=== PATIENT | female | born 1955 | race Caucasian/White ===

== ENCOUNTER 2017-08-10 16:23 | Emergency (ER) | payer OTHER ==
[~2017-08-10] VITALS: Ht 160 cm; Wt 49.0 kg
[~2017-08-10 16:23] MED LIST: ACETAMINOPHEN-1 EAC1 PO; DIAZEPAM5 MG PO; ESTRADIOL1 EA10 TD; HYDROCODON-ACE1 EA11 PO; IBUPROFEN800 MG PO; METOPROLOL TART25 MG PO; NORCO 5-325 TA1 EACH PO; PERCOCET 5-3251 EACH PO; SIMVASTATIN20 MG PO; TOBRADEX ST EYE5 ML OPTH; ZOLPIDEM TART6.25 MG PO
[2017-08-10] MEDS ORDERED: TYLENOL WITH C1 EACH PO (16:40)
== END 2017-08-10 18:39 | disposition home or self-care (01) ==
LOC: ED 16:23
PROC: 0HQKXZZ Repair Right Lower Leg Skin, External Approach (ICD-10-PCS; principal; 2017-08-10)
DX: T81.30XA Disruption of wound, unspecified, initial encounter (principal); I48.91 Unspecified atrial fibrillation; Z98.890 Other specified postprocedural states; Z88.2 Allergy status to sulfonamides; Z88.8 Allergy status to other drugs, medicaments and biological substances; Z90.710 Acquired absence of both cervix and uterus; Z79.899 Other long term (current) drug therapy
CPT/HCPCS: 12002; 90471; 90715; 96372; 99283; J0696

== ENCOUNTER 2019-01-21 08:59 | Emergency (ER) | payer OTHER ==
[~2019-01-21] VITALS: Ht 160 cm; Wt 49.9 kg
--- OUTSIDE RECORDS SUMMARY | ~2019-01-21 | XMS | Clinical Summary ---
Demographics + + + | Address | [address] | | | [place] [address] | + + + | Home Phone | | + + + | Preferred Language | Unknown | + + + | Marital Status | | + + + | Anglican Affiliation | Unknown | + + + | Race | Unknown | + + + | Ethnic Group | Unknown | + + + Author + + + | Author | [facility] | | | and [place] | + + + | Organization | [facility] | | | and [place] | + + + | Address | Unknown | + + + | Phone | Unavailable | + + + Support + + +---------+ + | Name | Relationship | Address | Phone | + + +---------+ + | Diony Vera | ECON | Unknown | | + + +---------+ + | Devon Riggs | ECON | Unknown | | + + +---------+ + | Ricardo Escobar | ECON | Unknown | | + + +---------+ + Care Team Providers + +------+ + | Care Cannery Tender Engineer Name | Role | Phone | + +------+ + | Tomer Wills MD | PP | | + +------+ + Allergies + + + + + + | Active Allergy | Reactions | Severity | Noted | Comments | | | | | Date | | + + + + + + | Diltiazem | Other (See Comments) | Low | 02/18/20 | Severe | | | | | 17 | migraines,"bleeding | | | | | | blood vessels in my | | | | | | eyes" | + + + + + + | Droperidol | Nausea Only | Low | 10/14/20 | | | | | | 11 | | + + + + + + | Metoclopramide | Nausea Only | Low | 10/14/20 | | | | | | 11 | | + + + + + + | Sulfa Antibiotics | Nausea Only | Low | 10/23/20 | | | | | | 10 | | + + + + + + | Tizanidine | Other (See Comments) | Low | | AKA "Zanaflex" - | | Hydrochloride | | | | Severe dizziness | + + + + + + Current Medications + + +--------+---------+------+------+-------+ | Prescription | Sig. | Disp. | Refills | Star | End | Statu | | | | | | t | Date | s | | | | | | Date | | | + + +--------+---------+------+------+-------+ | simvastatin | Take 20 mg by mouth | | | | | Activ | | (ZOCOR) 20 mg tablet | nightly. | | | | | e | + + +--------+---------+------+------+-------+ | Pediatric Multiple | Take 1 tablet by | | | | | Activ | | Vit-C-FA | mouth Every other | | | | | e | | (NICOLLE GUMMIES | day. | | | | | | | OMEGA-3 DHA PO) | | | | | | | + + +--------+---------+------+------+-------+ | ondansetron | Take 1 tablet by | 2 | 0 | 10/1 | | Activ | | (ZOFRAN) 4 mg tablet | mouth as needed for | tablet | | 7/20 | | e | | | Nausea. Begin bowel | | | 16 | | | | | prep, if nausea, | | | | | | | | stop prep, take med | | | | | | | | and restart prep 1 | | | | | | | | hr later. | | | | | | + + +--------+---------+------+------+-------+ | diazePAM (VALIUM) | Take 5 mg by mouth | | | 03/2 | | Activ | | 5 mg tablet | as needed. | | | 3/20 | | e | | | | | | 17 | | | + + +--------+---------+------+------+-------+ | zolpidem (AMBIEN | Take 6.25 mg by | | | 04/0 | | Activ | | CR) 6.25 mg CR | mouth nightly as | | | 4/20 | | e | | tablet | needed for Sleep. | | | 17 | | | + + +--------+---------+------+------+-------+ | ibuprofen (ADVIL, | Take 200 mg by mouth | | | | | Activ | | MOTRIN) 200 mg | every 8 hours as | | | | | e | | tablet | needed for Pain. | | | | | | + + +--------+---------+------+------+-------+ | estradiol | Patch 0.5mg, twice | | | | | Activ | | (VIVELLE-DOT) 0.025 | per week. | | | | | e | | MG/24HR | | | | | | | + + +--------+---------+------+------+-------+ | metoprolol | Take 12.5 mg by | | | | | Activ | | tartrate (LOPRESSOR) | mouth 2 times daily. | | | | | e | | 25 mg tablet | | | | | | | + + +--------+---------+------+------+-------+ | | Take 1 tablet by | | | | | Activ | | acetaminophen-codein | mouth every 12 hours | | | | | e | | e (TYLENOL #3) | as needed for Pain. | | | | | | | 300-30 mg per tablet | | | | | | | + + +--------+---------+------+------+-------+ | aspirin 325 mg | Take 1 tablet by | 30 | | | | Activ | | tablet | mouth Daily. | tablet | | | | e | + + +--------+---------+------+------+-------+ Active Problems + + + | Problem | Noted Date | + + + | Body mass index (BMI) less than 20 | 02/15/2017 | + + + | HTN (hypertension) | 02/15/2017 | + + + | H/O Hysterectomy | 02/15/2017 | + + + | Beta Chandler - Daily Use | 02/15/2017 | + + + | H/O RIGHT Patellar fracture - Dec 2016 | 02/15/2017 | + + + | H/O RIGHT Ankle fracture - 2005 | 02/15/2017 | + + + | Pain Patella K-Wires - Feb 2017 | 02/15/2017 | + + + | Beat, premature ventricular | 01/12/2012 | + + + | Supraventricular tachycardia (HCC) | 01/12/2012 | + + + | UPPER RESPIRATORY INFECTION | | + + + | ANOREXIA | | + + + | Anxiety - Anxiolytic Use | | + + + | Insomnia | | + + + Social History + +-------+ [...] + +---------+ + | Alcohol Use | Drinks/We | oz/Week | Comments | | | ek | | | + + +---------+ + | No | 0 | 0.0 | | | | Standard | | | | | drinks or | | | | | | | | | | equivalen | | | | | t | | | + + +---------+ + + + + | Sex Assigned at | Date Recorded | | | | + + + | Not on file | | + + + Last Filed Vital Signs + + + + | Vital Sign | Reading | Time Taken | + + + + | Blood Pressure | 131/81 | 07/14/20171114 PDT | + + + + | Pulse | 52 | 07/14/20171114 PDT | + + + + | Temperature | 36.5 C (97.7 F) | 08/26/2017812 PDT | + + + + | Respiratory Rate | 16 | 07/14/20171114 PDT | + + + + | Oxygen Saturation | 98% | 07/14/20171114 PDT | + + + + | Inhaled Oxygen | - | - | | Concentration | | | + + + + | Weight | 49.4 kg (109 lb) | 08/26/2017812 PDT | + + + + | Height | 160 cm (5' 3") | 08/26/2017812 PDT | + + + + | Body Mass Index | 19.31 | 08/26/2017812 PDT | + + + + Plan of Treatment + + + + + | Health Maintenance | Due Date | Last Done | Comments | + + + + + | Hepatitis C | | | | | Screening | 5 | | | + + + + + | Vaccine: | | | | | Dtap/Tdap/Td (1 - | 4 | | | | Tdap) | | | | + + + + + | BREAST CANCER | | | | | SCREENING (MAMM Q2 | 5 | | | | YEARS 50-74) | | | | + + + + + | Vaccine: Zoster (1 | | | | | of 2) | 5 | | | + + + + + | Colorectal Cancer | | 06/28/2007 | | | Screening | 7 | | | | (Colonoscopy) | | | | + + + + + | Vaccine: Influenza | | | | | (#1) | 8 | | | + + + + + Results Not on filefrom Last 3 Months Insurance + +--------+ +--------+ +---------+ | Payer | Benefi | Subscriber | Type | Phone | Address | | | t Plan | ID | | | | | | / | | | | | | | Group | | | | | + +--------+ +--------+ +---------+ | PACIFICSOURCE | PACIFI | [id number] | Indemn | +- | | | | CSOURC | | ity | [id number] | | | | E | | | | | | | ADMIN | | | | | | | PREF | | | | | | | PSN | | | | | + +--------+ +--------+ +---------+ | GEHA | GEHA | [id number] | PPO | +- | | | | AETNA | | | [phone] | | | | PPO | | | | | + +--------+ +--------+ +---------+ + +--------+ +--------+ + + | Guarantor Name | Accoun | Relation to | Date | Phone | Billing Address | | | t Type | Patient | of | | | | | | | | | | + +--------+ +--------+ + + | LILIAN VERA | Person | Self | [birth year] | Home: | [id number] [place] [address] | | JUNE | al/Jose Enrique | | 1955 | [phone] | [place] [address] | | | vivien | | | [phone] | | + +--------+ +--------+ + +
--- OUTSIDE RECORDS SUMMARY | ~2019-01-21 | XMS | Clinical Summary ---
Demographics + + + | Address | [address] | | | [place] [address] | + + + | Home Phone | | + + + | Preferred Language | Unknown | + + + | Marital Status | | + + + | Anabaptism Affiliation | Unknown | + + + | Race | Unknown | + + + | Ethnic Group | Unknown | + + + Author + + + | Author | [facility] | + + + | Organization | [facility] | + + + | Address | Unknown | + + + | Phone | Unavailable | + + + Support + + + + + | Name | Relationship | Address | Phone | + + + + + | Ricardo Vera | ECON | [address] | | | | | [place] | | | | | [address] | | + + + + + | Diony Escobar | ECON | Unknown | | + + + + + | Barbara Velásquez | ECON | Unknown | | + + + + + Care Team Providers + +------+ + | Care Racing Secretary Name | Role | Phone | + [...] +------+-------+ + | PREMERA | PREMER | [id number] | | | [address] [address] | | | A | [address] | | | [place] | | | [place] | | | | [phone] | | | [place] | | | | | | | [place] | | | | | + +--------+ +------+-------+ + | [employer] | FC-NET | [id number] | | | | | | WORK [...] | Self | [birth year] | Home: | [address] | | | al/Fam | | 1955 | [phone] [place] [address] | | | vivien | | | [address] | | + +--------+ +--------+ + +
--- OUTSIDE RECORDS SUMMARY | ~2019-01-21 | XMS | Clinical Summary ---
Demographics + + + | Address | [address] | | | [place] [address] | + + + | Home Phone | | + + + | Preferred Language | Unknown | + + + | Marital Status | | + + + | Hindu Affiliation | Unknown | + + + | Race | Unknown | + + + | Ethnic Group | Unknown | + + + Author + + + | Author | [facility] | | | and [place] | + + + | Organization | [facility] | | | and [place] | [...] Team Providers + +------+ + | Care Assurance Manager Name | Role | Phone | [...] +--------+ +---------+ | PACIFICSOURCE | PACIFI | [id number] | Indemn | +- | | | | [employer]OURC | | ity | [phone] | | | | E | | | | | | | ADMIN | | | | | | | PREF | | | | | | | PSN | | | | | + +--------+ +--------+ +---------+ | GEHA | GEHA | [id number] | PPO | +- | | | [...] | Self | [birth year] | Home: | [id number] [place] [address] | | JUNE | al/Jose Enrique | | 1955 | [phone] | [place] [address] | | | vivien | | | [phone] | | + +--------+ +--------+ + +
--- OUTSIDE RECORDS SUMMARY | ~2019-01-21 | XMS | Clinical Summary ---
Demographics + + + | Address | [address] | | | [place] [address] | + + + | Home Phone | | + + + | Preferred Language | Unknown | + + + | Marital Status | | + + + | Adventist Affiliation | Unknown | + + + | Race | Unknown | + + + | Ethnic Group | Unknown | + + + Author + + + | Author | [facility] | + + + | Organization | [facility] | + + + | Address | Unknown | + + + | Phone | Unavailable | + + + Support + + + + + | Name | Relationship | Address | Phone | + + + + + | Ricardo Vera | ECON | [address] | | | | | [place] | | | | | [address] | | + + + + + | Diony Escobar | ECON | Unknown | | + + + + + | Barbara Velásquez | ECON | Unknown | | + + + + + Care Team Providers + +------+ + | Care Plain Clothes Police Officer Name | Role | Phone | [...] +------+-------+ + | PREMERA | PREMER | [id number] | | | [address] [address] | | | A | 2 | | | [place] | | | [place] | | | | [phone] | | | [place] | | | | | | | [place] | | | | | + +--------+ +------+-------+ + | [employer] | FC-NET | [id number] | | | | | | WORK [...] | Self | [birth year] | Home: | [address] | | | al/Fam | | 1955 | [phone] | [place] [address] | | | vivien | | | [address] | | + +--------+ +--------+ + +
[~2019-01-21 08:59] MED LIST changes: +TYLENOL WITH C1 EACH PO
--- OUTSIDE RECORDS SUMMARY | 2019-01-21 09:02 | XMS ---
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 EGely VISIT COUNT (12 MO.) [address] [facility] [place] TOTAL 1 NOTE: Visits indicate total known visits. ED/UCC VISIT TRACKING (12 MO.) 01/21/2019 09:00 [facility] [place] TYPE: Emergency COMPLAINT: - RAPID HEART RATE INPATIENT VISIT TRACKING (12 MO.) No inpatient visits to display in this time frame [id number]
[2019-01-21] MEDS ORDERED: SIMVASTATIN20 MG PO (09:28)
== END 2019-01-21 10:07 | disposition home or self-care (01) ==
LOC: ED 08:59
DX: I47.1 Supraventricular tachycardia (principal); I48.91 Unspecified atrial fibrillation; Z90.710 Acquired absence of both cervix and uterus; Z88.2 Allergy status to sulfonamides; Z88.8 Allergy status to other drugs, medicaments and biological substances; Z79.899 Other long term (current) drug therapy
CPT/HCPCS: 0296T; 0297T; 0298T; 99284

== ENCOUNTER 2019-02-17 06:09 | Emergency (ER) | payer OTHER ==
[~2019-02-17] VITALS: Ht 160 cm; Wt 49.9 kg
--- OUTSIDE RECORDS SUMMARY | ~2019-02-17 | XMS | Clinical Summary ---
Demographics + + + | Address | [address] | | | [place] [address] | + + + | Home Phone | | + + + | Preferred Language | Unknown | + + + | Marital Status | | + + + | Rastafarian Affiliation | Unknown | + + + | Race | Unknown | + + + | Ethnic Group | Unknown | + + + Author + + + | Author | [facility] | | | and [place] | + + + | Organization | [facility] | | | and [place] | + + + | Address | Unknown | + + + | Phone | Unavailable | + + + Support + + +---------+ + | Name | Relationship | Address | Phone | + + +---------+ + | Diony Reynoso | ECON | Unknown | | + + +---------+ + | Devon Riggs | ECON | Unknown | | + + +---------+ + | Ricardo Escobar | ECON | Unknown | | + + +---------+ + Care Team Providers + +------+ + | Care Hospital Orderly Name | Role | Phone | + [...] | + + + + + + Medications + + + +---------+------+------+-------+ | Medication | Sig | Dispensed | Refills | Star | End | Statu | | | | | | t | Date | s | | | | | | Date | | | + + + +---------+------+------+-------+ | simvastatin | Take 20 mg by mouth | | 0 | | | Activ | | (ZOCOR) 20 mg tablet | nightly. | | | | | e | + + + +---------+------+------+-------+ | Pediatric Multiple | Take 1 tablet by | | 0 | | | Activ | | Vit-C-FA | mouth Every other | | | | | e | | (NICOLLE GUMMIES | day. | | | | | | | OMEGA-3 DHA PO) | | | | | | | + + + +---------+------+------+-------+ | ondansetron | Take 1 tablet by [...] | | | | + + + +---------+------+------+-------+ | diazePAM (VALIUM) | Take 5 mg by mouth | | 0 | 03/2 | | Activ | | 5 mg tablet | as needed. | | | 3/20 | | e | | | | | | 17 | | | + + + +---------+------+------+-------+ | zolpidem (AMBIEN | Take 6.25 mg by | | 0 | 04/0 | | Activ | | CR) 6.25 mg CR | mouth nightly as | | | 4/20 | | e | | tablet | needed for Sleep. | | | 17 | | | + + + +---------+------+------+-------+ | ibuprofen (ADVIL, | Take 200 mg by mouth | | 0 | | | Activ | | MOTRIN) 200 mg | every 8 hours as | | | | | e | | tablet | needed for Pain. | | | | | | + + + +---------+------+------+-------+ | estradiol | Patch 0.5mg, twice | | 0 | | | Activ | | (VIVELLE-DOT) 0.025 | per week. | | | | | e | | MG/24HR | | | | | | | + + + +---------+------+------+-------+ | metoprolol | Take 12.5 mg by | | 0 | | | Activ | | tartrate (LOPRESSOR) | mouth 2 times daily. | | | | | e | | 25 mg tablet | | | | | | | + + + +---------+------+------+-------+ | | Take 1 tablet by | | 0 | | | Activ | | acetaminophen-codein | mouth every 12 hours | | | | | e | | e (TYLENOL #3) | as needed for Pain. | | | | | | | 300-30 mg per tablet | | | | | | | + + + +---------+------+------+-------+ | aspirin 325 mg | Take 1 tablet by | 30 | 0 | | | Activ | | tablet | mouth Daily. | tablet | | | | e | + + + +---------+------+------+-------+ Active Problems + + + | Problem [...] | + + + | Supraventricular tachycardia | 01/12/2012 | + + + | [...] recent travel history available. | + + Last Filed Vital Signs + [...] | + + + + + | Breast Cancer | | | | | Screening (Ages | 5 | | | | 50-74) | | | | + + [...] Vaccine: Influenza | | | | | (Season Ended) | 9 | | | + + + + + Results Not on filefrom Last 3 Months Insurance + +--------+ +--------+ +---------+--------+ | Payer | Benefi | Subscriber | Effect | Phone | Address | Type | | | t Plan | ID | estefani | | | | | | / | | Dates | | | | | | Group | | | | | | + +--------+ +--------+ +---------+--------+ | PACIFICSOURCE | PACIFI | [id number] | 06/08/20 | [id number] | | Indemn | | | [employer]OURC | | 17-Pre | 2 | | ity | | | E | | sent | | | | | | ADMIN | | | | | | | | PREF | | | | | | | | PSN | | | | | | + +--------+ +--------+ +---------+--------+ | GEHA | GEHA | [id number] | | [id number] | | PPO | | | AETNA | | 016-Pr | 6 | | | | | PPO | | esent | | | | + +--------+ +--------+ +---------+--------+ + +--------+ +--------+ + + | Guarantor Name | Accoun | Relation to | Date | Phone | Billing Address | | | t Type | Patient | of | | | | | | | | | | + +--------+ +--------+ + + | Lilian Reynoso | Person | Self | [birth year] | | [address] | | [place] | al/Fam | | 1955 | [phone] | [place] [address] | | | vivien | | | 9 (Home) | | + +--------+ +--------+ + + Advance Directives Patient has advance care planning documents, and code status on file. For more information, please contact:[facility] [place] [address] + + + + + | Code Status | Date | Date | Comments | | | Activated | Inactivated | | + + + + + | Full Code | 07/14/2017 | 07/14/2017 | | | | 9:34 | 14:18 | | + + + + + + + + +---+ | | | | | + + + +---+ | Full Code | 02/15/2017 | 02/15/2017 | | | | 16:08 | 20:05 | | + + + +---+
--- OUTSIDE RECORDS SUMMARY | ~2019-02-17 | XMS | Clinical Summary ---
Demographics + + + | Address | [address] | | | [place] [address] | + + + | Home Phone | | + + + | Preferred Language | Unknown | + + + | Marital Status | | + + + | Lutheran Affiliation | Unknown | + + + | Race | Unknown | + + + | Ethnic Group | Unknown | + + + Author + + + | Author | [facility] | + + + | Organization | [facility] | + + + | Address | Unknown | + + + | Phone | Unavailable | + + + Support + + + + + | Name | Relationship | Address | Phone | + + + + + | Ricardo Vera | ECON | [address] | | | | | [place] | | | | | [address] | | + + + + + | Diony Escobar | ECON | Unknown | | + + + + + | Barbara Velásquez | ECON | Unknown | | + + + + + Care Team Providers + +------+ + | Care Obstetrics Nurse Name | Role | Phone | + [...] +------+-------+ + | PREMERA | PREMER | [id number] | | | [address] [address] | | | A | 2 | | | [place] | | | [place] | | | | [phone] | | | [place] | | | | | | | [place] | | | | | + +--------+ +------+-------+ + | [employer] | FC-NET | [id number] | | | | | | WORK [...] | Self | [birth year] | Home: | [address] | | | al/Fam | | 1955 | [phone] | [place] [address] | | | vivien | | | [address] | | + +--------+ +--------+ + +
--- OUTSIDE RECORDS SUMMARY | ~2019-02-17 | XMS | Clinical Summary ---
Demographics + + + | Address | [address] | | | [place] [address] | + + + | Home Phone | | + + + | Preferred Language | Unknown | + + + | Marital Status | | + + + | Nondenominational Affiliation | Unknown | + + + | Race | Unknown | + + + | Ethnic Group | Unknown | + + + Author + + + | Author | [facility] | + + + | Organization | [facility] | + + + | Address | Unknown | + + + | Phone | Unavailable | + + + Support + + + + + | Name | Relationship | Address | Phone | + + + + + | Ricardo Vera | ECON | [address] | | | | | [place] | | | | | [address] | | + + + + + | Diony Escobar | ECON | Unknown | | + + + + + | Barbara Velásquez | ECON | Unknown | | + + + + + Care Team Providers + +------+ + | Care Cook Helper Meat Name | Role | Phone | + [...] +------+-------+ + | PREMERA | PREMER | [id number] | | | [address] [address] | | | A | [address] | | | [place] | | | [place] | | | | [phone] | | | [place] | | | | | | | [place] | | | | | + +--------+ +------+-------+ + | [employer] | FC-NET | [id number] | | | | | | WORK [...] | Self | [birth year] | Home: | [address] | | | al/Fam | | 1955 | [phone] | [place] [address] | | | vivien | | | [address] | | + +--------+ +--------+ + +
--- OUTSIDE RECORDS SUMMARY | ~2019-02-17 | XMS | Clinical Summary ---
Demographics + + + | Address | [address] | | | [place] [address] | + + + | Home Phone | | + + + | Preferred Language | Unknown | + + + | Marital Status | | + + + | Samaritan Affiliation | Unknown | + + + | Race | Unknown | + + + | Ethnic Group | Unknown | + + + Author + + + | Author | [facility] | | | and [place] | + + + | Organization | [facility] | | | and [...] Team Providers + +------+ + | Care Saddle Mechanic Name | Role | Phone | [...] +--------+ +---------+--------+ | [employer]OURCE | PACIFI | [id number] | 06/08/20 | [id number] | | Indemn | | | [employer]OURC | | 17-Pre | 2 | | ity | | | E | | sent | | | | | | ADMIN | | | | | | | | PREF | | | | | | | | PSN | | | | | | + +--------+ +--------+ +---------+--------+ | GEHA | GEHA | [id number] | | [id number] | | PPO | | | AETNA [...] Person | Self | [birth year] | | [address] | | [place] | al/Fam | | 1955 | [phone] | [place] [address] | | | vivien | | | 9 (Home) | | + +--------+ +--------+ + + Advance Directives Patient has advance care planning documents, and code status on file. For more information, please contact:[facility] [place] [address] + + + + + | Code [...]
--- OUTSIDE RECORDS SUMMARY | 2019-02-17 06:12 | XMS ---
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 [place] VISIT COUNT (12 MO.) [address] [place] [address] TOTAL 2 NOTE: Visits indicate total known visits. ED/UCC VISIT TRACKING (12 MO.) 02/17/2019 06:10 [facility] [place] TYPE: Emergency COMPLAINT: - SOB 01/21/2019 09:00 [facility] [place] TYPE: Emergency COMPLAINT: - RAPID HEART RATE DIAGNOSES: - Palpitations - Other long-term (current) drug therapy - Supraventricular tachycardia - Acquired absence of both cervix and uterus - Allergy status to sulfonamides status - Unspecified atrial fibrillation - Allergy status to other drugs, medicaments and biological substances status INPATIENT VISIT TRACKING (12 MO.) No inpatient visits to display in this time frame [id number]
--- NOTE | 2019-02-17 15:52 | EKG ---
[facility] [address] [place], [place] [address] Signed Sinus tachycardia Low voltage QRS Septal infarct , age undetermined Abnormal ECG No previous ECGs available Confirmed by KEVIN FREITAS MD ([id number]) on 02/17/2019 3:51:50 PM Electronically Signed By: KEVIN FREITAS MD 02/17/19 1552 PATIENT NAME: JONELLE VERA Electrocardiogram DATE OF : 55 PHYSICIAN: KEVIN FREITAS MD REPORT #: [id number] REPORT IS CONFIDENTIAL AND NOT TO BE RELEASED WITHOUT AUTHORIZATION
== END 2019-02-17 08:15 | disposition home or self-care (01) ==
LOC: ED 06:09
DX: I48.91 Unspecified atrial fibrillation (principal); Z90.710 Acquired absence of both cervix and uterus; Z88.2 Allergy status to sulfonamides; Z88.8 Allergy status to other drugs, medicaments and biological substances; Z79.899 Other long term (current) drug therapy
CPT/HCPCS: 71045; 80053; 83735; 84484; 85025; 93005; 93010; 99285-25; J7030

== ENCOUNTER 2019-11-07 09:15 | Emergency (ER) | payer OTHER ==
[~2019-11-07] VITALS: Ht 160 cm; Wt 49.9 kg
--- OUTSIDE RECORDS SUMMARY | ~2019-11-07 | XMS | Encounter Summary ---
Demographics + + + | Address | [address] | | | [place] [address] | + + + | Home Phone | | + + + | Preferred Language | Unknown | + + + | Marital Status | | + + + | Muslim Affiliation | Unknown | + + + | Race | Unknown | + + + | Ethnic Group | Unknown | + + + Author + + + | Author | [facility] | | | and [place] | + + + | Organization | [facility] | | | and [place] | + + + | Address | Unknown | + + + | Phone | Unavailable | + + + Support + + +---------+ + | Name | Relationship | Address | Phone | + + +---------+ + | Diony Motanic | ECON | Unknown | | + + +---------+ + | Devon Riggs | ECON | Unknown | | + + +---------+ + | Ricardo Escobar | ECON | Unknown | | + + +---------+ + Care Team Providers + +------+ + | Care Assembler Movement Name | Role | Phone | + +------+ + | Tomer Wills MD | PCP | | + +------+ + Reason for Visit + + + | Reason | Comments | + + + | Follow-up | right knee | + + + Encounter Details +--------+---------+ + + + | Date | Type | Department | Care Team | Description | +--------+---------+ + + + | 05/31/ | Office | [facility] | Tyler Florian | S/P ORIF (open | | 2017 | Visit | ORTHOPEDIC SURGERY | MD Chanda Medina [facility] | reduction internal | | | | [address] [place] [address] | KAREEM THORNTON | fixation) fracture | | | | [place] | [address] | (Primary Dx) | | | | [address] | | | | | | [phone] | | | +--------+---------+ + + + Social History + +-------+ +--------+------+ | Tobacco Use | Types | Packs/Day | Years | Date | | | | | Used | | + +-------+ +--------+------+ | Never Smoker | | | | | + +-------+ +--------+------+ + +---+---+---+ | Smokeless Tobacco: | | | | | Never Used | | | | + +---+---+---+ + + +---------+ + | Alcohol Use | Drinks/Week | oz/Week | Comments | + + +---------+ + | Not Asked | 0 Standard drinks | 0.0 | | | | or equivalent | | | + + +---------+ + + + + | Sex Assigned at | Date Recorded | | | | + + + | Not on file | | + + + + + + + | Job Start Date | Occupation | Industry | + + + + | Not on file | Not on file | Not on file | + + + + + + + + | Travel History | Travel Start | Travel End | + + + + + + | No recent travel history available. | + + documented as of this encounter Last Filed Vital Signs + + + + + | Vital Sign | Reading | Time Taken | Comments | + + + + + | Blood Pressure | - | - | | + + + + + | Pulse | - | - | | + + + + + | Temperature | 36.5 C (97.7 F) | 2017 10:43 AM | | | | | PDT | | + + + + + | Respiratory Rate | - | - | | + + + + + | Oxygen Saturation | - | - | | + + + + + | Inhaled Oxygen | - | - | | | Concentration | | | | + + + + + | Weight | 49 kg (108 lb) | 2017 10:43 AM | | | | | PDT | | + + + + + | Height | 160 cm (5' 3") | 2017 10:43 AM | | | | | PDT | | + + + + + | Body Mass Index | 19.13 | 2017 10:43 AM | | | | | PDT | | + + + + + documented in this encounter Progress Notes Tyler Florian MD - 2017 10:30 AM Veda returns today for follow-up of her right knee patellar fracture that was treated by Dr. Parekh on December 18 with open reduc tion and internal fixation utilizing K wires and a figure of 8 cerclage wire. She then subs equently underwent hardware modification that I performed on February 15 of this year which inc luded resection of a protruding portion of one K wire. She has been attending travel physical therapist apy faithfully and has regained a functional range of motion and would very much like to hav e her hardware removed because of continued ongoing hardware irritation. Exam of the patient's right knee reveals that she has a well-healed anterior knee incision. There is mild swelling of the knee but no significant effusion is noted. The patient has motion from 0-90. Imaging: X-rays taken of the right knee from today are reviewed which show that the fractur e is healed nicely. The hardware remains well placed. Advice: I feel it is reasonable to proceed with hardware removal from her right knee as she has remained symptomatic as expected. We therefore will schedule [facility] for right knee earnest roderick removal following financial clearance at a time that is convenient for her schedule.El ectronically signed by Tyler Florian MD at 2017 6:26 PM PDTdocumented in this encounter Plan of Treatment Not on filedocumented as of this encounter Visit Diagnoses + + | Diagnosis | + + | S/P ORIF (open reduction internal fixation) fracture - Primary | + + documented in this encounter
--- OUTSIDE RECORDS SUMMARY | ~2019-11-07 | XMS | Encounter Summary ---
Demographics + + + | Address | [address] | | | [place] [address] | + + + | Home Phone | | + + + | Preferred Language | Unknown | + + + | Marital Status | | + + + | Christianity Affiliation | Unknown | + + + | Race | Unknown | + + + | Ethnic Group | Unknown | + + + Author + + + | Author | [facility] | | | and [place] | + + + | Organization | [facility] | | | and [place] [...] Team Providers + +------+ + | Care Last Picker Name | Role | Phone | + +------+ + | Tomer Wills MD | PCP | | + +------+ + Reason for Visit + + + | Reason | Comments | + + + | Appointment Question | | + + + Encounter Details +--------+ + + + + | Date | Type | Department | Care Team | Description | +--------+ + + + + | 03/02/ | Telephone | [facility] | Tyler Florian | Appointment Question | | 2016 | | ORTHOPEDIC SURGERY | MD Carol [address] | | | | | [address] [facility] | [place], [place] | | | | | [place], [place] | [address] | | | | | [address] | | | | | | [phone] | | | +--------+ + + + + Social History + +-------+ [...] + + documented as of this encounter Plan of Treatment Not on filedocumented as of this encounter Visit Diagnoses Not on filedocumented in this encounter"
--- OUTSIDE RECORDS SUMMARY | ~2019-11-07 | XMS | Encounter Summary ---
Demographics + + + | Address | [address] | | | [place] [address] | + + + | Home Phone | | + + + | Preferred Language | Unknown | + + + | Marital Status | | + + + | Sabianism Affiliation | Unknown | + + + | Race | Unknown | + + + | Ethnic Group | Unknown | + + + Author + + + | Author | [facility] | | | and [place] | + + + | Organization | [facility] | | | and [place] [...] Team Providers + +------+ + | Care Academic Advising Director Name | Role | Phone | + +------+ + | Tomer Wills MD | PCP | | + +------+ + Reason for Visit Auth/Cert +--------+--------+ + + + + | Status | Reason | Specialty | Diagnoses / | Referred By | Referred To | | | | | Procedures | Contact | Contact | +--------+--------+ + + + + | | | | Diagnoses | | | | | | | S/P ORIF | | | | | | | (open | | | | | | | reduction | | | | | | | internal | | | | | | | fixation) | | | | | | | fracture | | | | | | | (Z96.7, | | | | | | | Z87.81) | | | | | | | Procedures | | | | | | | [place] REMOVAL | | | | | | | DEEP IMPLANT | | | | | | | Right Knee | | | | | | | Hardware | | | | | | | Removal (s/p | | | | | | | [facility] | | | +--------+--------+ + + + + Encounter Details +--------+---------+ + + + | Date | Type | Department | Care Team | Description | +--------+---------+ + + + | 07/14/ | Surgery | [facility] | Tyler Florian | Right Knee Hardware | | 2017 | | MED CTR OR INTRA OP | MD Carol [address] | Removal (s/p | | | | [address] | [place] | [facility] | | | | [place], [place] | [address] | | | | | [address] | | | | | | [phone] | | | +--------+---------+ + + + [...] Comments | + + +---------+ + | No | 0 Standard drinks | 0.0 | [...] + + + | Blood Pressure | 131/81 | 07/14/2017 11:15 AM | | | | | PDT | | + + + + + | Pulse | 52 | 07/14/2017 11:15 AM | | | | | PDT | | + + + + + | Temperature | 36.6 C (97.9 F) | 07/14/2017 9:33 AM | | | | | PDT | | + + + + + | Respiratory Rate | 16 | 07/14/2017 11:15 AM | | | | | PDT | | + + + + + | Oxygen Saturation | 98% | 07/14/2017 11:15 AM | | | | | PDT | | + + + + + | Inhaled Oxygen | - | - | | | Concentration | | | | + + + + + | Weight | 49.4 kg (109 lb) | 07/14/2017 7:22 AM | | | | | PDT | | + + + + + | Height | 160 cm (5' 3") | 07/14/2017 7:22 AM | | | | | PDT | | + + + + + | Body Mass Index | 19.31 | 07/14/2017 7:22 AM | | | | | PDT | | + + + + + documented in this encounter Discharge Instructions Instructions Loida Sanchez RN - 07/14/2017 Recovery After Procedural Sedation (Adult) You have been given medicine by vein to make you sleep during your surgery. This may have i ncluded both a pain medicine and sleeping medicine. Most of the effects have worn off. But y ou may still have some drowsiness for the next 6 to 8 hours. Home care Follow these guidelines when you get home: For the next 8 hours, you should be watched by a responsible adult. This person should m amy sure your condition is not getting worse. Don't drink any alcoholfor the next [address], operate dangerous machinery, or make important business or personal decisio nsduring the next 24 hours. Note: Your healthcare provider may tell you not to take any medicine by mouth for pain or s leep in the next 4 hours. These medicines may react with the medicines you were given in the hospital. This could cause a much stronger response than usual. Follow-up care Follow up with your healthcare provider if you are not alert and back to your usual level o f activity within 12 hours. When to seek medical advice Call your healthcare provider right away if any of these occur: Drowsiness gets worse Weakness or dizziness gets worse Repeated vomiting You can't be awakened Date Last Reviewed: 08/25/201619992044-4715 [facility]. [address] [place] [address], [place] [address]. All righ ts reserved. This information is not intended as a substitute for professional medical care. Always follow your healthcare professional's instructions. Please keep appointment in Dr Florian's office as already scheduled. Keep bandages clean and dry at right knee You can remove bandages from right knee in 5 days. Take pain medications as prescribed if necessary Take one aspirin 325 mg daily for the next 30 days for blood thinning therapy. If you have any questions, comments or concerns please contact our office. Do not exceed 4,000 mg of acetaminophen (Tylenol) per day. Hydrocodone-acetaminophen ([place] ) and Oxycodone-acetaminophen (Percocet) have 325 mg acetaminophen per tablet. Regular stren gth acetaminophen is 325 mg per tablet. Extra strength has 500 mg per tablet. Do not consume alcohol while taking opioid mediations. If constipation arises, try docusate-senna one tablet twice daily; milk of magnesia 30 mL o nce each night; or Miralax one capful (17 grams) dissolved in half a cup of water once daily for 3 days. If constipation does not resolve within 3 days after discharge, contact the doc tor's office. documented in this encounter Medications at Time of Discharge + + + +---------+ + + | Medication | Sig | Dispensed | Refills | Start | End Date | | | | | | Date | | + + + +---------+ + + | | Take 1 tablet by | | 0 | | | | acetaminophen-codein | mouth every 12 hours | | | | | | e (TYLENOL #3) | as needed for Pain. | | | | | | 300-30 mg per tablet | | | | | | + + + +---------+ + + | aspirin 325 mg | Take 1 tablet by | 30 | 0 | | | | tablet | mouth Daily. | tablet | | | | + + + +---------+ + + | diazePAM (VALIUM) | Take 5 mg by mouth | | 0 | 03//20 | | | 5 mg tablet | as needed. | | | 17 | | + + + +---------+ + + | estradiol | Patch 0.5mg, twice | | 0 | | | | (VIVELLE-DOT) 0.025 | per week. | | | | | | MG/24HR | | | | | | + + + +---------+ + + | ibuprofen (ADVIL, | Take 200 mg by mouth | | 0 | | | | MOTRIN) 200 mg | every 8 hours as | | | | | | tablet | needed for Pain. | | | | | + + + +---------+ + + | metoprolol | Take 12.5 mg by | | 0 | | | | tartrate (LOPRESSOR) | mouth 2 times daily. | | | | | | 25 mg tablet | | | | | | + + + +---------+ + + | ondansetron | Take 1 tablet by | 2 | 0 | /17/20 | | | (ZOFRAN) 4 mg tablet | mouth as needed for | tablet | | 16 | | | | Nausea. Begin bowel | | | | | | | prep, if nausea, | | | | | | | stop prep, take med | | | | | | | and restart prep 1 | | | | | | | hr later. | | | | | + + + +---------+ + + | Pediatric Multiple | Take 1 tablet by | | 0 | | | | Vit-C-FA | mouth Every other | | | | | | (NICOLLE GUMMILIN | day. | | | | | | OMEGA-3 DHA PO) | | | | | | + + + +---------+ + + | simvastatin | Take 20 mg by mouth | | 0 | | | | (ZOCOR) 20 mg tablet | nightly. | | | | | + + + +---------+ + + | zolpidem (AMBIEN | Take 6.25 mg by | | 0 | 02/10/20 | | | CR) 6.25 mg CR | mouth nightly as | | | 17 | | | tablet | needed for Sleep. | | | | | + + + +---------+ + + | | Take 1 tablet by | 60 | 0 | 07/14/20 | | | HYDROcodone-acetamin | mouth EVERY 4 TO 6 | tablet | | 17 | 7 | | ophen (NORCO) 10-325 | HOURS NEEDED for | | | | | | mg per tablet | Pain. | | | | | + + + +---------+ + + documented as of this encounter Plan of Treatment Not on filedocumented as of this encounter Procedures + +--------+ + + + | Procedure Name | Priori | Date/Time | Associated Diagnosis | Comments | | | ty | | | | + +--------+ + + + | REMOVE HARDWARE | | 07/14/2017 | S/P ORIF (open | | | LOWER EXTREMITY | | 8:31 AM | reduction internal | | | | | PDT | fixation) fracture | | | | | | (Z96.7, Z87.81) | | + +--------+ + + + documented in this encounter Visit Diagnoses Not on filedocumented in this encounter Administered Medications + +--------+---------+------+------+------+ | Medication Order | MAR | Action | Dose | Rate | Site | | | Action | Date | | | | + +--------+---------+------+------+------+ + +---+ | albuterol-ipratropium (DUONEB) | | | 2.5-0.5 mg/3 mL nebulizer | | | solution 3 mL 3 mL, | | | Nebulization, ONCE PRN, Wheezing, | | | Shortness of Breath, Starting | | | Wed07/14/17 at 0922, For 1 dose, | | | Recovery/Phase I | | + +---+ | | | + +---+ | diphenhydrAMINE (BENADRYL) 12.5 | | | mg/5 mL liquid 25 mg 25 mg, | | | Oral, EVERY 4 HOURS PRN, Itching, | | | Starting Wed07/14/17 at 0934, | | | Give nalbuphine 1st, if | | | ineffective or not ordered, | | | administer diphenhydrAMINE. | | | Oral route is preferred., | | | Post-op/Phase II | | + +---+ | | | + +---+ | diphenhydrAMINE (BENADRYL) | | | injection 12.5 mg 12.5 mg, | | | Intravenous, EVERY 4 HOURS PRN, | | | Itching, Starting Wed07/14/17 at | | | 0934, Give nalbuphine 1st, if | | | ineffective or not ordered, | | | administer diphenhydrAMINE. | | | Oral route is preferred., | | | Post-op/Phase II | | + +---+ | | | + +---+ | diphenhydrAMINE (BENADRYL) | | | tablet 25 mg 25 mg, Oral, EVERY | | | 4 HOURS PRN, Itching, Starting | | | Wed07/14/17 at 0934, Give | | | nalbuphine 1st, if ineffective or | | | not ordered, administer | | | diphenhydrAMINE. Oral route is | | | preferred., Post-op/Phase II | | + +---+ | | | + +---+ | fentaNYL (PF) injection 25-50 | | | mcg 25-50 mcg, Intravenous, | | | EVERY 5 MIN PRN, Pain, Starting | | | Wed07/14/17 at 0922, Maximum total | | | dose 250 mcg. PACU IV Narcotic | | | Priority: Only use fentanyl for | | | immediate post-op pain (one dose) | | | or breakthrough pain when any | | | other IV narcotics ordered have | | | been ineffective (if ordered). | | | If both morphine and | | | hydromorphone are ordered, use | | | morphine first, and use | | | hydromorphone if morphine | | | ineffective., Recovery/Phase I | | + +---+ | | | + +---+ + +-------+ +--------+---+---+ | HYDROmorphone (DILAUDID) | Given | 07/14/20 | 0.4 mg | | | | injection 0.2-0.4 mg 0.2-0.4 mg, | | 17 10:49 | | | | | Intravenous, EVERY 1 HOUR PRN, | | AM PDT | | | | | Pain, Starting 07/14/17 at | | | | | | | 0934, If oral route not an | | | | | | | option. Slow IV push, not faster | | | | | | | than 0.3mg/minute. First dose | | | | | | | must be lowest dose, titrate to | | | | | | | effective dose by repeat of | | | | | | | lowest dose every 30 minutes prn | | | | | | | pain, may not exceed maximum dose | | | | | | | ordered per interval. Use | | | | | | | Pasero Sedation Scale., | | | | | | | Post-op/Phase II | | | | | | + +-------+ +--------+---+---+ +---+---+ | | | +---+---+ + +-------+ +--------+---+---+ | HYDROmorphone (DILAUDID) | Given | 07/14/20 | 0.5 mg | | | | injection 0.2-0.5 mg 0.2-0.5 mg, | | 17 9:58 | | | | | Intravenous, EVERY 10 MIN PRN, | | AM PDT | | | | | Pain, Starting 07/14/17 at | | | | | | | 0922, Maximum total dose 4 mg. | | | | | | | PACU IV Narcotic Priority: Only | | | | | | | use fentanyl for immediate | | | | | | | post-op pain (one dose) or | | | | | | | breakthrough pain when any other | | | | | | | IV narcotics ordered have been | | | | | | | ineffective (if ordered). If | | | | | | | both morphine and hydromorphone | | | | | | | are ordered, use morphine first, | | | | | | | and use hydromorphone if morphine | | | | | | | ineffective., Recovery/Phase I | | | | | | + +-------+ +--------+---+---+ + + +--------+---+---+ | Given by Other | 07/14/20 | 0.5 mg | | | | | 17 9:46 | | | | | | AM PDT | | | | + + +--------+---+---+ +---+---+ | | | +---+---+ + +-------+ +-------+---+---+ | ketorolac (TORADOL) injection | Given | 07/14/20 | 30 mg | | | | 30 mg 30 mg, Intravenous, ONCE, | | 17 9:38 | | | | | Wed07/14/17 at 0945, For 1 dose, | | AM PDT | | | | | Recovery/Phase I | | | | | | + +-------+ +-------+---+---+ + +---+ | | | + +---+ | labetalol (TRANDATE) 5 mg/mL | | | injection 3-5 mg 3-5 mg, | | | Intravenous, EVERY 5 MIN PRN, For | | | SBP > 180, DBP > 100, Starting | | | Wed07/14/17 at 0922, Hold if HR < | | | 50. Maximum total dose 30mg. | | | Notify anesthesia if patient | | | requires more than 30mg., | | | Recovery/Phase I | | + +---+ | | | + +---+ | meperidine (DEMEROL) injection | | | 12.5 mg 12.5 mg, Intravenous, | | | PRN, Shivering, Starting Wed | | | 07/14/17 at 0922, For 2 doses, May | | | Repeat once in 5 min., | | | Recovery/Phase I | | + +---+ | | | + +---+ | midazolam (VERSED) 1 mg/mL | | | injection 0.5-2 mg 0.5-2 mg, | | | Intravenous, EVERY 5 MIN PRN, | | | Anxiety, or agitation, Starting | | | Wed07/14/17 at 0922, Maximum total | | | dose 2 mg., Recovery/Phase I | | + +---+ | | | + +---+ | ondansetron (ZOFRAN ODT) | | | disintegrating tablet 4 mg 4 mg, | | | Oral, EVERY 6 HOURS PRN, Nausea, | | | Vomiting, Starting Wed07/14/17 at | | | 0934, First line agent, | | | Post-op/Phase II | | + +---+ | | | + +---+ + +-------+ +------+---+---+ | ondansetron (ZOFRAN) injection | Given | 07/14/20 | 4 mg | | | | 4 mg 4 mg, Intravenous, ONCE | | 17 9:56 | | | | | PRN, Nausea, Starting Wed07/14/17 | | AM PDT | | | | | at 0922, For 1 dose, | | | | | | | Recovery/Phase I | | | | | | + +-------+ +------+---+---+ + +---+ | | | + +---+ | ondansetron (ZOFRAN) injection | | | 4 mg 4 mg, Intravenous, EVERY 6 | | | HOURS PRN, Nausea, Vomiting, | | | Starting Wed07/14/17 at 0934, | | | First line agent. Use PO option | | | unless NPO status or unable to | | | tolerate., Post-op/Phase II | | + +---+ | | | + +---+ + +-------+ +------+---+---+ | oxyCODONE (ROXICODONE) tablet | Given | 07/14/20 | 5 mg | | | | 2.5-10 mg 2.5-10 mg, Oral, EVERY | | 17 11:12 | | | | | 3 HOURS PRN, Pain, Starting Wed | | AM PDT | | | | | 07/14/17 at 0934, First dose must | | | | | | | be the lowest dose, can titrate | | | | | | | to effective dose by repeat of | | | | | | | lowest dose every 60 minutes prn | | | | | | | pain, may not exceed maximum dose | | | | | | | ordered per interval. Use Pasero | | | | | | | Sedation Scale., Post-op/Phase | | | | | | | II | | | | | | + +-------+ +------+---+---+ +---+---+ | | | +---+---+ + +-------+ +--------+---+ + | ropivacaine (NAROPIN) 5 mg/mL | Given | 07/14/20 | 10 mLs | | Surgical | | (0.5%) injection AURORA, Starting | | 17 8:34 | | | Site | | 07/14/17 at 0834, Intra-op | | AM PDT | | | | + +-------+ +--------+---+ + +---+---+ | | | +---+---+ documented in this encounter
--- OUTSIDE RECORDS SUMMARY | ~2019-11-07 | XMS | Encounter Summary ---
Demographics + + + | Address | [address] | | | [place] [address] | + + + | Home Phone | | + + + | Preferred Language | Unknown | + + + | Marital Status | | + + + | Faith Affiliation | Unknown | + + + | Race | Unknown | + + + | Ethnic Group | Unknown | + + + Author + + + | Author | [facility] | | | and [place] | + + + | Organization | [facility] | | | and [place] | + + + | Address | Unknown | + + + | Phone | Unavailable | + + + Support + + +---------+ + | Name | Relationship | Address | Phone | + + +---------+ + | Diony Motanic | ECON | Unknown | | + + +---------+ + | Devon Keely | ECON | Unknown | | + + +---------+ + | Ricardo Escobar | ECON | Unknown | | + + +---------+ + Care Team Providers + +------+ + | Care Logging Truck Driver Name | Role | Phone | + +------+ + PCP | Unavailable | + +------+ + Encounter Details +--------+ + + + + | Date | Type | Department | Care Team | Description | +--------+ + + + + | 07/14/ | Hospital | [facility] | Familia Alonso, | | | 2006 - | Encounter | MED CTR GENERIC IP | MD [address] | | | | | CONV DEPT [address] | [place], [place] | | | 07/19/ | | [place], | [address] | | | 2005 | | [place] [address] | | | | | | [phone] | | | +--------+ + + + + Social History + +-------+ +--------+------+ | Tobacco Use | Types | Packs/Day | Years | Date | | | | | Used | | + +-------+ +--------+------+ | Never Assessed | | | | | + +-------+ +--------+------+ + + + | Sex Assigned at [...]
--- OUTSIDE RECORDS SUMMARY | ~2019-11-07 | XMS | Encounter Summary ---
Demographics + + + | Address | [address] | | | [place] [address] | + + + | Home Phone | | + + + | Preferred Language | Unknown | + + + | Marital Status | | + + + | Jew Affiliation | Unknown | + + + | Race | Unknown | + + + | Ethnic Group | Unknown | + + + Author + + + | Author | [facility] | | | and [place] | + + + | Organization | [facility] | | | and [place] | + + + | Address | Unknown | + + + | Phone | Unavailable | + + + Support + + +---------+ + | Name | Relationship | Address | Phone | + + +---------+ + | Dioyn Motanic | ECON | Unknown | | + + +---------+ + | Devon Riggs | ECON | Unknown | | + + +---------+ + | Ricardo Escobar | ECON | Unknown | | + + +---------+ + Care Team Providers + +------+ + | Care Lead Warehouse Associate Name | Role | Phone | + +------+ + | Tomer Wills MD | PCP | | + +------+ + Reason for Visit + + + | Reason | Comments | + + + | Colonoscopy | | + + + Encounter Details +--------+ + + + + | Date | Type | Department | Care Team | Description | +--------+ + + + + | 09/23/ | Telephone | [facility] | Lance Aguiar MD | Colonoscopy | | 2015 | | GASTROENTEROLOGY | [address], [place] | | | | | [address] [facility] | [address] [place] | | | | | [address] [place] | [address] | | | | | [address] | | | | | | [phone] | | | +--------+ + + + [...]
--- OUTSIDE RECORDS SUMMARY | ~2019-11-07 | XMS | Encounter Summary ---
Demographics + + + | Address | [address] | | | [place] [address] | + + + | Home Phone | | + + + | Preferred Language | Unknown | + + + | Marital Status | | + + + | Jewish Affiliation | Unknown | + + + | Race | Unknown | + + + | Ethnic Group | Unknown | + + + Author + + + | Author | [facility] | | | and [place] | + + + | Organization | [facility] | | | and [place] [...] Team Providers + +------+ + | Care Low Pressure Kettle Operator Name | Role | Phone | + +------+ + | Tomer Wills MD | PCP | | + +------+ + Reason for Visit +---------+ + | Reason | Comments | +---------+ + | Post Op | right knee hardware removal DOS 07/14/17 | +---------+ + Encounter Details +--------+---------+ + + + | Date | Type | Department | Care Team | Description | +--------+---------+ + + + | 08/26/ | Office | [facility] | Vj Rutherford | S/P orthopedic | | 2017 | Visit | ORTHOPEDIC SURGERY | [address] | surgery, follow-up | | | | [address] [facility] | [facility] | exam (Primary Dx); | | | | [place] | [facility] [place] [address] | Dehiscence of | | | | [address] | [phone] | operative wound, | | | | [phone] | | initial encounter | +--------+---------+ + + + Social History [...] Temperature | 36.5 C (97.7 F) | 08/26/2017 8:13 AM | | | | | PDT [...] Weight | 49.4 kg (109 lb) | 08/26/2017 8:13 AM | | | | | PDT | | + + + + + | Height | 160 cm (5' 3") | 08/26/2017 8:13 AM | | | | | PDT | | + + + + + | Body Mass Index | 19.31 | 08/26/2017 8:13 AM | | | | | PDT | | + + + + + documented in this encounter Progress Notes Vj Rutherford PA-C - 08/26/2017 8:15 AM PDTFormatting of this note might be differe nt from the original. Name:Lilian Reynoso Todays Date: 08/26/2017 Age: 62 y.o. PCP: Tomer Wills MD Chief Complaint Patient presents with Post Op right knee hardware removal DOS 07/14/17 SUBJECTIVE: Patient returns today for postoperative visit following right hip hardware removal and subs equent dehiscence of incision site that occurred the following week when she fell. Returns today for suture removal and postoperative visit. This today that there is still some swell ing. No set pain is minimal. Has a little bit of pain proximal to the patella anteriorly. She is not taking any prescribed lpzy-ztl-pwucfrw pain medication. Current level pain is r ated at 3 out of 10. She is taking ibuprofen as necessary for pain OBJECTIVE: Incision site has healed appropriately and well. No evidence of complication or infection. Mild swelling at the right knee when compared bilaterally. Very mildly tender at the dist al insertion of the quads tendon. Good range of motion of the right knee flexion and extens ion. No numbness of complication or infection. Skin is warm and dry. Imaging/Studies: No studies to review at this time. Vitals: 08/26/17 0813 Temp: 36.5 C (97.7 F) TempSrc: Temporal Weight: 49.4 kg (109 lb) Height: 1.6 m (5' 3") ASSESSMENT/PLAN: 1. Right knee hardware removal and incision site dehiscence A. patient healing appropriately and quite well. No evidence of competition or infection today. Sutures were removed from the incision site there placed by the emergency room physi alise about 2 weeks ago. Recommended that she continue to resume normal activities as tolera thao at the right knee. Continue with any ennq-pst-gzkhrxw pain medication as necessary for control of pain. Follow-up at this time will be on an as-needed basis. B. Patient is advised that if they have any questions, comments or concerns to contact our office. Electronically signed by: Vj Rutherford PA-C 08/26/2017 11:28 This note was dictated using the Nightpro voice recognition system. Minor errors in grammar may have occurred. documented in t his encounter Plan of Treatment Not on filedocumented as of this encounter Visit Diagnoses + + | Diagnosis | + + | S/P orthopedic surgery, follow-up exam - Primary Follow-up examination, following | | other surgery | + + | Dehiscence of operative wound, initial encounter | + + documented in this encounter
--- OUTSIDE RECORDS SUMMARY | ~2019-11-07 | XMS | Encounter Summary ---
Demographics + + + | Address | [address] | | | [place] [address] | + + + | Home Phone | | + + + | Preferred Language | Unknown | + + + | Marital Status | | + + + | Anabaptist Affiliation | Unknown | + + + | Race | Unknown | + + + | Ethnic Group | Unknown | + + + Author + + + | Author | [facility] | | | and [place] | + + + | Organization | [facility] | | | and [place] [...] Team Providers + +------+ + | Care Board Handler Name | Role | Phone | + +------+ + | Tomer Wills MD | PCP | | + +------+ + Encounter Details +--------+ + + + + | Date | Type | Department | Care Team | Description | +--------+ + + + + | 08/20/ | Abstract | [facility] | Lance Aguiar MD | | | 2015 | | GASTROENTEROLOGY | [address], [place] | | | | | [address] [place] | [address] [place], [place] | | | | | [address] [place], [place] | [address] | | | | | [address] | | | | | | [phone] | | | +--------+ + + + [...]
--- OUTSIDE RECORDS SUMMARY | ~2019-11-07 | XMS | Encounter Summary ---
Demographics + + + | Address | [address] | | | [place] [address] | + + + | Home Phone | | + + + | Preferred Language | Unknown | + + + | Marital Status | | + + + | Adventism Affiliation | Unknown | + + + | Race | Unknown | + + + | Ethnic Group | Unknown | + + + Author + + + | Author | [facility] | | | and [place] | + + + | Organization | [facility] | | | and [place] [...] Team Providers + +------+ + | Care Stock Analyst Name | Role | Phone | + +------+ + | Tomer Wills MD | PCP | | + +------+ + Reason for Visit + + + | Reason | Comments | + + + | Surgery Appointment | | + + + Encounter Details +--------+ + + + + | Date | Type | Department | Care Team | Description | +--------+ + + + + | 06/14/ | Telephone | [facility] | Tyler Florian | Surgery Appointment | | 2017 | | ORTHOPEDIC SURGERY | MD [address] [facility] | | | | | [address] [facility] | [place], [place] | | | | | [place], [place] | [address] | | | | | [address] | | | | | | [phone] | | | +--------+ + + + [...]
--- OUTSIDE RECORDS SUMMARY | ~2019-11-07 | XMS | Encounter Summary ---
Demographics + + + | Address | [address] | | | [place] [address] | + + + | Home Phone | | + + + | Preferred Language | Unknown | + + + | Marital Status | | + + + | Mandaen Affiliation | Unknown | + + + | Race | Unknown | + + + | Ethnic Group | Unknown | + + + Author + + + | Author | [facility] | | | and [place] | + + + | Organization | [facility] | | | and [place] | [...] Team Providers + +------+ + | Care Extruding Department Supervisor Name | Role | Phone | + +------+ + | Abiel Rocha MD | PCP | | + +------+ + Reason for Visit + + + | Reason | Comments | + + + | Follow-up | Follow Up Right Knee Hardware Modification with Partial Hardware | | | Removal DOS:02/15/2017- Pain with bending | + + + Encounter Details +--------+---------+ + + + | Date | Type | Department | Care Team | Description | +--------+---------+ + + + | 04/22/ | Office | [facility] | Tyler Wall | S/P orthopedic | | 2016 | Visit | ORTHOPEDIC SURGERY | MD Carol [address] [place] [address] | surgery, follow-up | | | | [address] [facility] | [place] | exam (Primary Dx) | | | | [place] | [address] | | | | | [address] | | | | | | [phone] | | | +--------+---------+ + + + [...] + + documented as of this encounter Progress Notes Tyler Wall MD - 04/22/2017 12:46 PM PDT [facility] ORTHOPEDIC SURGER Y [address] [facility] [address] OFFICE NOTE TYLER WALL MD Patient: JONELLE VERA Admitting: MR #: [id number] LOC: PT TYPE: Adm Date: 04/22/2017 : 1955 Jonelle returns today for a follow up of her right knee patellar fracture treated surgicall y by Dr. Parekh on 12/14. She then later underwent hardware modification that I performed on 02/15 at which time I cut one of the K wires short so that it would reduce her soft tis jen irritation. She has been receiving water therapy and making steady progress. She is r eceiving pain medication under a pain contract with her primary care physician, Dr. Machelle berrios, in [place], [place]. Today, Jonelle states that her knee is gradually improving. She has gained approximately 10 pounds. She is still having pain with flexion of the knee. EXAMINATION: The knee is examined. Her 2 incisions have healed nicely. She still has vis ible quadriceps atrophy. Her motion is approximately 0-90 degrees. She is walking with a cane with a stable gait. X-RAYS: X-rays taken 04/13/2017 are reviewed of the patient's right knee, which show that the patellar fracture appears to be healing, the hardware remains well placed. ADVICE: Jonelle continues to progress in terms of bone healing and return of function. Treva thompson would like the hardware removed, but I feel we should try to leave it in for at least 6 m onths to allow for adequate bone healing. [facility] therefore [facility] May, for new x-rays of the right knee and tentative scheduling of h ardware removal to follow. TYLER WALL MD Dictated by TYLER WALL MD 04/22/2017 12:46:14 Transcribed on 04/23/2017 05:14:47 by tristen job# [id number] Confirmation #: [id number] cc: ABIEL ROCHA MD enapoorvaon, Tyler Medina MD - 04/22/2017 11:30 AM PDTSee soap note [id number].Electron [email or web address] signed by Tyler Wall MD at 04/22/2017 12:46 PM PDTdocumented in this encoun ter Plan of Treatment Not on filedocumented as of this encounter Visit Diagnoses + + | Diagnosis | + + | S/P orthopedic surgery, follow-up exam - Primary Follow-up examination, following | | other surgery | + + documented in this encounter"
--- OUTSIDE RECORDS SUMMARY | ~2019-11-07 | XMS | Encounter Summary ---
Demographics + + + | Address | [address] | | | [place] [address] | + + + | Home Phone | | + + + | Preferred Language | Unknown | + + + | Marital Status | | + + + | Mormonism Affiliation | Unknown | + + + | Race | Unknown | + + + | Ethnic Group | Unknown | + + + Author + + + | Author | [facility] | | | and [place] | + + + | Organization | [facility] | | | and [place] [...] Team Providers + +------+ + | Care Physician Compensation Analyst Name | Role | Phone | [...] Description | +--------+---------+ + + + | 08/05/ | Office | [facility] | Vj Rutherford | S/P orthopedic | | 2017 | Visit | ORTHOPEDIC SURGERY | [address] | surgery, follow-up | | | | [address] [facility] | [facility] | exam (Primary Dx) | | | | [place] | [place] [address] | | | | | [address] | [phone] | | | | | [phone] | | | +--------+---------+ + + + [...] + + + + | Temperature | 36.2 C (97.2 F) | 08/05/2017 11:45 AM | | | | | PDT [...] Weight | 49.4 kg (109 lb) | 08/05/2017 11:45 AM | | | | | PDT | | + + + + + | Height | 160 cm (5' 3") | 08/05/2017 11:45 AM | | | | | PDT | | + + + + + | Body Mass Index | 19.31 | 08/05/2017 11:45 AM | | | | | PDT | | + + + + + documented in this encounter Progress Notes Vj Rutherford PA-C - 08/05/2017 11:45 AM PDTFormatting of this note might be differe nt from the original. Name:Lilian Reynoso Todays Date: 08/05/2017 Age: 62 y.o. PCP: Tomer Wills MD Chief Complaint Patient presents with Post Op right knee hardware removal DOS 07/14/17 SUBJECTIVE: Returns today for first postoperative visit following right knee patella hardware removal p erformed on 07/14/17. She notes that she has had minimal postoperative pain and is recovering appropriate. She is full weightbearing and engaging in activities. She does have a dull a mely at the knee. Current level of pain rated at 3 out of 10 OBJECTIVE: Incision site is healing quite well and up early. There is no evidence of competition or i nfection. Normal range of motion today at the right knee. There is no open wound, drainage , erythema, ecchymosis or signs of infection. She is a small scabbed area at the distal asp ect of the incision site that is approximately 1 mm in length but otherwise is looking quite well Imaging/Studies: No studies to review at this time. Vitals: 08/05/17 1145 Temp: 36.2 C (97.2 F) TempSrc: Temporal Weight: 49.4 kg (109 lb) Height: 1.6 m (5' 3") ASSESSMENT/PLAN: 1. Right knee hardware removal, status postop A. patient is healing appropriately and well following right knee patella hardware removal . She is has minimal postoperative pain as already returned to her normal activities. Roman mmended that she can continue with any anti-inflammatories necessary for any pain. She is f ree to increase activities as tolerated at the right knee. Follow-up will be on as-needed b asis B. Patient is advised that if they have any questions, comments or concerns to contact our office. Electronically signed by: Vj Rutherford PA-C 08/05/2017 13:42 This note was dictated using the FXTrip voice recognition system. Minor errors in grammar may have occurred. documented in t his encounter Plan of Treatment Not on filedocumented as of this encounter Visit Diagnoses + + | Diagnosis | + + | S/P orthopedic surgery, follow-up exam - Primary Follow-up examination, following | | other surgery | + + documented in this encounter
--- OUTSIDE RECORDS SUMMARY | ~2019-11-07 | XMS | Clinical Summary ---
Demographics + + + | Address | [address] | | | [place] [address] | + + + | Home Phone | | + + + | Preferred Language | Unknown | + + + | Marital Status | | + + + | Yazdanism Affiliation | Unknown | + + + | Race | Unknown | + + + | Ethnic Group | Unknown | + + + Author + + + | Author | [facility] (Historical as of | | | 06-24-19) | + + + | Organization | [facility] (Historical as of | | | 06-24-19) | + + + | Address | Unknown | + + + | Phone | Unavailable | + + + Support + + + + + | Name | Relationship | Address | Phone | + + + + + | Ricardo Vera | ECON | [address] | | | | | [place] | | | | | [address] | | + + + + + | Diony Escobar | YOLI | Unknown | | + + + + + | Barbara Velásquez | YOLI | Unknown | | + + + + + Care Team Providers + +------+ + | Care Solar Process Engineer Name | Role | Phone | [...] Antibiotics | Nausea Only | Low | 10/14/20 | | | | | | 11 | | + + + + + + Current Medications + + +-------+---------+------+------+-------+ | Prescription | Sig. | Disp. | Refills | Star | End | Statu | | | | | | t | Date | s | | | | | | Date | | | + + +-------+---------+------+------+-------+ | | Take 1 tablet by | | | | | Activ | | hydrocodone-acetamin | mouth every 6 (six) | | | | | e | | ophen (VICODIN) | hours as needed. | | | | | | | 5-500 MG per tablet | | | | | | | + + +-------+---------+------+------+-------+ | simvastatin | Take 20 mg by mouth | | | | | Activ | | (ZOCOR) 20 MG tablet | nightly. | | | | | e | + + +-------+---------+------+------+-------+ | metoprolol | Take 12.5 mg by | | | | | Activ | | (LOPRESSOR) 25 MG | mouth 2 (two) times | | | | | e | | tablet | daily. | | | | | | + + +-------+---------+------+------+-------+ | zolpidem (AMBIEN | Take 6.25 mg by | | | | | Activ | | CR) 12.5 MG CR | mouth nightly as | | | | | e | | tablet | needed. | | | | | | + + +-------+---------+------+------+-------+ | diazepam (VALIUM) | Take 5 mg by mouth | | | | | Activ | | 5 MG tablet | every 6 (six) hours | | | | | e | | | as needed. | | | | | | + + +-------+---------+------+------+-------+ Active Problems + + + | Problem | Noted Date | + + + | Lumbar Radiculitis | 10/14/2011 | + + + + + | Last Assessment & Plan: This patient has MRI documented | | lumbar degenerative disc disease, lumbar spondylolisthesis with | | anterolisthesis of L4 on L5, lumbar facet arthropathy and lumbar | | spinal stenosis. She has left lower extremity radicular pain | | which previously has responded well to epidural steroid | | injections. Left L4 and left L5 transforaminal epidural steroid | | injections were last performed 09-23-12. This provided greater | | than 80% relief for more than 6 months. Her pain has been slowly | | returning and she is here requesting repeat epidural steroid | | injections. I will again plan on performing left L4 and left L5 | | transforaminal lumbar epidural steroid injections under | | fluoroscopic guidance.Plan, alternatives, risks and potential | | benefits of the procedure were explained to the patient in great | | detail. The patient understands that there is no guarantee they | | will get pain relief with this procedure. They also understand | | that if they do get pain relief that there is no way to know how | | long it will last. They also understand there is procedure | | itself which include but are not limited to infection, abscess, | | hematoma, nerve damage, paraplegia or quadriplegia, increased | | pain, spinal headache, stroke, and side effects from the | | medications themselves. The patient wishes to proceed. | + + + + + | Herniated Nucleus Pulposa-Lumbar | 10/14/2011 | + + + + + | Last Assessment & Plan: Please see discussion under lumbar | | radiculitis. | + + + + + | Lumbar Degenerative Disc Disease | 10/14/2011 | + + + + + | Last Assessment & Plan: Please see discussion under lumbar | | radiculitis. | + + + + + | Spondylolisthesis | 10/14/2011 | + + + + + | Last Assessment & Plan: Please see discussion under lumbar | | radiculitis. | + + + + + | Spinal stenosis, lumbar region, without neurogenic claudication | 10/14/2011 | + + + + + | Last Assessment & Plan: Please see discussion under lumbar | | radiculitis. | + + + + + | Facet Syndrome-Lumbar | 10/14/2011 | + + + + + | Last Assessment & Plan: Please see discussion under lumbar | | radiculitis. | + + Family History + + +------+ + | Medical History | Relation | Name | Comments | + + +------+ + | Diabetes type II | Mother | | | + + +------+ + | Hypertension | Mother | | | + + +------+ + | Stroke | Mother | | | + + +------+ + + +------+--------+ + | Relation | Name | Status | Comments | + +------+--------+ + | Mother | | | | + +------+--------+ + Social History + +-------+ +--------+------+ | [...] + + +---------+ + | No | | | | + + +---------+ + + + + | Sex Assigned at | Date Recorded | | | | + + + | Not on file | | + + + Last Filed Vital Signs + + + + | Vital Sign | Reading | Time Taken | + + + + | Blood Pressure | 124/70 | 09/11/2013 11:38 AM PST | + + + + | Pulse | 57 | 09/11/2013 11:38 AM PST | + + + + | Temperature | - | - | + + + + | Respiratory Rate | - | - | + + + + | Oxygen Saturation | 100% | 09/11/2013 11:38 AM PST | + + + + | Inhaled Oxygen | - | - | | Concentration | | | + + + + | Weight | 51.3 kg (113 lb) | 09/11/2013 11:38 AM PST | + + + + | Height | 160 cm (5' 3") | 09/11/2013 11:38 AM PST | + + + + | Body Mass Index | 20.02 | 09/11/2013 11:38 AM PST | + + + + Plan of Treatment + + + + + | Health Maintenance | Due Date | Last Done | Comments | + + + + + | Vaccine: | | | | | Dtap/Tdap/Td (1 - | 4 | | | | Tdap) | | | | + + + + + | Cervical Cancer | | | | | Screening (Pap) | 5 | | | + + + + + | Vaccine: Zoster (1 | | | | | of 2) | 5 | | | + + + + + | Vaccine: Influenza | | | | | (#1) | 9 | | | + + + + + Results Not on filefrom Last 3 Months Insurance + +--------+ +------+-------+ + | Payer | Benefi | Subscriber | Type | Phone | Address | | | t Plan | ID | | | | | | / | | | | | | | Group | | | | | + +--------+ +------+-------+ + | [employer] | PREMER | [id number] | | | [address] [address] | | | A | 2 | | | [place] | | | [place] | | | | [phone] | | | [place] | | | | | | | [place] | | | | | + +--------+ +------+-------+ + | [employer] | [employer]-NET | [id number] | | | | | | WORK | | | | | + +--------+ +------+-------+ + + +--------+ +--------+ + + | Guarantor Name | Accoun | Relation to | Date | Phone | Billing Address | | | t Type | Patient | of | | | | | | | | | | + +--------+ +--------+ + + | LILAIN VERA | Person | Self [birth year] Home: | [address] | | | al/Fam | | 1955 | [phone] [place] [address] | | | vivien | | | [phone] | | + +--------+ +--------+ + +
--- OUTSIDE RECORDS SUMMARY | ~2019-11-07 | XMS | Encounter Summary ---
Demographics + + + | Address | [address] | | | [place] [address] | + + + | Home Phone | | + + + | Preferred Language | Unknown | + + + | Marital Status | | + + + | Jewish Affiliation | Unknown | + + + | Race | Unknown | + + + | Ethnic Group | Unknown | + + + Author + + + | Author | [facility] | | | and [place] | + + + | Organization | [facility] | | | and [place] [...] Team Providers + +------+ + | Care Industrial Hygiene Engineer Name | Role | Phone | + +------+ + | Tomer Wills MD | PCP | | + +------+ + Encounter Details +--------+ + + + + | Date | Type | Department | Care Team | Description | +--------+ + + + + | 06/03/ | Episode | [facility] [place] | Pattie Murcia, | | | 2016 | Changes | ORTHOPEDIC SURGERY | Door Worker | | | | | [address] [place] [address] | | | | | | [place] | | | | | | [address] | | | | | | [phone] | | | +--------+ + + + [...]
--- OUTSIDE RECORDS SUMMARY | ~2019-11-07 | XMS | Encounter Summary ---
Demographics + + + | Address | [address] | | | [place] [address] | + + + | Home Phone | | + + + | Preferred Language | Unknown | + + + | Marital Status | | + + + | Restorationist Affiliation | Unknown | + + + | Race | Unknown | + + + | Ethnic Group | Unknown | + + + Author + + + | Author | [facility] | | | and [place] | + + + | Organization | [facility] | | | and [place] [...] Team Providers + +------+ + | Care Program Technician Name | Role | Phone | + +------+ + | Tomer Wills MD | PCP | | + +------+ + Reason for Visit + + + | Reason | Comments | + + + | GI Problem | | + + + Encounter Details +--------+ + + + + | Date | Type | Department | Care Team | Description | +--------+ + + + + | 02/25/ | Telephone | [facility] | Lance Aguiar MD | GI Problem | | 2016 | | GASTROENTEROLOGY | [address] [place] | | | | | [address] [facility] | [address] [place] | | | | | [address] [place], [place] | [address] | | | | | [address] | | | | | | [phone] | | | +--------+ + + + [...]
--- OUTSIDE RECORDS SUMMARY | ~2019-11-07 | XMS | Encounter Summary ---
Demographics + + + | Address | [address] | | | [place] [address] | + + + | Home Phone | | + + + | Preferred Language | Unknown | + + + | Marital Status | | + + + | Buddhism Affiliation | Unknown | + + + | Race | Unknown | + + + | Ethnic Group | Unknown | + + + Author + + + | Author | [facility] | | | and [place] | + + + | Organization | [facility] | | | and [place] [...] Team Providers + +------+ + | Care Business Planning Director Name | Role | Phone | [...] | | | | | | | ID REMOVAL | | | | | | | DEEP IMPLANT | | | | | | | Right Knee | | | | | | | Hardware | | | | | | | Removal (s/p | | | | | | | [employer] | | | +--------+--------+ + + + + Encounter Details +--------+ + + + + | Date | Type | Department | Care Team | Description | +--------+ + + + + | 07/14/ | Anesthesia | [facility] | John Isaac MD | | | 2017 | Event | [facility] | [address] | | | | | [address] | [place], [place] | | | | | [place], [place] | [address] | | | | | [address] | [phone] | | | | | [phone] | | | | | | | Cliff Mortensen, | | | | | | [address] | | | | | | [place], [place] | | | | | | [address] | | | | | | [phone] | | | | | | | | +--------+ + + + + Anesthesia Record + + + + + | Procedure Name | Responsible | Anesthesia Start | Anesthesia Stop Time | | | Anesthesiologist | Time | | + + + + + | Right Knee Hardware | John Isaac MD | 09/04/24 830 | 07/14/17 0934 | | Removal (s/p | | | | | [employer] (Right Leg | | | | | Lower) | | | | + + + + + +----+---+ + + | Da | T | Event | Comment | | te | i | | | | | m | | | | | e | | | +----+---+ + + | 09 | 0 | An Checkout | Pre-use anesthesia machine/equipment checkout. | | /0 | 8 | | | | 6/ | 2 | | | | 20 | 9 | | | | 17 | | | | +----+---+ + + | | 0 | | | | | 8 | | | | | 3 | | | | | 0 | | | +----+---+ + + | | 0 | An Start | Reassessment prior to anesthesia induction/procedure. | | | 8 | | | | | 3 | | | | | 0 | | | +----+---+ + + | | 0 | Preoxygenat | | | | 8 | ed | | | | 3 | | | | | 4 | | | +----+---+ + + | | 0 | An | | | | 8 | Induction | | | | 3 | | | | | 5 | | | +----+---+ + + | | 0 | An | | | | 8 | Intubation | | | | 3 | | | | | 6 | | | +----+---+ + + | | 0 | [place] | | | | 8 | 43-degrees | | | | 4 | | | | | 2 | | | +----+---+ + + | | 0 | an nabila now | Poor ventilation with LMA and lots of coughing. LMA removed, | | | 8 | | oral suction and replaced; much better air movement. | | | 4 | | | | | 3 | | | +----+---+ + + | | 0 | Antibiotic | | | | 8 | Given | | | | 4 | | | | | 6 | | | +----+---+ + + | | 0 | Pre-Procedu | | | | 8 | ral Timeout | | | | 4 | Completed | | | | 7 | | | +----+---+ + + | | 0 | First | | | | 8 | Inc/Proc St | | | | 4 | | | | | 8 | | | +----+---+ + + | | 0 | An Tourn | 300 torr | | | 8 | Inflated | | | | 5 | | | | | 0 | | | +----+---+ + + | | 0 | An Tourn | | | | 9 | Deflated | | | | 0 | | | | | 9 | | | +----+---+ + + | | 0 | [place] off | | | | 9 | | | | | 2 | | | | | 4 | | | +----+---+ + + | | 0 | Extubated | | | | 9 | Awake | | | | 2 | | | | | 6 | | | +----+---+ + + | | 0 | an stop | | | | 9 | data | | | | 2 | | | | | 7 | | | +----+---+ + + | | 0 | An Stop | Patient handed off to recovery nurse. | | | 3 | | | | | 4 | | | +----+---+ + + +------+ | Meds | +------+ + +---------+ | Name | Total | + +---------+ | midazolam | 2 mg | + +---------+ | fentaNYL | 105 mcg | + +---------+ | lidocaine 2% | 80 mg | + +---------+ | propofol (DIPRIVAN) injection | 130 mg | | (bolus) (20 mL) | | + +---------+ | ceFAZolin in saline (ANCEF) IVPB | 2 g | | 2 g | | + +---------+ | LR (Infusion) | 925 mL | + +---------+ + + | Name | + + | N2O Flow Rate (L/Min) | + + | O2 Flow Rate (L/Min) | + + | Insp O2 | + + | Exp SEV | + + | Air Flow Rate (L/Min) | + + + + | No blood administrations on file. | + + +--------+ + + + | Type | Details | Placement | Removal | +--------+ + + + | Perine | 12/15/16; 124 (created via | 12/15/16 1246 by | 07/14/17905 by | | ural | procedure documentation); Right:; | John Munoz | John Munoz | | | 07/14/17; 905 | MD BERYL | MD BERYL | +--------+ + + + | Periph | 07/14/17; 0757; Right; | 07/14/17 0757 by | 07/14/17 1145 by | | eral | Antecubital; [id number] | Yesenia Jackman, | Loida Sanchez RN | | IV | catheter system; 20 gauge, 1 11/11 | RN | | | | in length; distraction, | | | | | intradermal injection; no longer | | | | | indicated, removed per | | | | | policy/procedure, catheter/device | | | | | intact; healing within | | | | | expectations; 07/14/17; 1145 | | | +--------+ + + + | Read | 07/14/17; 0835; Right; leg; | 07/14/17 0835 by | 01/31/19 1342 by | | only - | 01/31/19 (Completed/Removed by | Philip Samuels RN | User Epic | | | Utility); 1342 (Completed/Removed | | | | Incisi | by Utility) | | | | on | | | | +--------+ + + + | Airway | Placement Date: 07/14/17; | 07/14/17835 by | 07/14/17926 by | | | Placement Time: 835; Mask | John Isaac MD | John Isaac MD | | | Ventilation: EZ; Airway Type: | | | | | laryngeal mask, oral, cuffed, | | | | | non-disposable; Size: 3; Tube | | | | | Reference Point: secure and | | | | | patent; Trauma: none; Placement | | | | | Check: exhaled CO2 detection | | | | | device; Removal Date: 07/14/17; | | | | | Removal Time: 926 | | | +--------+ + + + documented in this encounter Social History + +-------+ +--------+------+ | Tobacco [...] filedocumented in this encounter Administered Medications + +--------+ +------+------+------+ | Medication Order | MAR | Action | Dose | Rate | Site | | | Action | Date | | | | + +--------+ +------+------+------+ | ceFAZolin in saline (ANCEF) | Given | 07/14/20 | 2 g | | | | IVPB 2 g 2 g, Intravenous, | | 17 8:46 | | | | | Administer over 30 Minutes, Prior | | AM PDT | | | | | to Incision, Starting 07/14/17 | | | | | | | at 0802, For 1 dose, Give within | | | | | | | one hour prior to incision. Keep | | | | | | | in refrigerator., Pre-op, | | | | | | | Indications: Surgical Prophylaxis | | | | | | + +--------+ +------+------+------+ +---+---+ | | | +---+---+ + +-------+ +--------+---+---+ | fentaNYL (PF) injection | Given | 07/14/20 | 20 mcg | | | | Intravenous, PRN, Pain, Starting | | 17 9:01 | | | | | 07/14/17 at 0831, Anesthesia | | AM PDT | | | | | Intra-op | | | | | | + +-------+ +--------+---+---+ +-------+ +--------+---+---+ | Given | 07/14/20 | 25 mcg | | | | | 17 8:52 | | | | | | AM PDT | | | | +-------+ +--------+---+---+ | Given | 07/14/20 | 25 mcg | | | | | 17 8:35 | | | | | | AM PDT | | | | +-------+ +--------+---+---+ +---+---+ | | | +---+---+ + +---------+ +---+---+---+ | lactated ringers (LR) infusion | New Bag | 07/14/20 | | | | | Intravenous, CONTINUOUS PRN, | | 17 8:04 | | | | | Starting 07/14/17 at 0804, | | AM PDT | | | | | Anesthesia Intra-op | | | | | | + +---------+ +---+---+---+ +---+---+ | | | +---+---+ + +-------+ +-------+---+---+ | lidocaine (PF) 2% injection | Given | 07/14/20 | 80 mg | | | | Intravenous, PRN, Starting Wed | | 17 8:35 | | | | | 07/14/17 at 0835, Anesthesia | | AM PDT | | | | | Intra-op | | | | | | + +-------+ +-------+---+---+ +---+---+ | | | +---+---+ + +-------+ +------+---+---+ | midazolam (VERSED) 1 mg/mL | Given | 07/14/20 | 2 mg | | | | injection Intravenous, PRN, | | 17 8:31 | | | | | Anxiety, Starting Wed07/14/17 at | | AM PDT | | | | | 0831, Anesthesia Intra-op | | | | | | + +-------+ +------+---+---+ +---+---+ | | | +---+---+ + +-------+ +-------+---+---+ | propofol (DIPRIVAN) injection | Given | 07/14/20 | 40 mg | | | | Intravenous, PRN, Starting Wed | | 17 8:42 | | | | | 07/14/17 at 0835, Anesthesia | | AM PDT | | | | | Intra-op | | | | | | + +-------+ +-------+---+---+ +-------+ +-------+---+---+ | Given | 07/14/20 | 90 mg | | | | | 17 8:35 | | | | | | AM PDT | | | | +-------+ +-------+---+---+ +---+---+ | | | +---+---+ documented in this encounter"
--- OUTSIDE RECORDS SUMMARY | ~2019-11-07 | XMS | Encounter Summary ---
Demographics + + + | Address | [address] | | | [place] [address] | + + + | Home Phone | | + + + | Preferred Language | Unknown | + + + | Marital Status | | + + + | Bahai Affiliation | Unknown | + + + | Race | Unknown | + + + | Ethnic Group | Unknown | + + + Author + + + | Author | [facility] | | | and [place] | + + + | Organization | [facility] | | | and [place] [...] Team Providers + +------+ + | Care Lump Receiver Name | Role | Phone | + +------+ + PCP | Unavailable | + +------+ + Encounter Details +--------+ + + + + | Date | Type | Department | Care Team | Description | +--------+ + + + + | 07/21/ | Abstract | [place] [facility] | [facility] | | | 2011 | | Conversion Location | SR | | | | | [phone] | | | +--------+ + + + [...] + + + | Blood Pressure | 80/52 | 10/23/2010 12:00 AM | | | | | PST | | + + + + + | Pulse | - | - | | + + + + + | Temperature | - | - | | + + + + + | Respiratory Rate | - | - | | + + + + + | Oxygen Saturation | - | - | | + + + + + | Inhaled Oxygen | - | - | | | Concentration | | | | + + + + + | Weight | 52.6 kg (116 lb) | 10/23/2010 12:00 AM | | | | | PST | | + + + + + | Height | 160 cm (5' 3") | 08/05/2010 12:00 AM | | | | | PDT | | + + + + + | Body Mass Index | 20.55 | 08/05/2010 12:00 AM | | | | | PDT | | + + + + + documented in this encounter Plan of Treatment Not on filedocumented as of this encounter Procedures + +--------+ + + + | Procedure Name | Priori | Date/Time | Associated Diagnosis | Comments | | | ty | | | | + +--------+ + + + | ENDOSCOPY, COLON, | Routin | 06/28/2007 | | Results for this | | DIAGNOSTIC | e | 12:00 AM | | procedure are in the | | | | PDT | | results section. | + +--------+ + + + documented in this encounter Results ENDOSCOPY, COLON, DIAGNOSTIC (06/28/2007 12:00 AM PDT) + + | Specimen | + + | | + + + + + | Narrative | Performed At | + + + | | | + + + documented in this encounter Visit Diagnoses Not on filedocumented in this encounter
--- OUTSIDE RECORDS SUMMARY | ~2019-11-07 | XMS | Encounter Summary ---
Demographics + + + | Address | [address] | | | [place] [address] | + + + | Home Phone | | + + + | Preferred Language | Unknown | + + + | Marital Status | | + + + | Restorationism Affiliation | Unknown | + + + | Race | Unknown | + + + | Ethnic Group | Unknown | + + + Author + + + | Author | [facility] | | | and [place] | + + + | Organization | [facility] | | | and [place] [...] Team Providers + +------+ + | Care Conformal Pad Former Name | Role | Phone | + +------+ + | Tomer Wills MD | PCP | | + +------+ + Reason for Visit + + + | Reason | Comments | + + + | Appointment | | + + + Encounter Details +--------+ + + + + | Date | Type | Department | Care Team | Description | +--------+ + + + + | 09/16/ | Telephone | [facility] | Lance Aguiar MD | Appointment | | 2015 | | GASTROENTEROLOGY | [address] [place] | | | | | [address] [facility] | [address] [place] | | | | | [address] [place], [place] | [address] | | | | | [address] | | | | | | [phone] | | | +--------+ + + + [...]
--- OUTSIDE RECORDS SUMMARY | ~2019-11-07 | XMS | Encounter Summary ---
Demographics + + + | Address | [address] | | | [place] [address] | + + + | Home Phone | | + + + | Preferred Language | Unknown | + + + | Marital Status | | + + + | Jew Affiliation | Unknown | + + + | Race | Unknown | + + + | Ethnic Group | Unknown | + + + Author + + + | Author | [facility] | | | and [place] | + + + | Organization | [facility] | | | [...] Team Providers + +------+ + | Care Dinkey Mechanic Name | Role | Phone | + [...] (s/p | | | | [address] | [place] | [employer] | | | | [place], [place] | [address] | | | | | [address] | | | | | | [phone] | | | +--------+---------+ + + + [...] You can't be awakened Date Last Reviewed: 08/25/201619996803-1525 [employer]. [address] [place] [address], [place] [address]. All righ ts reserved. This information is [...] mg of acetaminophen (Tylenol) per day. Hydrocodone-acetaminophen (Anson ) and Oxycodone-acetaminophen (Percocet) have 325 mg [...]
--- OUTSIDE RECORDS SUMMARY | ~2019-11-07 | XMS | Encounter Summary ---
Demographics + + + | Address | [address] | | | [place] [address] | + + + | Home Phone | | + + + | Preferred Language | Unknown | + + + | Marital Status | | + + + | Scientology Affiliation | Unknown | + + + | Race | Unknown | + + + | Ethnic Group | Unknown | + + + Author + + + | Author | [facility] | | | and [place] | + + + | Organization | [facility] | | | and [place] [...] Team Providers + +------+ + | Care Guard Entrance Registrar Name | Role | Phone | + [...] + + | 09/16/ | Telephone | [facility] | Lance Aguiar MD | Appointment | | 2015 | | GASTROENTEROLOGY | [address] [place] | | | | | [address] [facility] | [address] | | | | | [address] [place], [place] | [address] | | | | | [address] | | | | | | [phone] | | | +--------+ + + + [...]
--- OUTSIDE RECORDS SUMMARY | ~2019-11-07 | XMS | Encounter Summary ---
Demographics + + + | Address | [address] | | | [place] [address] | + + + | Home Phone | | + + + | Preferred Language | Unknown | + + + | Marital Status | | + + + | Anglican Affiliation | Unknown | + + + | Race | Unknown | + + + | Ethnic Group | Unknown | + + + Author + + + | Author | [facility] | | | and [place] | + + + | Organization | [facility] | | | and [place] | [...] | +--------+ + + + + | 04/13/ | Telephone | [facility] | Tyler Florian | Appointment | | 2016 | | ORTHOPEDIC SURGERY | MD Carol [address] [place] [address] | | | | | [address] | [place] | | | | | [place] | [address] | | | | | [address] | | | | | | [phone] | | | +--------+ + + + [...]
--- OUTSIDE RECORDS SUMMARY | ~2019-11-07 | XMS | Encounter Summary ---
Demographics + + + | Address | [address] | | | [place] [address] | + + + | Home Phone | | + + + | Preferred Language | Unknown | + + + | Marital Status | | + + + | Quaker Affiliation | Unknown | + + + | Race | Unknown | + + + | Ethnic Group | Unknown | + + + Author + + + | Author | [facility] | | | and [place] | + + + | Organization | [facility] | | | and [place] [...] Team Providers + +------+ + | Care Teaseler Name | Role | Phone | + +------+ + | Tomer Wills MD | PCP | | + +------+ + Reason for Visit + + + | Reason | Comments | + + + | Pre-op Exam | Right Knee hardware removal | + + + Encounter Details +--------+---------+ + + + | Date | Type | Department | Care Team | Description | +--------+---------+ + + + | 07/06/ | Office | [facility] | Tyler Florian | SOB (shortness of | | 2016 | Visit | ORTHOPEDIC SURGERY | MD [place] [address] | breath) on exertion | | | | [address] | [place] | (Primary Dx); | | | | [place], [place] | [address] | Secondary | | | | [address] | | hypertension; | | | | [phone] | | Hyperlipidemia, | | | | | | unspecified | | | | | | hyperlipidemia type; | | | | | | Preop testing; | | | | | | Dyspnea on exertion; | | | | | | Right knee pain, | | | | | | unspecified | | | | | | chronicity; S/P ORIF | | | | | | (open reduction | | | | | | internal fixation) | | | | | | fracture; S/P | | | | | | orthopedic surgery, | | | | | | follow-up exam; Pain | | | | | | from implanted | | | | | | hardware, subsequent | | | | | | encounter | +--------+---------+ + + + Social [...] + + + | Blood Pressure | 128/58 | 07/06/2017 11:40 AM | | | | | PDT | | + + + + + | Pulse | 62 | 07/06/2017 11:40 AM | | | | | PDT | | + + + + + | Temperature | 36.8 C (98.3 F) | 07/06/2017 11:40 AM | | | | | PDT | | + + + + + | Respiratory Rate | 20 | 07/06/2017 11:40 AM | | | | | PDT | | + + + + + | Oxygen Saturation | 99% | 07/06/2017 11:40 AM | | | | | PDT | | + + + + + | Inhaled Oxygen | - | - | | | Concentration | | | | + + + + + | Weight | 49 kg (108 lb) | 07/06/2017 11:40 AM | | | | | PDT | | + + + + + | Height | 160 cm (5' 3") | 07/06/2017 11:40 AM | | | | | PDT | | + + + + + | Body Mass Index | 19.13 | 07/06/2017 11:40 AM | | | | | PDT | | + + + + + documented in this encounter Plan of Treatment Not on filedocumented as of this encounter Procedures + +--------+ + + + | Procedure Name | Priori | Date/Time | Associated Diagnosis | Comments | | | ty | | | | + +--------+ + + + | ECG 12 LEAD | Routin | 07/06/2017 | SOB (shortness of | Results for this | | | e | 12:31 PM | breath) on exertion | procedure are in the | | | | PDT | Secondary | results section. | | | | | hypertension | | | | | | Hyperlipidemia, | | | | | | unspecified | | | | | | hyperlipidemia type | | | | | | Preop testing | | | | | | Dyspnea on exertion | | | | | | Right knee pain, | | | | | | unspecified | | | | | | chronicity S/P ORIF | | | | | | (open reduction | | | | | | internal fixation) | | | | | | fracture S/P | | | | | | orthopedic surgery, | | | | | | follow-up exam | | + +--------+ + + + documented in this encounter Results XR Chest PA and Lateral (07/06/2017 1:08 PM PDT) + + | Specimen | + + | | + + + + + | Narrative | Performed At | + + + | CLINICAL INFORMATION: shortness of breath on exertion. | [facility] | | COMPARISON: None available. FINDINGS: Frontal and lateral views | [facility] | | of the chest. Lungs: No focal airspace disease, pleural effusion, | [facility] | | or pneumothorax. Heart: Cardiac silhouette is of normal size. | - IMAGING | | Mediastinum: Central pulmonary vasculature has a normal appearance. | | | IMPRESSION - Normal 2 view chest. Dictated and Signed by: | | | Cory Valera MD Electronically signed: 07/06/2017 2:03 PM | | + + + + + | Procedure Note | + + | Ramana, Rad Results In - 07/06/2017 2:06 PM PDT CLINICAL INFORMATION: shortness of | | breath on exertion.COMPARISON: None available.FINDINGS: Frontal and lateral views of the | | chest. Lungs: No focal airspace disease, pleural effusion, or pneumothorax. Heart: | | Cardiac silhouette is of normal size.Mediastinum: Central pulmonary vasculature has a | | normal appearance.IMPRESSION - Normal 2 view chest.Dictated and Signed by: Cory | | MD Soto Electronically signed: 07/06/2017 2:03 PM | | | |Lungs: No focal airspace disease, pleural effusion, or pneumothorax. | | | |Heart: Cardiac silhouette is of normal size. | | | |Mediastinum: Central pulmonary vasculature has a normal appearance. | | | | | |IMPRESSION - Normal 2 view chest. | | | |Dictated and Signed by: Cory Valera MD | | Electronically signed: 07/06/2017 2:03 PM | + + + + + + + | Performing | Address | City/State/Zipcode | Phone Number | | Organization | | | | + + + + + | [facility] | [address] | [place], [place] | [phone] | | [facility] | | [address] | | | - IMAGING | | | | + + + + + Hemoglobin (07/06/2017 12:53 PM PDT) + +-------+ + + + | Component | Value | Ref Range | Performed | Pathologist | | | | | At | Signature | + +-------+ + + + | Hemoglobin | 13.4 | 11.5 - 16.0 | [facility] | | | | | g/dL | [facility] | | | | | | MEDICAL | | | | | | CENTER - | | | | | | LABORATORY | | + +-------+ + + + + + | Specimen | + + | Blood | + + + + + + + | Performing | Address | City/State/Zipcode | Phone Number | | Organization | | | | + + + + + | [facility] | [address] | [place] | [phone] | | [facility] | | [address] | | | - LABORATORY | | | | + + + + + ECG 12 lead (07/06/2017 12:31 PM PDT) + + + + + + | Component | Value | Ref Range | Performed | Pathologist | | | | | At | Signature | + + + + + + | VENTRICULAR | 68 | BPM | [facility] | | | RATE EKG | | | | | + + + + + + | ATRIAL RATE | 68 | BPM | [facility] | | + + + + + + | P-R | 172 | ms | [facility] | | | INTERVAL | | | | | + + + + + + | QRS | 74 | ms | [facility] | | | DURATION | | | | | + + + + + + | Q-T | 418 | ms | [facility] | | | INTERVAL | | | | | + + + + + + | Q-T | 444 | ms | [facility] | | | INTERVAL | | | | | | (CORRECTED) | | | | | + + + + + + | P WAVE AXIS | 74 | degrees | [facility] | | + + + + + + | QRS AXIS | 25 | degrees | [facility] | | + + + + + + | T AXIS | 29 | degrees | [facility] | | + + + + + + | INTERPRETAT | Normal sinus | | [facility] | | | ION TEXT | rhythmSeptal infarct , | | | | | | age undeterminedAbnormal | | | | | | ECGNo previous ECGs | | | | | | availableConfirmed by | | | | | | MAURICE HUERTA MD ([id number]) | | | | | | on 07/08/2017 8:35:10 AM | | | | + + + + + + + + | Specimen | + + | | + + + + + | Narrative | Performed At | + + + | | | + + + + +---------+ + + | Performing | Address | City/State/Zipcode | Phone Number | | Organization | | | | + +---------+ + + | [facility] | | | | + +---------+ + + documented in this encounter Visit Diagnoses + + | Diagnosis | + + | SOB (shortness of breath) on exertion - Primary Shortness of breath | + + | Secondary hypertension Other secondary hypertension, unspecified | + + | Hyperlipidemia, unspecified hyperlipidemia type | + + | Preop testing Preoperative examination, unspecified | + + | Dyspnea on exertion Other dyspnea and respiratory abnormality | + + | Right knee pain, unspecified chronicity | + + | S/P ORIF (open reduction internal fixation) fracture | + + | S/P orthopedic surgery, follow-up exam Follow-up examination, following other surgery | + + | Pain from implanted hardware, subsequent encounter | + + documented in this encounter
--- OUTSIDE RECORDS SUMMARY | ~2019-11-07 | XMS | Encounter Summary ---
Demographics + + + | Address | [address] | | | [place] [address] | + + + | Home Phone | | + + + | Preferred Language | Unknown | + + + | Marital Status | | + + + | Baptist Affiliation | Unknown | + + + | Race | Unknown | + + + | Ethnic Group | Unknown | + + + Author + + + | Author | [facility] | | | and [place] | + + + | Organization | [facility] | | | and [place] [...] Team Providers + +------+ + | Care Veterinary Virus Serum Inspector Name | Role | Phone | + +------+ + | Tomer Wills MD | PCP | | + +------+ + Reason for Visit + + + | Reason | Comments | + + + | Knee Pain | | + + + Encounter Details +--------+ + + + + | Date | Type | Department | Care Team | Description | +--------+ + + + + | 02/15/ | Emergency | [facility] | [place], | Closed displaced | | 2017 | | MED CTR OR [facility] OP | John Vazquez MD [address] | fracture of right | | | | [address] | [address] [place] | patella with routine | | | | [place], [place] | [place] [address] | healing, | | | | [address] | [phone] | unspecified fracture | | | | [phone] | | morphology, | | | | | Tyler Florian | subsequent encounter | | | | | MD Carol [address] | (Primary Dx); | | | | | [place] | Encounter for | | | | | [id number] | Jamila wire | | | | | | change, checking, or | | | | | | removal; Pain from | | | | | | implanted hardware, | | | | | | initial encounter | +--------+ + + + + Social [...] + + + | Blood Pressure | 139/76 | 02/15/2017 5:00 PM | | | | | PDT | | + + + + + | Pulse | 64 | 02/15/2017 5:00 PM | | | | | PDT | | + + + + + | Temperature | 36.5 C (97.7 F) | 02/15/2017 3:18 PM | | | | | PDT | | + + + + + | Respiratory Rate | 16 | 02/15/2017 5:00 PM | | | | | PDT | | + + + + + | Oxygen Saturation | 99% | 02/15/2017 5:00 PM | | | | | PDT | | + + + + + | Inhaled Oxygen | - | - | | | Concentration | | | | + + + + + | Weight | - | - | | + + + + + | Height | - | - | | + + + + + | Body Mass Index | - | - | | + + + + + documented in this encounter Discharge Instructions Instructions Vj Rutherford PA-C - 02/15/2017Keep appointment with Dr. Hogan who p erformed ORIF of your patella in December. Follow up in our office as scheduled Keep bandages clean and dry Keep bandages in place at right knee x 5 days. You can then remove bandages. Incision site can then get wet in shower. Sutures will be removed at first post operative visit. I provided you will a short term prescription of pain medication; take this only as directe d. Continue with regularly prescribed pain medications thereafter. Continue with light activities at tolerated at right knee. Do not exceed 4,000 mg of acetaminophen (Tylenol) per day. Hydrocodone-acetaminophen ([place] ) and Oxycodone-acetaminophen (Percocet) have 325 mg [...] mg by mouth | | 0 | 01/29/20 | | | 5 mg tablet | [...] tablet by | 2 | 0 | 08/24/20 | | | (ZOFRAN) 4 mg tablet [...] other | | | | | | (FLINSTONES GUMMIES | day. | | | | [...] + +---------+ + + | estradiol | Place 1 patch onto | | 0 | 01/20/20 | | | (VIVELLE-DOT) 0.0375 | the skin Twice a | | | 17 | 7 | | MG/24HR | week. | | | | | + + + +---------+ + + | gabapentin | Take 100 mg by mouth | | 0 | | | | (NEURONTIN) 100 mg | 2 times daily. And | | | | 7 | | capsule | 3 capsules at | | | | | | | bedtime as needed | | | | | + + + +---------+ + + | | Take 1 tablet by | | 0 | 02/14/20 | | | HYDROcodone-acetamin | mouth every 6 hours | | | 17 | 7 | | ophen (NORCO) 5-325 | as needed for Pain. | | | | | | mg per tablet | | | | | | + + + +---------+ + + | | Take 1 tablet by | 40 | 0 | 02/16/20 | | | HYDROcodone-acetamin | mouth EVERY 4 TO 6 | tablet | | 17 | 7 | | ophen (NORCO) | HOURS NEEDED for | | | | | | 7.5-325 mg per | Pain. | | | | | | tablet | | | | | | + + + +---------+ + + | metoprolol | Take 12.5 mg by | | 0 | 01/03/20 | | | tartrate (LOPRESSOR) | mouth 2 times daily. | | | 17 | 7 | | 25 mg tablet | | [...] + + | REMOVE HARDWARE | | 02/15/2017 | Knee pain | | | LOWER EXTREMITY | | 2:25 PM | | | | | | PDT | | | + +--------+ + + + | XR KNEE RIGHT 1 - 2 | Routin | 02/13/2017 | | Results for this | | VW | e | 12:25 PM | | procedure are in the | | | | PDT | | results section. | + +--------+ + + + | XR KNEE RIGHT 3 VW | Routin | 12/10/2016 | | Results for this | | | e | 2:00 PM | | procedure are in the | | | | PST | | results section. | + +--------+ + + + documented in this encounter Results XR Knee Right 1 - 2 Vw (02/13/2017 12:25 PM PDT) + + | Specimen | + + | | + + + + + | Narrative | Performed At | + + + | External films for comparison only - no result from [place]. | [facility] | + + + + +---------+ + + | Performing | Address | City/State/Zipcode | Phone Number | | Organization | | | | + +---------+ + + | [facility] | | | | + +---------+ + + XR Knee Right 3 Vw (12/10/2016 2:00 PM PST) + + | Specimen | + + | | + + + + + | Narrative | Performed At | + + + | External films for comparison only - no result from [place]. | [facility] | + + + + +---------+ + + | Performing | Address | City/State/Zipcode | Phone Number | | Organization | | | | + +---------+ + + | [facility] | | | | + +---------+ + + documented in this encounter Visit Diagnoses + + | Diagnosis | + + | Closed displaced fracture of right patella with routine healing, unspecified fracture | | morphology, subsequent encounter - Primary | + + | Encounter for Jamila wire change, checking, or removal Other orthopedic aftercare | + + | Pain from implanted hardware, initial encounter | + + documented in this encounter Administered Medications + +--------+ +--------+------+------+ | Medication Order | MAR | Action | Dose | Rate | Site | | | Action | Date | | | | + +--------+ +--------+------+------+ | fentaNYL (PF) injection 25-50 | Given | 02/16/20 | 25 mcg | | | | mcg 25-50 mcg, Intravenous, | | 17 3:52 | | | | | EVERY 5 MIN PRN, Pain, Starting | | PM PDT | | | | | 02/15/17 at 1523, Maximum | | | | | | | total dose 250 mcg. PACU IV | | | | | | | Narcotic Priority: Only use | | | | | | | fentanyl for immediate post-op | | | | | | | pain (one dose) or breakthrough | | | | | | | pain when any other IV narcotics | | | | | | | ordered have been ineffective (if | | | | | | | ordered). If both morphine and | | | | | | | hydromorphone are ordered, use | | | | | | | morphine first, and use | | | | | | | hydromorphone if morphine | | | | | | | ineffective., Recovery/Phase I | | | | | | + +--------+ +--------+------+------+ +-------+ +--------+---+---+ | Given | 02/16/20 | 25 mcg | | | | | 17 3:43 | | | | | | PM PDT | | | | +-------+ +--------+---+---+ | Given | 02/16/20 | 25 mcg | | | | | 17 3:35 | | | | | | PM PDT | | | | +-------+ +--------+---+---+ +---+---+ | | | +---+---+ + +-------+ +---------+---+---+ | HYDROmorphone (DILAUDID) 1 | Given | 02/16/20 | 0.25 mg | | | | mg/mL injection 0.5 mg 0.5 mg, | | 17 12:49 | | | | | Intravenous, EVERY 15 MIN PRN, | | PM PDT | | | | | Pain, Starting 02/15/17 at | | | | | | | 1110, For 4 doses | | | | | | + +-------+ +---------+---+---+ +---+---+ | | | +---+---+ + +-------+ +------+---+---+ | HYDROmorphone (DILAUDID) 1 | Given | 02/16/20 | 1 mg | | | | mg/mL injection 1 mg 1 mg, | | 17 9:41 | | | | | Intravenous, ONCE, Wed02/15/17 at | | AM PDT | | | | | 0930, For 1 dose | | | | | | + +-------+ +------+---+---+ +---+---+ | | | +---+---+ + +-------+ +--------+---+---+ | HYDROmorphone (DILAUDID) | Given | 02/16/20 | 0.3 mg | | | | injection 0.2-0.5 mg 0.2-0.5 mg, | | 17 3:59 | | | | | Intravenous, EVERY 5 MIN PRN, | | PM PDT | | | | | Pain, Starting Wed02/15/17 at | | | | | | | 1523, Maximum total dose 4 mg. | | [...] +-------+ +--------+---+---+ +-------+ +--------+---+---+ | Given | 02/16/20 | 0.1 mg | | | | | 17 3:52 | | | | | | PM PDT | | | | +-------+ +--------+---+---+ | Given | 02/16/20 | 0.3 mg | | | | | 17 3:43 | | | | | | PM PDT | | | | +-------+ +--------+---+---+ +---+---+ | | | +---+---+ + +-------+ +------+---+---+ | oxyCODONE (ROXICODONE) tablet | Given | 02/16/20 | 5 mg | | | | 2.5-10 mg 2.5-10 mg, Oral, EVERY | | 17 4:57 | | | | | 3 HOURS PRN, Pain, Starting Mon | | PM PDT | | | | | 02/15/17 at 1608, First dose must | | | | [...] +-------+ +------+---+---+ +---+---+ | | | +---+---+ documented in this encounter"
--- OUTSIDE RECORDS SUMMARY | ~2019-11-07 | XMS | Encounter Summary ---
Demographics + + + | Address | [address] | | | [place] [address] | + + + | Home Phone | | + + + | Preferred Language | Unknown | + + + | Marital Status | | + + + | Anglican Affiliation | Unknown | + + + | Race | Unknown | + + + | Ethnic Group | Unknown | + + + Author + + + | Author | [facility] | | | and [place] | + + + | Organization | [facility] | | | and [place] [...] Team Providers + +------+ + | Care Compliance Representative Dealer Name | Role | Phone | + +------+ + | Tomer Wills MD | PCP | | + +------+ + Reason for Visit + + + | Reason | Comments | + + + | Knee Pain | | + + + Encounter Details +--------+---------+ + + + | Date | Type | Department | Care Team | Description | +--------+---------+ + + + | 02/15/ | Surgery | [facility] | Tyler Florian | Hardware Removal of | | 2016 | | MED CTR OR INTRA OP | MD Carol [address] | Right Knee | | | | [address] | [place] | | | | | [place] | [address] | | | | | [address] | | | | | | [phone] | | | +--------+---------+ + + + [...] + documented in this encounter Discharge Instructions Vj Moore PA-C - 02/15/2017Keep appointment with Dr. Hogan [...] mg of acetaminophen (Tylenol) per day. Hydrocodone-acetaminophen ([place] ) and Oxycodone-acetaminophen (Percocet) have 325 mg acetaminophen per tablet. [facility] acetaminophen is 325 mg per tablet. Extra [...] tablet by | 2 | 0 | // | | | (ZOFRAN) 4 mg tablet [...] | | | | | | (NICOLLE GUMMIES | day. | [...] for comparison only - no result from [place]. | [facility] | + + + [...] for comparison only - no result from [place]. | [facility] | + + + [...] | | | | | Intravenous, ONCE, 02/15/17 at | | AM PDT | | [...] ropivacaine (NAROPIN) 5 mg/mL | Given | 02/16/20 | 10 mLs | | Surgical | | (0.5%) injection PRN, Starting | | 17 3:01 | | | Site | | 02/15/17 at 1501, Intra-op | | PM PDT | | | | + +-------+ +--------+---+ + +---+---+ | | | +---+---+ documented in this encounter"
--- OUTSIDE RECORDS SUMMARY | ~2019-11-07 | XMS | Encounter Summary ---
Demographics + + + | Address | [address] | | | [place] [address] | + + + | Home Phone | | + + + | Preferred Language | Unknown | + + + | Marital Status | | + + + | Congregational Affiliation | Unknown | + + + | Race | Unknown | + + + | Ethnic Group | Unknown | + + + Author + + + | Author | [facility] | | | and [place] | + + + | Organization | [facility] | | | and [place] [...] Team Providers + +------+ + | Care Horticultural Farm Manager Name | Role | Phone | + [...] | | | | | | | ME REMOVAL | | | | | | [...] | | | | | [address] | [place], [place] | | | | | [place], [place] | [address] | | | | | [address] | [phone] | | | | | [phone] | | | | | | | Cliff Mortensen, | | | | | | [address] | | | | | | [place], [place] | | | | | | [address] | | | | | | [phone] | | | | | | | [...] +----+---+ + + | | 0 | Gordon | | | | 8 | 43-degrees [...] +----+---+ + + | | 0 | Gordon off | | | | 9 | [...] [address]5 by | | eral | Antecubital; [id number] | Yesenia Jackman, | Loida Sanchez RN [...]
--- OUTSIDE RECORDS SUMMARY | ~2019-11-07 | XMS | Encounter Summary ---
Demographics + + + | Address | [address] | | | [place] [address] | + + + | Home Phone | | + + + | Preferred Language | Unknown | + + + | Marital Status | | + + + | Synagogue Affiliation | Unknown | + + + | Race | Unknown | + + + | Ethnic Group | Unknown | + + + Author + + + | Author | [facility] | | | and [place] | + + + | Organization | [facility] | | | and [place] [...] Team Providers + +------+ + | Care Music Librarian Name | Role | Phone | + +------+ + | Tomer Wills MD | PCP | | + +------+ + Encounter Details +--------+ + + + + | Date | Type | Department | Care Team | Description | +--------+ + + + + | 02/15/ | Anesthesia | [facility] | Butch Mortensen | | | 2017 | Event | MED CTR OR INTRA OP | MD Maricruz [address] | | | | | [address] | [place], [place] | | | | | [place] | [address] | | | | | [address] | [phone] | | | | | [phone] | | | +--------+ + + + + Anesthesia Record + + + + + | Procedure Name | Responsible | Anesthesia Start | Anesthesia Stop Time | | | Anesthesiologist | Time | | + + + + + | Hardware Removal of | Butch Mortensen, | 02/15/17 1437 | 02/15/17 1521 | | Right Knee (Right | MD | | | | Knee) | | | | + + + + + +----+---+ + + | Da | T | Event | Comment | | te | i | | | | | m | | | | | e | | | +----+---+ + + | 04 | 1 | An Checkout | Pre-use anesthesia machine/equipment checkout. | | /1 | 4 | | | | 0/ | 3 | | | | 20 | 6 | | | | 17 | | | | +----+---+ + + | | 1 | An Start | Room ready, anesthesia equipment checked, essential drugs & | | | 4 | | equipment available. Patient Identity checked, anesthesia plan | | | 3 | | explained and consent obtained. Patient transported to OR, | | | 7 | | Monitors applied. Reassessment prior to anesthesia | | | | | induction/procedure. | +----+---+ + + | | 1 | | | | | 4 | | | | | 3 | | | | | 9 | | | +----+---+ + + | | 1 | An Start | | | | 4 | Data | | | | 3 | | | | | 9 | | | +----+---+ + + | | 1 | an nabila now | | | | 4 | | | | | 4 | | | | | 0 | | | +----+---+ + + | | 1 | Antibiotic | | | | 4 | Given | | | | 4 | | | | | 1 | | | +----+---+ + + | | 1 | Preoxygenat | Oxygen administered, patient sedated, ventilating spontaneously. | | | 4 | ed | | | | 4 | | | | | 4 | | | +----+---+ + + | | 1 | An | | | | 4 | Induction | | | | 4 | | | | | 6 | | | +----+---+ + + | | 1 | An | Smooth IV induction, easy mask airway. LMA placed and well | | | 4 | Intubation | seated. Breathing Circuit attached to LMA. BSEB/ETCO2 | | | 4 | | (auscultation and capnography) and placement confirmed. | | | 7 | | | +----+---+ + + | | 1 | Pre-Procedu | | | | 4 | ral Timeout | | | | 5 | Completed | | | | 2 | | | +----+---+ + + | | 1 | An Tourn | | | | 4 | Inflated | | | | 5 | | | | | 4 | | | +----+---+ + + | | 1 | First | | | | 4 | Inc/Proc St | | | | 5 | | | | | 5 | | | +----+---+ + + | | 1 | An Tourn | | | | 5 | Deflated | | | | 0 | | | | | 1 | | | +----+---+ + + | | 1 | an nabila now | PACU | | | 5 | | | | | 1 | | | | | 6 | | | +----+---+ + + | | 1 | An Stop | Patient handed off to recovery nurse. | | | 2 | | | | | 1 | | | +----+---+ + + +------+ | Meds | +------+ + +---------+ | Name | Total | + +---------+ | midazolam | 2 mg | + +---------+ | propofol | 125 mg | + +---------+ | ketamine | 20 mg | + +---------+ | fentaNYL injection (2 mL) | 100 mcg | + +---------+ | ondansetron | 4 mg | + +---------+ | dexamethasone | 4 mg | + +---------+ | ceFAZolin in saline (ANCEF) IVPB | 2 g | | 2 g | | + +---------+ | LR (Infusion) | 800 mL | + +---------+ + + | [...] + + + | Perine | 12/15/16; 1246 (created via | 12/15/16 1246 by | 07/14/17 09 by | | ural | procedure documentation); Right:; | John Munoz | John Munoz | | | 07/14/17; 905 | MD BERYL | MD BERYL | +--------+ + + + | Periph | 02/15/17; 0942; Right; | 02/15/17 0942 by | 02/15/17 1720 by | | eral | Antecubital; [id number] | Inessa Le RN | Radha Ontiveros RN | | IV | catheter system; 20 gauge; 0; | | | | | distraction, tolerated well; no | | | | | longer indicated, removed per | | | | | policy/procedure, catheter/device | | | | | intact; short term use; | | | | | 02/15/17; 1720 | | | +--------+ + + + | Airway | Placement Date: 02/15/17; | 02/15/17 1437 by | 02/15/17 1600 by | | | Placement Time: 1437 (created via | Butch Mortensen, | Radha Ontiveros RN | | | procedure documentation); Mask | MD | | | | Ventilation: EZ; Attempts: 1; | | | | | Airway Type: laryngeal mask; | | | | | Size: 3; Trauma: none; Placement | | | | | Check: exhaled CO2 detection | | | | | device, bilateral chest rise, | | | | | breath sounds equal bilaterally; | | | | | Removal: other (see comment) | | | | | (removed in PACU); Removal Date: | | | | | 02/15/17; Removal Time: 1600; | | | | | Additional Comments: Smooth IV | | | | | induction. LMA placed and well | | | | | seated. Secured in place. | | | | | Breathing Circuit attached to | | | | | LMA. BSEB/ETCO2 (auscultation | | | | | and capnography) and placement | | | | | confirmed. | | | +--------+ + + + | Read | 02/15/17; 1502; Right; knee; | 02/15/17 1502 by | 02/15/171804 by | | only - | healing within expectations; | Daphnie Peterson RN | Radha Ontiveros RN | | | 02/15/17; 1804 | | | | Incisi | | | | | on | | [...] | + +--------+ + + + | ANE AIRWAY NOTE | Routin | 02/15/2017 | | Results for this | | | e | 3:01 PM | | procedure are in the | | | | PDT | | results section. | + +--------+ + + + documented in this encounter Results Anesthesia Airway Note (02/15/2017 3:01 PM PDT) + + + | Narrative | Performed At | + + + | Butch Mortensen MD 02/15/2017 15:01 Anesthesia Airway | | | Placement 02/15/2017 14:37 Preprocedure check: patient identified, | | | oxygen, airway assessed, patient reassessment prior to induction, | | | airway equipment checked and suction Mask ventilation: easy | | | Attempts: 1 Airway type: laryngeal mask Size: 3 Cuffed: cuffed | | | Route, reference point: center of mouth Tube secured with: adhesive | | | tape Trauma: none Tube placement verification: carbon dioxide | | | detection, equal bilateral breath sounds and bilateral chest rise | | | Performing provider: BUTCH MORTENSEN Comments: Smooth IV | | | induction. LMA placed and well seated. Secured in place. Breathing | | | Circuit attached to LMA. BSEB/ETCO2 (auscultation and | | | capnography) and placement confirmed. | | + + + documented in this encounter Visit Diagnoses Not on filedocumented in this encounter Administered Medications + +--------+ +------+------+------+ | Medication Order | MAR | Action | Dose | Rate | Site | | | Action | Date | | | | + +--------+ +------+------+------+ | ceFAZolin in saline (ANCEF) | Given | 02/16/20 | 2 g | | | | IVPB 2 g 2 g, Intravenous, | | 17 2:41 | | | | | Administer over 30 Minutes, Prior | | PM PDT | | | | | to Incision, Starting Mon | | | | | | | 02/15/17 at 1314, For 1 dose, Give | | | | | | | within one hour prior to | | | | | | | incision. Keep in refrigerator., | | | | | | | Pre-op, Indications: Surgical | | | | | | | Prophylaxis | | | | | | + +--------+ +------+------+------+ +---+---+ | | | +---+---+ + +-------+ +------+---+---+ | dexamethasone (DECADRON) 10 | Given | 02/16/20 | 4 mg | | | | mg/mL injection Intravenous, | | 17 2:41 | | | | | PRN, Starting Wed02/15/17 at | | PM PDT | | | | | 1441, Anesthesia Intra-op | | | | | | + +-------+ +------+---+---+ +---+---+ | | | +---+---+ + +-------+ +--------+---+---+ | fentaNYL (PF) injection | Given | 02/16/20 | 50 mcg | | | | Intravenous, PRN, Pain, Starting | | 17 2:46 | | | | | Wed02/15/17 at 1446, Anesthesia | | PM PDT | | | | | Intra-op | | | | | | + +-------+ +--------+---+---+ +-------+ +--------+---+---+ | Given | 02/16/20 | 50 mcg | | | | | 17 2:41 | | | | | | PM PDT | | | | +-------+ +--------+---+---+ +---+---+ | | | +---+---+ + +-------+ +-------+---+---+ | ketamine 50 mg/mL injection | Given | 02/16/20 | 20 mg | | | | Intravenous, PRN, Starting Wed | | 17 2:46 | | | | | 02/15/17 at 1446, Anesthesia | | PM PDT | | | | | Intra-op | | | | | | + +-------+ +-------+---+---+ +---+---+ | | | +---+---+ + +---------+ +---+---+---+ | lactated ringers (LR) infusion | New Bag | 02/16/20 | | | | | Intravenous, CONTINUOUS PRN, | | 17 2:40 | | | | | Starting 02/15/17 at 1440, | | PM PDT | | | | | Anesthesia Intra-op | | | | | | + +---------+ +---+---+---+ +---+---+ | | | +---+---+ + +-------+ +------+---+---+ | midazolam (VERSED) 1 mg/mL | Given | 02/16/20 | 2 mg | | | | injection Intravenous, PRN, | | 17 2:42 | | | | | Anxiety, Starting Wed02/15/17 at | | PM PDT | | | | | 1442, Anesthesia Intra-op | | | | | | + +-------+ +------+---+---+ +---+---+ | | | +---+---+ + +-------+ +------+---+---+ | ondansetron (ZOFRAN) injection | Given | 02/16/20 | 4 mg | | | | Intravenous, PRN, Nausea, | | 17 2:41 | | | | | Vomiting, Starting Wed02/15/17 at | | PM PDT | | | | | 1441, Anesthesia Intra-op | | | | | | + +-------+ +------+---+---+ +---+---+ | | | +---+---+ + +-------+ +--------+---+---+ | propofol (DIPRIVAN) injection | Given | 02/16/20 | 125 mg | | | | Intravenous, PRN, Starting Mon | | 17 2:46 | | | | | 02/15/17 at 1446, Anesthesia | | PM PDT | | | | | Intra-op | | | | | | + +-------+ +--------+---+---+ +---+---+ | | | +---+---+ documented in this encounter"
--- OUTSIDE RECORDS SUMMARY | ~2019-11-07 | XMS | Encounter Summary ---
Demographics + + + | Address | [address] | | | [place] [address] | + + + | Home Phone | | + + + | Preferred Language | Unknown | + + + | Marital Status | | + + + | Baptism Affiliation | Unknown | + + + | Race | Unknown | + + + | Ethnic Group | Unknown | + + + Author + + + | Author | [facility] | | | and [place] | + + + | Organization | [facility] | | | [...] Team Providers + +------+ + | Care Freezer Unloader Name | Role | Phone | + +------+ + PCP | Unavailable | + +------+ + Encounter Details +--------+ + + + + | Date | Type | Department | Care Team | Description | +--------+ + + + + | 04/23/ | Hospital | [facility] | | | | 2000 | Encounter | [facility] [address] | | | | | | [place], [place] | | | | | | [address] | | | | | | [phone] | | | +--------+ + + + [...]
--- OUTSIDE RECORDS SUMMARY | ~2019-11-07 | XMS | Encounter Summary ---
Demographics + + + | Address | [address] | | | [place] [address] | + + + | Home Phone | | + + + | Preferred Language | Unknown | + + + | Marital Status | | + + + | Anabaptist Affiliation | Unknown | + + + | Race | Unknown | + + + | Ethnic Group | Unknown | + + + Author + + + | Author | [facility] | | | and [place] | + + + | Organization | [facility] | | | and [place] | [...] Team Providers + +------+ + | Care Machine Accountant Name | Role | Phone | + +------+ + | Tomer Wills MD | PCP | | + +------+ + Encounter Details +--------+ + + + + | Date | Type | Department | Care Team | Description | +--------+ + + + + | 07/06/ | Hospital | [facility] | Tyler Florian | SOB (shortness of | | 2017 | Encounter | [facility] | MD Carol [address] | breath) on exertion; | | | | [address] [place] | [place] | Secondary | | | | [place] | [address] | hypertension; | | | | [address] | | Hyperlipidemia, | | | | [phone] | | unspecified | | | | [...] | | | | follow-up exam | +--------+ + + + + Social [...] + + documented as of this encounter Medications at Time of Discharge [...] tablet by | 2 | 0 | 10/17/20 | | | (ZOFRAN) 4 mg tablet [...] | | | | | | (NICOLLE RICHARD | day. | | | | | [...] + +--------+ + + + | XR CHEST PA AND | Routin | 07/06/2017 | SOB (shortness of | Results for this | | LATERAL | e | 1:08 PM | breath) on exertion | procedure [...] ST. | [address] | [place] | [phone] | | [facility] | | [address] | | | - IMAGING | | | | + + + + + documented in this encounter Visit Diagnoses + + | Diagnosis | + + | SOB (shortness of breath) on exertion Shortness of breath | + + | [...] examination, following other surgery | + + documented in this encounter"
--- OUTSIDE RECORDS SUMMARY | ~2019-11-07 | XMS | Encounter Summary ---
Demographics + + + | Address | [email or web address] | | | [place] [address] | + + + | Home Phone | | + + + | Preferred Language | Unknown | + + + | Marital Status | | + + + | Church Affiliation | Unknown | + + + | Race | Unknown | + + + | Ethnic Group | Unknown | + + + Author + + + | Author | [facility] | | | and [place] | + + + | Organization | [facility] | | | and [place] [...] Team Providers + +------+ + | Care Hat Blocker Name | Role | Phone | + +------+ + | Tomer Wills MD | PCP | | + +------+ + Reason for Visit + + + | Reason | Comments | + + + | Insurance | | | Authorization | | + + + Encounter Details +--------+ + + + + | Date | Type | Department | Care Team | Description | +--------+ + + + + | 09/30/ | Telephone | [facility] | Lance Aguiar MD | Insurance | | 2015 | | GASTROENTEROLOGY | [address] | Authorization | | | | [address] [facility] | [address] [place] | | | | | [address] [place], [place] | [address] | | | | | [address] | | | | | | [phone] | | | +--------+ + + + [...]
--- OUTSIDE RECORDS SUMMARY | ~2019-11-07 | XMS | Encounter Summary ---
Demographics + + + | Address | [address] | | | [place] [address] | + + + | Home Phone | | + + + | Preferred Language | Unknown | + + + | Marital Status | | + + + | Protestant Affiliation | Unknown | + + + | Race | Unknown | + + + | Ethnic Group | Unknown | + + + Author + + + | Author | [facility] | | | and [place] | + + + | Organization | [facility] | | | and [place] [...] Team Providers + +------+ + | Care Ink Grinder Name | Role | Phone | + +------+ + | Tomer Wills MD | PCP | | + +------+ + Reason for Visit +--------+ + | Reason | Comments | +--------+ + | Other | | +--------+ + Encounter Details +--------+ + + + + | Date | Type | Department | Care Team | Description | +--------+ + + + + | 02/16/ | Telephone | [facility] | Tyler Florian | Jen | | 2016 | | ORTHOPEDIC SURGERY | MD Carol [address] [facility] | | | | | [address] [facility] | [place] | | | | | [place] | [address] | | | | | [address] | | | | | | [phone] | | | +--------+ + + + [...]
--- OUTSIDE RECORDS SUMMARY | ~2019-11-07 | XMS | Encounter Summary ---
Demographics + + + | Address | [address] | | | [place] [address] | + + + | Home Phone | | + + + | Preferred Language | Unknown | + + + | Marital Status | | + + + | Latter Day Affiliation | Unknown | + + + | Race | Unknown | + + + | Ethnic Group | Unknown | + + + Author + + + | Author | [facility] | | | and [place] | + + + | Organization | [facility] | | | and [place] [...] Team Providers + +------+ + | Care Dye Maker Name | Role | Phone | + [...] | | | | | | | GA REMOVAL | | | | | | [...] + + | 07/14/ | Hospital | [facility] | Tyler Florian | Pain from implanted | | 2017 | Encounter | MED CTR OR INTRA OP | MD Carol [address] | hardware, subsequent | | | | [address] | [place], [place] | encounter | | | | [place], [place] | [address] | | | | | [address] | | | | | | [phone] | | | +--------+ + + + [...] You can't be awakened Date Last Reviewed: 08/25/[id number] [employer]. [address] [place] [address], [place] [address]. All righ ts reserved. This information is [...] mg of acetaminophen (Tylenol) per day. Hydrocodone-acetaminophen ([place] ) and Oxycodone-acetaminophen (Percocet) have 325 mg [...] 3 days after discharge, contact the doc jennifer's office. documented in this encounter Medications at [...] mg by mouth | | 0 | 03/23/20 | | | 5 mg tablet | [...] + | Diagnosis | + + | Pain from implanted hardware, subsequent encounter | + + documented in this encounter Administered Medications + +--------+---------+------+------+------+ [...] Shortness of Breath, Starting | | | 07/14/17 at 0922, For 1 dose, | | [...] | | | | | Pain, Starting Wed07/14/17 at | | | | | | [...] 17 9:38 | | | | | 07/14/17 at 0945, For 1 dose, | | [...] DBP > 100, Starting | | | 07/14/17 at 0922, Hold if HR < | [...] Anxiety, or agitation, Starting | | | 07/14/17 at 0922, Maximum total | | | [...] PRN, Nausea, Vomiting, | | | Starting 07/14/17 at 0934, | | | First line [...]
--- OUTSIDE RECORDS SUMMARY | ~2019-11-07 | XMS | Encounter Summary ---
Demographics + + + | Address | [address] | | | [place] [address] | + + + | Home Phone | | + + + | Preferred Language | Unknown | + + + | Marital Status | | + + + | Christianity Affiliation | Unknown | + + + | Race | Unknown | + + + | Ethnic Group | Unknown | + + + Author + + + | Author | [facility] | | | and [place] | + + + | Organization | [facility] | | | and [place] | + + + | Address | Unknown | + + + | Phone | Unavailable | + + + Support + + +---------+ + | Name | Relationship | Address | Phone | + + +---------+ + | Diony Motanic | ECON | Unknown | | + + +---------+ + | eDvon Riggs | ECON | Unknown | | + + +---------+ + | Ricardo Escobar | ECON | Unknown | | + + +---------+ + Care Team Providers + +------+ + | Care Sales And Leasing Agent Name | Role | Phone | + +------+ + | Tomer Wills MD | PCP | | + +------+ + Encounter Details +--------+ + + + + | Date | Type | Department | Care Team | Description | +--------+ + + + + | 04/15/ | Imaging | [facility] | Provider, | | | 2017 | Exam | MED CTR EXTERNAL | MD N[address] | | | | | IMAGING | Cristóbal Hancock. BETSY | | | | | [phone] | [place] [address] | | +--------+ + + + + [...] + + + | XR KNEE RIGHT 4 + VW | Routin | 04/13/2017 | | Results for this | | | e | 10:30 AM | | procedure are in the | | | | PDT | | results section. | + +--------+ + + + documented in this encounter Results ROCIO Pacheco 4 + Vw (04/13/2017 10:30 AM PDT) + + | Specimen | [...]
--- OUTSIDE RECORDS SUMMARY | ~2019-11-07 | XMS | Encounter Summary ---
Demographics + + + | Address | [address] | | | [place] [address] | + + + | Home Phone | | + + + | Preferred Language | Unknown | + + + | Marital Status | | + + + | Samaritan Affiliation | Unknown | + + + | Race | Unknown | + + + | Ethnic Group | Unknown | + + + Author + + + | Author | [facility] | | | and [place] | + + + | Organization | [facility] | | | and [place] [...] Team Providers + +------+ + | Care Electrician Control Equipment Name | Role | Phone | + [...] + + | 08/26/ | Office | [facility] | Vj Rutherford | S/P orthopedic | | 2017 | Visit | ORTHOPEDIC SURGERY | [address] | surgery, follow-up | | | | [address] [facility] | [facility] | exam (Primary Dx); | | | | [place] | [facility] [place] [place] [address] | [place] of | | | | [address] | [phone] | operative wound, | | | | [phone] | | initial encounter | +--------+---------+ + [...] anteriorly. She is not taking any prescribed kcam-bwz-tlmsodq pain medication. Current level pain is r [...] at the right knee. Continue with any wvgh-kyt-mnrlhgs pain medication as necessary for control of pain. Follow-up at this time will be on an as-needed basis. B. Patient is advised that if they have any questions, comments or concerns to contact our office. Electronically signed by: Vj Rutherford PA-C 08/26/2017 11:28 This note was dictated using the [employer] voice recognition system. Minor errors in grammar [...]
--- OUTSIDE RECORDS SUMMARY | ~2019-11-07 | XMS | Encounter Summary ---
Demographics + + + | Address | [address] | | | [place] [address] | + + + | Home Phone [...] | Organization | [facility] | | | and [place] [...] Team Providers + +------+ + | Care Cashier Gambling Name | Role | Phone | + +------+ + PCP | Unavailable | + +------+ + Encounter Details +--------+ + + + + | Date | Type | Department | Care Team | Description | +--------+ + + + + | 10/05/ | Hospital | [facility] | Familia Alonso, | | | 2005 | Encounter | MED CTR MP INTRA OP | MD [address] [facility] | | | | | [address] | [place], [place] | | | | | [place], [place] | [address] | | | | | [address] | | | | | | [phone] | | | +--------+ + + + [...]
--- OUTSIDE RECORDS SUMMARY | ~2019-11-07 | XMS | Encounter Summary ---
Demographics + + + | Address | [address] | | | [place] [address] | + + + | Home Phone | | + + + | Preferred Language | Unknown | + + + | Marital Status | | + + + | Temple Affiliation | Unknown | + + + | Race | Unknown | + + + | Ethnic Group | Unknown | + + + Author + + + | Author | [facility] | | | and [place] | + + + | Organization | [facility] | | | and [place] | [...] Team Providers + +------+ + | Care Deputy Manager Name | Role | Phone | + +------+ + PCP | Unavailable | + +------+ + Encounter Details +--------+ + + + + | Date | Type | Department | Care Team | Description | +--------+ + + + + | 05/05/ | Hospital | [facility] | Conversion | Pain | | 2014 | Encounter | CONVERSION [address] | Transaction, | | | | [address] | Provider Unknown | | | | | [place], [place] | [phone] | | | | | [address] | | | | | | [phone] | | | +--------+ + + + [...] + + + +---------+ + + | diazepam (VALIUM) | Take 5 mg by mouth | | 0 | 08/04/20 | | | 5 mg tablet | Twice daily as | | | 10 | 7 | | | needed. | | | | | + + + +---------+ + + | flecainide | 1/2 tablet by mouth | | 0 | 08/04/20 | | | (TAMBOCOR) 50 MG | twice daily | | | 10 | 6 | | tablet | | | | | | + + + +---------+ + + | | TABS as needed by | | 0 | 08/04/20 | | | Hydrocodone-Acetamin | mouth | | | 10 | 6 | | ophen (VICODIN PO) | | | | | | + + + +---------+ + + | METOPROLOL | TABS 25-50 mg daily | | 0 | 07/22/20 | | | TARTRATE PO | | | | 12 | 7 | + + + +---------+ + + | Minocycline HCl | | | 0 | 07/22/20 | | | (MINOCIN) 100 MG | | | | 12 | 6 | | SOLR | | | | | | + + + +---------+ + + | ondansetron | Take 4 mg by mouth | | 0 | 08/04/20 | | | (ZOFRAN) 4 mg tablet | as needed. | | | 10 | 6 | + + + +---------+ + + | zolpidem (AMBIEN | | | 0 | 08/04/20 | | | CR) 12.5 MG CR | | | | 10 | 7 | | tablet | | | | | | + + + +---------+ + + documented as of this encounter Plan of Treatment Not on filedocumented as of this encounter Procedures + +--------+ + + + | Procedure Name | Priori | Date/Time | Associated Diagnosis | Comments | | | ty | | | | + +--------+ + + + | FL C ARM < 1 HOUR | Routin | 01/02/2011 | | Results for this | | | e | 4:40 AM | | procedure are in the | | | | PST | | results section. | + +--------+ + + + documented in this encounter Results FL C-Arm < 1 Hour (01/02/2011 4:40 AM PST) + + | Specimen | + + | | + + + + + | Narrative | Performed At | + + + | This is a non-reportable procedure without a radiologist report and | | | is used for image storage only | | + + + + + | Procedure Note | + + | Taurus Boles - 06/24/2019 1:02 AM PDT This is a non-reportable procedure | | without a radiologist report and isused for image storage only | + + documented in this encounter Visit Diagnoses + + | Diagnosis | + + | Pain Generalized pain | + + documented in this encounter"
--- OUTSIDE RECORDS SUMMARY | ~2019-11-07 | XMS | Encounter Summary ---
Demographics + + + | Address | [address] | | | [place] [address] | + + + | Home Phone | | + + + | Preferred Language | Unknown | + + + | Marital Status | | + + + | Shinto Affiliation | Unknown | + + + | Race | Unknown | + + + | Ethnic Group | Unknown | + + + Author + + + | Author | [facility] | | | and [place] | + + + | Organization | [facility] | | | and [place] [...] Team Providers + +------+ + | Care Air Export Coordinator Name | Role | Phone | + [...] | +--------+ + + + + | 08/11/ | Telephone | [facility] | Tyler Florian | Appointment | | 2016 | | ORTHOPEDIC SURGERY | MD Carol [address] [place] [address] | | | | | [address] [facility] | [place] | | | | | [place] | [address] | | | | | [address] | | | | | | [phone] | | | +--------+ + + + [...]
--- OUTSIDE RECORDS SUMMARY | ~2019-11-07 | XMS | Encounter Summary ---
Demographics + + + | Address | [address] | | | [place] [address] | + + + | Home Phone | | + + + | Preferred Language | Unknown | + + + | Marital Status | | + + + | Taoist Affiliation | Unknown | + + + | Race | Unknown | + + + | Ethnic Group | Unknown | + + + Author + + + | Author | [facility] | | | and [place] | + + + | Organization | [facility] | | | and [place] [...] Team Providers + +------+ + | Care Utilities And Maintenance Supervisor Name | Role | Phone | + +------+ + PCP | Unavailable | + +------+ + Encounter Details +--------+ + + + + | Date | Type | Department | Care Team | Description | +--------+ + + + + | 07/13/ | Hospital | [facility] | Familia Alonso, | | | 2006 - | Encounter | MED CTR GENERIC IP | MD [address] [facility] | | | | | CONV DEPT [address] | [place], [place] | | | 07/14/ | | [place], | [address] | | | 2005 | | [place] [address] | | | | | | [phone] | | | +--------+ + + + [...]
--- OUTSIDE RECORDS SUMMARY | ~2019-11-07 | XMS | Encounter Summary ---
Demographics + + + | Address | [address] | | | [place] [address] | + + + | Home Phone | | + + + | Preferred Language | Unknown | + + + | Marital Status | | + + + | Restoration Affiliation | Unknown | + + + | Race | Unknown | + + + | Ethnic Group | Unknown | + + + Author + + + | Author | [facility] | | | and [place] | + + + | Organization | [facility] | | | and [place] | [...] Team Providers + +------+ + | Care Packing Machine Feeder Name | Role | Phone | + +------+ + | Tomer Wills MD | PCP | | + +------+ + Encounter Details +--------+ + + + + | Date | Type | Department | Care Team | Description | +--------+ + + + + | 06/10/ | Episode | [facility] | Pattie Murcia, | | | 2016 | Changes | ORTHOPEDIC SURGERY | Airplane Pilot Supervisor | | | | | [address] [place] [address] | | | | | | [place] | | | | | | [address] | | | | | | [phone] | | | +--------+ + + + [...]
--- OUTSIDE RECORDS SUMMARY | ~2019-11-07 | XMS | Encounter Summary ---
Demographics + + + | Address | [address] | | | [place] [address] | + + + | Home Phone | | + + + | Preferred Language | Unknown | + + + | Marital Status | | + + + | Muslim Affiliation | Unknown | + + + | Race | Unknown | + + + | Ethnic Group | Unknown | + + + Author + + + | Author | [facility] | | | and [place] | + + + | Organization | [facility] | | | and [place] | [...] Team Providers + +------+ + | Care Watershed Manager Name | Role | Phone | [...] | SR | | | | | [phone] | | | +--------+ + + + [...]
--- OUTSIDE RECORDS SUMMARY | ~2019-11-07 | XMS | Encounter Summary ---
Demographics + + + | Address | [address] | | | [place] [address] | + + + | Home Phone [...] + | Organization | [facility] | | | and [place] [...] Team Providers + +------+ + | Care Manager Field Sales Name | Role | Phone | + +------+ + PCP | Unavailable | + +------+ + Encounter Details +--------+ + + + + | Date | Type | Department | Care Team | Description | +--------+ + + + + | 06/10/ | Hospital | C GENERIC OP | [place], | Cervicalgia | | 2009 | Encounter | CONVERSION [address] | | | | [address] | [address] | | | | | [place], [place] | [place] [address] | | | | | [address] | [phone] | | | | | [phone] | | | +--------+ + + + [...] | + +--------+ + + + | MRI LUMBAR SPINE WO | Routin | 06/10/2009 | | Results for this | | CONTRAST | e | 1:10 PM | | procedure are in the | | | | PDT | | results section. | + +--------+ + + + | MRI THORACIC SPINE | Routin | 06/10/2009 | | Results for this | | WO CONTRAST | e | 12:46 PM | | procedure are in the | | | | PDT | | results section. | + +--------+ + + + | MRI CERVICAL SPINE | Routin | 06/10/2009 | | Results for this | | WO CONTRAST | e | 12:31 PM | | procedure are in the | | | | PDT | | results section. | + +--------+ + + + documented in this encounter Results MRI Lumbar Spine wo Contrast (06/10/2009 1:10 PM PDT) + + | Specimen | + + | | + + + + + | Narrative | Performed At | + + + | [id number] | | | Page 1 RADIOLOGY | | | / | | | O/P [facility] | | | NAME: [place] [address] | | | | | | | | | DATE OF : 1955 ORDER NUMBER: [id number] | | | EXAM DATE/TIME: 06/10/2009 01:10 P ORDERING PHYSICIAN: SELF, | | | REFERRED ORDER DETAIL: 1430 / / HMR EXAM DESCRIPTION: MRI LUMBAR | | | SPINE UNENHANCED | | | | | | MRI LUMBAR SPINE UNENHANCED 06/10/2009 HISTORY "723.1, 724.1, | | | 724.2" Dysesthesia of the lower extremities. COMPARISON Prior | | | examination of relevance: None. TECHNIQUE The study was performed | | | on a 3 T magnet. Sequences in the lumbar spine will be provided upon | | | request. They typically are performed in sagittal and axial | | | projections from the lower thoracic to the upper sacral segments | | | encompassing the lumbar spine in its entirety in the sagittal plane. | | | The axial images are customarily obtained from L2 to S1. On occasion, | | | if the findings dictate, additional higher sequence, typically from | | | T11 to L2 will be performed. FINDINGS There are numerous focal | | | areas of increased signal intensity on both T1 and T2 sequences | | | involving all of the osseous structures, which compromise of the | | | lumbar and sacral vertebral bodies. Evidently, these represent small | | | hemangiomata. There is no evidence of bone destruction or axial focal | | | pedicle involvement. The conus medullaris appears within normal | | | limits. The right renal collecting system is somewhat more | | | prominent than its left-sided counterpart. This does not appear to be | | | due to obstruction. The axial images extend from L2 to S1. L2-3 | | | is unremarkable. L3-4 is unremarkable. L4-5 is notable for a | | | mild degree of facet hypertrophy. There is a fairly sizable | | | intraforaminal disk herniation on the left side which appears to | | | encroach upon the left L4 nerve root as it effaces the thecal sac. | | | There is a small amount of epidural fat remaining in the left | | | foramen, but encroachment is still considered likely. There is an | | | intraforaminal disk protrusion on the right side as well, but it is | | | insufficiently voluminous to encroach directly upon the exiting right | | | L5 nerve root. Slight central disk protrusion is seen, without | | | encroachment. L5-S1 disk is not responsible for intraforaminal | | | nerve root encroachment. However, it is moderately sizable and | | | extends the width of the thecal sac, interposed between S1 nerve | | | roots. There is S1 nerve root contact bilaterally which is slightly | | | more apparent on the right than left side. However, both S1 nerve | | | roots may be encroached upon in the lateral recesses. Refer to axial | | | image 27/7. IMPRESSION 1. 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 2. Bilateral foraminal | | | encroachment due to disk protrusion L4-5, left more so than | | | right. Small central disk protrusion. In addition to the left L4 | | | radiculopathy, this disk protrusion may be a source of diskogenic | | | pain. 3. Lumbosacral junction disk protrusion centrally, which | | | probably accounts for bilateral lateral recess encroachment | | | affecting both S1 nerve roots. Read by DENNISE MARI MD | | | 06/11/2009 08:32 A Electronically Signed by DENNISE MARI MD | | | 06/12/2009 07:59 A A | | | 12:58 P [facility]/[id number]/ cc: DENNISE MARI MD CHRISTIANO | | | MD JOSEFINA REFERRED SELF AVNI [facility], | | | MD | | + + + + + | Procedure Note | + + | Taurus Boles - 07/03/2019 5:13 AM PDT | | [id number] Page 1 | | RADIOLOGY / | | O/P | | [facility] NAME: JONELLE VERA | | [place] [address] | | | | DATE OF : 1955 | | | | ORDER NUMBER: [id number] | | EXAM DATE/TIME: 06/10/2009 01:10 P | | ORDERING PHYSICIAN: NANCY RUSSO | | ORDER DETAIL: 1430 / / HMR | | EXAM DESCRIPTION: MRI LUMBAR SPINE UNENHANCED | | | | MRI LUMBAR SPINE UNENHANCED 06/10/2009 | | | | HISTORY | | "723.1, 724.1, 724.2" | | Dysesthesia of the lower extremities. | | | | COMPARISON | | Prior examination of relevance: None. | | | | TECHNIQUE | | The study was performed on a 3 T magnet. Sequences in the lumbar spine | | will be provided upon request. They typically are performed in sagittal | | and axial projections from the lower thoracic to the upper sacral | | segments encompassing the lumbar spine in its entirety in the sagittal | | plane. The axial images are customarily obtained from L2 to S1. On | | occasion, if the findings dictate, additional higher sequence, typically | | from T11 to L2 will be performed. | | | | FINDINGS | | There are numerous focal areas of increased signal intensity on both T1 | | and T2 sequences involving all of the osseous structures, which | | compromise of the lumbar and sacral vertebral bodies. Evidently, these | | represent small hemangiomata. There is no evidence of bone destruction | | or axial focal pedicle involvement. The conus medullaris appears within | | normal limits. | | | | The right renal collecting system is somewhat more prominent than its | | left-sided counterpart. This does not appear to be due to obstruction. | | The axial images extend from L2 to S1. | | | | L2-3 is unremarkable. | | | | L3-4 is unremarkable. | | | | L4-5 is notable for a mild degree of facet hypertrophy. There is a | | fairly sizable intraforaminal disk herniation on the left side which | | appears to encroach upon the left L4 nerve root as it effaces the thecal | | sac. There is a small amount of epidural fat remaining in the left | | foramen, but encroachment is still considered likely. There is an | | intraforaminal disk protrusion on the right side as well, but it is | | insufficiently voluminous to encroach directly upon the exiting right L5 | | nerve root. Slight central disk protrusion is seen, without | | encroachment. | | | | L5-S1 disk is not responsible for intraforaminal nerve root | | encroachment. However, it is moderately sizable and extends the width of | | the thecal sac, interposed between S1 nerve roots. There is S1 nerve | | root contact bilaterally which is slightly more apparent on the right | | than left side. However, both S1 nerve roots may be encroached upon in | | the lateral recesses. Refer to axial image 27/7. | | | | IMPRESSION | | 1. Multiple widely scattered punctate and overall rather small | | hemangiomata. | | 2. Bilateral foraminal encroachment due to disk protrusion L4-5, left | | more so than right. Small central disk protrusion. In addition to the | | left L4 radiculopathy, this disk protrusion may be a source of | | diskogenic pain. | | 3. Lumbosacral junction disk protrusion centrally, which probably | | accounts for bilateral lateral recess encroachment affecting both S1 | | nerve roots. | | | | | | Read by | | DENNISE MARI MD 06/11/2009 08:32 A | | Electronically Signed by | | DENNISE MARI MD 06/12/2009 07:59 A | | | | A | | P | | [facility]/[id number]/ | | cc: DENNISE MARI MD | | CHRISTIANO ROCHA MD | | REFERRED SELF | | AVNI [facility] MD | + + MRI Thoracic Spine wo Contrast (06/10/2009 12:46 PM PDT) + + | Specimen | + + | | + + + + + | Narrative | Performed At | + + + | [id number] | | | Page 1 RADIOLOGY | | | / | | | O/P [facility] | | | [place] [address] | | | | | | | | | DATE OF : 1955 ORDER NUMBER: [id number] | | | EXAM DATE/TIME: 06/10/2009 11:14 A ORDERING PHYSICIAN: | | | AVNI [facility] ORDER DETAIL: 1340 / / HMR EXAM | | | DESCRIPTION: MRI THORACIC SPINE UNENHANCED | | | | | | MRI THORACIC SPINE UNENHANCED 06/10/2009 HISTORY Thoracic pain. | | | Evaluate for focal abnormality. TECHNIQUE This study was | | | performed on a 3.0T magnet in sagittal and axial projections with a | | | variety of imaging sequences, including T1 FLAIR and T2 fat | | | saturation. FINDINGS There is a hemangioma in the T2 vertebral | | | body. It is of no clinical concern, however. The axial images | | | extend from T9 to T12. T9-10 is unremarkable in cross section. | | | T10-T11 and T11-T12 are unremarkable. The thoracic cord is | | | unremarkable with no evidence of mass or encroachment. At all levels, | | | the foramina are intact. No disk herniations are observed. No height | | | loss is seen. IMPRESSION 1. Hemangioma at T2. 2. No focal disk | | | herniation or cord abnormality is observed. Read by DENNISE Loving | | | MD JACEY 06/11/2009 08:29 A Electronically Signed by DENNISE Loving | | | MD JACEY 06/12/2009 07:59 A A DT: | | | 06/11/2009 12:48 P [facility]/[id number]/ cc: DENNISE MARI MD | | | MD AVNI SUAZO MD | | + + + + + | Procedure Note | + + | Taurus Boles - 07/03/2019 5:13 AM PDT | | [id number] Page 1 | | RADIOLOGY / | | O/P | | [facility] NAME: JONELLE VERA | | [place] [address] | | | | DATE OF : 1955 | | | | ORDER NUMBER: [id number] | | EXAM DATE/TIME: 06/10/2009 11:14 A | | ORDERING PHYSICIAN: AVNI [facility] | | ORDER DETAIL: 1340 / / HMR | | EXAM DESCRIPTION: MRI THORACIC SPINE UNENHANCED | | | | MRI THORACIC SPINE UNENHANCED 06/10/2009 | | | | HISTORY | | Thoracic pain. Evaluate for focal abnormality. | | | | TECHNIQUE | | This study was performed on a 3.0T magnet in sagittal and axial | | projections with a variety of imaging sequences, including T1 FLAIR and | | T2 fat saturation. | | | | FINDINGS | | There is a hemangioma in the T2 vertebral body. It is of no clinical | | concern, however. | | | | The axial images extend from T9 to T12. | | | | T9-10 is unremarkable in cross section. | | | | T10-T11 and T11-T12 are unremarkable. | | | | The thoracic cord is unremarkable with no evidence of mass or | | encroachment. At all levels, the foramina are intact. No disk | | herniations are observed. No height loss is seen. | | | | IMPRESSION | | 1. Hemangioma at T2. | | 2. No focal disk herniation or cord abnormality is observed. | | | | | | Read by | | DENNISE MARI MD 06/11/2009 08:29 A | | Electronically Signed by | | DENNISE MARI MD 06/12/2009 07:59 A | | | | A | | P | | [facility]/[id number]/ | | cc: DENNISE MARI MD | | CHRISTIANO ROCHA MD | | AVNI [facility] MD | + + MRI Cervical Spine wo Contrast (06/10/2009 12:31 PM PDT) + + | Specimen | + + | | + + + + + | Narrative | Performed At | + + + | [id number] | | | Page 1 RADIOLOGY | | | / | | | O/P [facility] | | | NAME: [place] [address] | | | | | | | | | DATE OF : 1955 ORDER NUMBER: [id number] | | | EXAM DATE/TIME: 06/10/2009 11:14 A ORDERING PHYSICIAN: | | | AVNI [facility] ORDER DETAIL: 1220 / / [facility] EXAM | | | DESCRIPTION: MRI CERVICAL SPINE UNENHANCED | | | | | | MRI CERVICAL SPINE UNENHANCED 06/10/2009 HISTORY Cervicalgia, | | | 723.1 Thoracic pain, 724.1 TECHNIQUE This study was performed on | | | a 3.0T magnet and consists of a comprehensive rendering of the | | | cervical axis from a point above the skull base in the sagittal | | | projection down to the thoracic inlet. The axial images commence | | | either at C2 or C3, extending to the T1 level. Sagittal and axial | | | images are usually obtained. COMPARISON Prior examination of | | | relevance: None. FINDINGS The posterior fossa is unremarkable. No | | | intraaxial or extraaxial abnormalities are observed. Craniocervical | | | junction is unremarkable. There is some increased signal intensity in | | | the C2 vertebral body, as well as T2 vertebral body. Both can be | | | explained on the basis of hemangioma formation. Changes just | | | described are of no clinical significance. One series of axial images | | | was obtained from C2 to C7. Above that point, the foramina are | | | widely patent. Below C7, refer to the thoracic spine MRI, separate | | | report. C3-4 is unremarkable. C4-5 is notable for mild central | | | disk protrusion without nerve root encroachment. The foramina are | | | both widely patent. This could be a source of diskogenic pain, | | | however. Foramina at C4-5 are widely patent bilaterally. Minimal | | | disk protrusion is noted, confined by the posterior longitudinal | | | ligament. C5-6 foramina are widely patent. C6-7 foramina are | | | widely patent. Cervicothoracic junction is unremarkable. | | | IMPRESSION 1. No hemangiomata are noted at C2 and T2. 2. The cord | | | appears normal at all levels without encroachment. 3. Minor amount of | | | disk protrusion at C4-5. This may be a source of diskogenic | | | pain. No nerve root encroachment noted there nor elsewhere, | | | however. Read by DENNISE MARI MD 06/11/2009 08:22 A | | | Electronically Signed by DENNISE MARI MD 06/12/2009 07:59 A | | | A P [facility]/[id number]/ | | | cc: MD CHRISTIANO QUIJANO MD | | | AVNI [facility] MD | | + + + + + | Procedure Note | + + | Taurus Boles - 07/03/2019 5:13 AM PDT | | [id number] Page 1 | | RADIOLOGY / | | O/P | | [facility] NAME: JONELLE VERA | | [place] [address] | | | | DATE OF : 1955 | | | | ORDER NUMBER: [id number] | | EXAM DATE/TIME: 06/10/2009 11:14 A | | ORDERING PHYSICIAN: AVNI [facility] | | ORDER DETAIL: 1220 / / HMR | | EXAM DESCRIPTION: MRI CERVICAL SPINE UNENHANCED | | | | MRI CERVICAL SPINE UNENHANCED 06/10/2009 | | | | HISTORY | | Cervicalgia, 723.1 | | Thoracic pain, 724.1 | | | | TECHNIQUE | | This study was performed on a 3.0T magnet and consists of a | | comprehensive rendering of the cervical axis from a point above the | | skull base in the sagittal projection down to the thoracic inlet. The | | axial images commence either at C2 or C3, extending to the T1 level. | | Sagittal and axial images are usually obtained. | | | | COMPARISON | | Prior examination of relevance: None. | | | | FINDINGS | | The posterior fossa is unremarkable. No intraaxial or extraaxial | | abnormalities are observed. Craniocervical junction is unremarkable. | | There is some increased signal intensity in the C2 vertebral body, as | | well as T2 vertebral body. Both can be explained on the basis of | | hemangioma formation. Changes just described are of no clinical | | significance. One series of axial images was obtained from C2 to C7. | | Above that point, the foramina are widely patent. Below C7, refer to the | | thoracic spine MRI, separate report. | | | | C3-4 is unremarkable. | | | | C4-5 is notable for mild central disk protrusion without nerve root | | encroachment. The foramina are both widely patent. This could be a | | source of diskogenic pain, however. | | | | Foramina at C4-5 are widely patent bilaterally. Minimal disk protrusion | | is noted, confined by the posterior longitudinal ligament. | | | | C5-6 foramina are widely patent. | | | | C6-7 foramina are widely patent. | | | | Cervicothoracic junction is unremarkable. | | | | IMPRESSION | | 1. No hemangiomata are noted at C2 and T2. | | 2. The cord appears normal at all levels without encroachment. | | 3. Minor amount of disk protrusion at C4-5. This may be a source of | | diskogenic pain. No nerve root encroachment noted there nor | | elsewhere, however. | | | | | | | | | | Read by | | DENNISE MARI MD 06/11/2009 08:22 A | | Electronically Signed by | | DENNSIE MARI MD 06/12/2009 07:59 A | | | | A | | P | | [facility]//[id number]/ | | cc: DENNISE MARI MD | | CHRISTIANO ROCHA MD | | AVNI [facility] MD | + + documented in this encounter Visit Diagnoses + + | Diagnosis | + + | Cervicalgia | + + documented in this encounter
--- OUTSIDE RECORDS SUMMARY | ~2019-11-07 | XMS | Encounter Summary ---
Demographics + + + | Address | [address] | | | [place] [address] | + + + | Home Phone | | + + + | Preferred Language | Unknown | + + + | Marital Status | | + + + | Hindu Affiliation | Unknown | + + + | Race | Unknown | + + + | Ethnic Group | Unknown | + + + Author + + + | Author | [facility] | | | and [place] | + + + | Organization | [facility] | | | and [place] [...] Team Providers + +------+ + | Care Sports Team Manager Name | Role | Phone | [...] Description | +--------+---------+ + + + | 08/18/ | Office | [facility] | Vj Rutherford | S/P orthopedic | | 2017 | Visit | ORTHOPEDIC SURGERY | [address] | surgery, follow-up | | | | [address] | [facility] | exam (Primary Dx); | | | | [address] [place] | [place] [address] | Dehiscence of | | | | [address] | [phone] | operative wound, | | | | [phone] | | initial encounter | +--------+---------+ + [...] + documented as of this encounter Progress Vj López PA-C - 08/18/2017 10:45 AM PDTFormatting of this note might be differe nt from the original. Name:Lilian Reynoso Todays Date: 08/19/2017 Age: 62 y.o. PCP: Tomer Wills MD Chief Complaint Patient presents with Post Op right knee hardware removal DOS 07/14/17 SUBJECTIVE: Returns today after patient fell about 1 week ago when at a animal facility. Describes jennifer t she fell onto her knee and that should the incision site did dehisce. She went to [facility] where the emergency department physician irrigated the dehisced incision site and close d it with nylon. Also provided her with 1 g IM Rocephin. Her follow-up in our office. Not es today that the knee is healing appropriately. Pain is minimal. Also notes that she has a small Scratch at the dorsum of her left hand OBJECTIVE: Patient does have pictures of dehisced wound on her phone. The incision at the anterior re st of the right knee actually appears to be healing appropriately without any signs of infec tion. There is no erythema, induration, ecchymosis or drainage today. Sutures in place at the incision site; placed 08/10/17 Imaging/Studies: No studies to review at this time. There were no vitals filed for this visit. ASSESSMENT/PLAN: 1. Incision site dehiscence 2. Right knee hardware removal, status postop A. recovering appropriately at the right knee. She did dehisce the wound about 1 week ago . Does appear to be healing appropriately today. I see no signs of infection. She receive d 1 g of IM Rocephin at the emergency room. I will not place her on antibiotics today. She has a small Scratch at the dorsum of her left hand that is healing appropriately today with out signs of infection or complication. We'll have her follow-up in approximately 1 week fo r reevaluation anticipate suture removal at the interest of the right knee at that time. B. Patient is advised that if they have any questions, comments or concerns to contact our office. Electronically signed by: Vj Rutherford PA-C 08/19/2017 15:06 This note was dictated using the [employer] recognition system. Minor errors in grammar may [...] encounter | + + documented in this encounter"
--- OUTSIDE RECORDS SUMMARY | ~2019-11-07 | XMS | Encounter Summary ---
Demographics + + + | Address | [address] | | | [place] [address] | + + + | Home Phone | | + + + | Preferred Language | Unknown | + + + | Marital Status | | + + + | Pentecostalism Affiliation | Unknown | + + + | Race | Unknown | + + + | Ethnic Group | Unknown | + + + Author + + + | Author | [facility] | | | and [place] | + + + | Organization | [facility] | | | and [...] Team Providers + +------+ + | Care Marketing Programs Specialist Name | Role | Phone | + +------+ + | Tomer Wills MD | PCP | | + +------+ + Encounter Details +--------+ + + + + | Date | Type | Department | Care Team | Description | +--------+ + + + + | 12/15/ | Anesthesia | [facility] | Arthur Munoz | | | 2017 | Event | [facility] | Aliza CORDOBA MD [address] | | | | | [facility] [address] | [address] [facility] | | | | | [place], [place] | [place] [address] | | | | | [address] | [phone] | | | | | [phone] | | | +--------+ + + + + Anesthesia Record + + + + + | Procedure Name | Responsible | Anesthesia Start | Anesthesia Stop Time | | | Anesthesiologist | Time | | + + + + + | BLOCK:FEMORAL NERVE | Arthur Munoz | | | | CATHETER | II, MD | | | + + + + + +----+---+ + + | Da | T | Event | Comment | | te | i | | | | | m | | | | | e | | | +----+---+ + + | 02 | 1 | | | | /0 | 1 | | | | 7/ | 5 | | | | 20 | 6 | | | | 17 | | | | +----+---+ + + | | 1 | An Checkout | Pre-use anesthesia machine/equipment checkout. | | | 1 | | | | | 5 | | | | | 7 | | | +----+---+ + + | | 1 | Procedure | | | | 1 | Start | | | | 5 | | | | | 8 | | | +----+---+ + + | | 1 | AN | Per surgeon request | | | 1 | Antibiotic | | | | 5 | declined | | | | 9 | | | +----+---+ + + | | 1 | an stop | | | | 2 | data | | | | 4 | | | | | 2 | | | +----+---+ + + | | 1 | Procedure | | | | 2 | Stop | | | | 4 | | | | | 3 | | | +----+---+ + + +------+ | Meds | +------+ + + + | Name | Total | + + + | propofol (DIPRIVAN) injection | 40 mg | | (bolus) (20 mL) | | + + + | ropivacaine (NAROPIN) 2 mg/mL | 126,823.64 mL | | (0.2%) injection 400 mL | | + + + | lidocaine 1% | 5 mL | + + + | bupivacaine 0.5% + epi 1:200k | 15 mL | + + + + + | No agents on file. | + + + + | No blood administrations on file. | + + +--------+ + + + | Type | Details | Placement | Removal | +--------+ + + + | Perine | 12/15/16; 124 (created via | 12/15/16 1246 by | 07/14/17905 by | | ural | procedure documentation); Right:; | Arthur Munoz | Arthur Munoz | | | 07/14/17; 905 | MD BERYL | MD BERYL | +--------+ + + + documented in [...] + +--------+ + + + | ANE NERVE BLOCK | Routin | 12/15/2016 | | Results for this | | CATHETER NOTE | e | 12:48 PM | | procedure are in the | | | | PST | | results section. | + +--------+ + + + documented in this encounter Results Anesthesia Perineural Note (12/15/2016 12:48 PM PST) + + + | Narrative | Performed At | + + + | Arthur Munoz II, MD 12/15/2016 12:48 Perineural Procedure | | | Note 12/15/2016 12:46 Nerve block: femoral Laterality: right | | | Continuous block with catheter: Yes Provider requested procedure: | | | chiara Indication: acute pain management and see requesting | | | provider's documentation (uncontrolled despite orals and after IV | | | meds at two ER visits today. ONly other reasonable option is | | | admission IV hydration and IV analgesia) Preprocedure check: | | | patient identified, preevaluation including airway assessment | | | complete, consent obtained, reassessment prior to procedure, | | | monitors applied, timeout performed, risks/benefits discussed and | | | procedure and rescue equipment checked Patient position: supine | | | Preparation: chlorhexidine/isopropyl alcohol Introducer used: yes | | | Local anesthetic infiltration volume in ml: 5 mL Technique: | | | ultrasound Radiology image stored in patient's chart: ultrasound | | | Needle: Tuohy Needle size: 17 g Needle length: 9 cm Depth of | | | nerve/plexus: 5 cm Catheter depth at skin: 10 cm Medication | | | administered through: catheter Negative findings: no blood aspirated, | | | no CSF, no paresthesia and no air aspirated Test response dose: | | | negative Total volume of local anesthetic solution administered: 15 | | | (through catheter) Attempts: 1 Ease of procedure: easy Dressing: | | | transparent dressing, sterile tape strips, tape and catheter | | | securement device Please see anesthesia record or flowsheet for | | | vital sign documentation and see anesthesia record or MAR for all | | | medication documentation. Performing provider: ARTHUR MUNOZ | | | ALIZA CORDOBA Electronically Signed by: Arthur Munoz II, MD | | | ESig date/time: 12/15/2016 12:46 | | | | | + + + documented in this encounter Visit Diagnoses Not on filedocumented in this encounter Administered Medications + +--------+ +--------+------+------+ | Medication Order | MAR | Action | Dose | Rate | Site | | | Action | Date | | | | + +--------+ +--------+------+------+ | bupivacaine 0.5%-EPINEPHrine | Given | 12/15/19 | 15 mLs | | | | 1:200,000 (PF) injection PRN, | | 12:20 | | | | | Other, Starting Wed12/15/16 at | | PM PST | | | | | 1220, Anesthesia Intra-op | | | | | | + +--------+ +--------+------+------+ +---+---+ | | | +---+---+ + +-------+ +-------+---+---+ | lidocaine (PF) 1% injection | Given | 12/15/19 | 5 mLs | | | | Infiltration, PRN, Starting Wed | 12:20 | | | | | 12/15/16 at 1220, Anesthesia | | PM PST | | | | | Intra-op | | | | | | + +-------+ +-------+---+---+ +---+---+ | | | +---+---+ + +-------+ +-------+---+---+ | propofol (DIPRIVAN) injection | Given | 12/15/19 | 20 mg | | | | Intravenous, PRN, Starting Tue | | 17 12:07 | | | | | 12/15/16 at 1204, Anesthesia | | PM PST | | | | | Intra-op | | | | | | + +-------+ +-------+---+---+ +-------+ +-------+---+---+ | Given | 12/15/19 | 20 mg | | | | | 17 12:04 | | | | | | PM PST | | | | +-------+ +-------+---+---+ +---+---+ | | | +---+---+ + +---------+ +---------+---------+---+ | ropivacaine (NAROPIN) 2 mg/mL | New Bag | 12/15/19 | 5 mL/hr | 5 mL/hr | | | (0.2%) injection 400 mL 400 mL, | | 17 12:36 | | | | | PERINEURAL, ONCE, 12/15/16 at | | PM PST | | | | | 1155, For 1 dose, Intra-op | | | | | | + +---------+ +---------+---------+---+ +---+---+ | | | +---+---+ documented in this encounter"
--- OUTSIDE RECORDS SUMMARY | ~2019-11-07 | XMS | Encounter Summary ---
Demographics + + + | Address | [address] | | | [place] [address] | + + + | Home Phone | | + + + | Preferred Language | Unknown | + + + | Marital Status | | + + + | Jehovah'S Witness Affiliation | Unknown | + + + | Race | Unknown | + + + | Ethnic Group | Unknown | + + + Author + + + | Author | [facility] | | | and [place] | + + + | Organization | [facility] | [...] Team Providers + +------+ + | Care Hr Specialist Name | Role | Phone | + +------+ + | Tomer Wills MD | PCP | | + +------+ + Reason for Referral Evaluate & Treat (Routine) +--------+ + + + + + | Status | Reason | Specialty | Diagnoses / | Referred By | Referred To | | | | | Procedures | Contact | Contact | +--------+ + + + + + | Closed | Specialty | Gastroenterol | Diagnoses | Harri, | Harri, | | | Services | ogy | Weight loss | Lance Verde MD | Lance Verde MD | | | Required | | Early | [address], | | | | | satiety | [place], [place] | [address] | | | | | Personal | [address] [place] | [place], | | | | | history of | [place], [place] | [place] [address] | | | | | other | [address] | Phone: | | | | | specified | Phone: | [phone] | | | | | conditions | [phone] | Fax: | | | | | Procedures | Fax: | [phone] | | | | | [place] | [phone] | | | | | | COLONOSCOPY | | | | | | | FLX DX | | | | | | | W/COLLJ SPEC | | | | | | | WHEN PFRMD | | | | | | | TX | | | | | | | COLONOSCOPY | | | | | | | W/BIOPSY | | | | | | | SINGLE/MULTI | | | | | | | PLE TX | | | | | | | COLSC FLX | | | | | | | W/RMVL OF | | | | | | | TUMOR POLYP | | | | | | | LESION SNARE | | | | | | | TQ TX | | | | | | | ESOPHAGOGAST | | | | | | | RODUODENOSCO | | | | | | | PY TRANSORAL | | | | | | | DIAGNOSTIC | | | | | | | TX EDG | | | | | | | TRANSORAL | | | | | | | BIOPSY | | | | | | | SINGLE/MULTI | | | | | | | PLE TX | | | | | | | ANESTH,INTES | | | | | | | HENRY,SCOPE,L | | | | | | | OW TX | | | | | | | ANESTH,UGI | | | | | | | ENDOSCOPY | | | +--------+ + + + + + Reason for Visit + + + | Reason | Comments | + + + | Gastroesophageal | | | Reflux | | + + + | Colon Cancer | | | Screening | | + + + Evaluate & Treat (Routine) +--------+--------+ + + + + | Status | Reason | Specialty | Diagnoses / | Referred By | Referred To | | | | | Procedures | Contact | Contact | +--------+--------+ + + + + | Closed | | Gastroenterol | Diagnoses | [place], | [facility] | | | | ogy | GERD | Tomer | Gastroenterol | | | | | (gastroesoph | MD [address] | ogy [address] | | | | | ageal reflux | [address] | [address] [place] | | | | | disease) | [address] | [address] [place] | | | | | | [place], | [place], [place] | | | | | | [place] | [address] | | | | | | [address] | Phone: | | | | | | Phone: | [phone] | | | | | | [phone] | Fax: | | | | | | Fax: | [phone] | | | | | | [phone] | | +--------+--------+ + + + + Encounter Details +--------+---------+ + + + | Date | Type | Department | Care Team | Description | +--------+---------+ + + + | 08/24/ | Office | [facility] | Lance Aguiar MD | Weight loss (Primary | | 2016 | Visit | GASTROENTEROLOGY | [address], [place] | Dx); History of | | | | [address] [place] | [address] [place], [place] | tachycardia; Change | | | | [address] [place], [place] | [address] | in bowel habit; | | | | [address] | | Nondiabetic | | | | [phone] | | gastroparesis | +--------+---------+ + + + Social History [...] + + + | Blood Pressure | 116/68 | 08/24/2016 3:32 PM | | | | | PDT | | + + + + + | Pulse | 62 | 08/24/2016 3:32 PM | | | | | PDT | | + + + + + | Temperature | - | - | | + + + + + | Respiratory Rate | 16 | 08/24/2016 3:32 PM | | | | | PDT | | + + + + + | Oxygen Saturation | 98% | 08/24/2016 3:32 PM | | | | | PDT | | + + + + + | Inhaled Oxygen | - | - | | | Concentration | | | | + + + + + | Weight | 49.9 kg (110 lb) | 08/24/2016 3:32 PM | | | | | PDT | | + + + + + | Height | 160 cm (5' 3") | 08/24/2016 3:32 PM | | | | | PDT | | + + + + + | Body Mass Index | 19.49 | 08/24/2016 3:32 PM | | | | | PDT | | + + + + + documented in this encounter Progress Notes Lance Aguiar MD - 08/24/2016 5:06 PM PDT Subjective: Patient ID: Lilian Reynoso is a 61 y.o. female. HPI Comments: Patient is seen for several gastrointestinal tract concerns normal loss possi ble reflux change in bowel pattern Patient states that she has a tendency toward constipation. She gives her sulfa tap water enema in order to evacuate. Tapwater enemas low-volume. She also takes codeine for chronic pain associated with an ankle fracture but does not take it on a regular basis. Her colono scopy in [address] Mcknight and was a difficult exam due to bowel redundancy. She had inadequate IV conscious sedation. Patient denies blood or mucus in the stools. The re is no family history of colon cancer or polyps. Patient also complains of early progresses satiety and involuntary weight loss. She has to eat small frequent meals. The patient has been taking activity or yogurt and has noticed d ecrease in nausea symptoms and epigastric discomfort. She does have occasional symptoms of reflux with retrosternal burning. She notices that she gets nausea and upset stomach if she eats larger portions and snack portions. It seemed upset her stomach give her nausea and s tomatitis. Particular foods that seem to increase her reflux include carbonation. The prema ent's symptoms of heartburn and been improved since she discontinued alcohol ingestion. Gastroesophageal Reflux Associated symptoms include anxiety, constipation and a rash. Her past medical history is s ignificant for GERD. Filed Vitals: 08/24/16 1532 BP: 116/68 Pulse: 62 Resp: 16 PainSc: 0 - No pain Allergies Allergen Reactions Droperidol Nausea Only Metoclopramide Hcl Sulfa Antibiotics Tizanidine Hydrochloride Past Medical History Diagnosis Date HTN (hypertension) Hyperlipidemia Sciatic nerve pain left side Insomnia Sinusitis Pharyngitis, acute Degeneration, intervertebral disc, lumbar Past Surgical History Procedure Laterality Date Laparoscopy 1993 Hysterectomy 1996 total Ankle fracture surgery Right 2006 History reviewed. No pertinent family history. Social History Social History Marital Status: Spouse Name: N/A Number of Children: N/A Years of Education: N/A Social History Main Topics Smoking status: Never Smoker Smokeless tobacco: Never Used Alcohol Use: None Drug Use: None Sexual Activity: Not Asked Other Topics Concern None Social History Narrative Review of Systems Constitutional: Positive for unexpected weight change. Eyes: Positive for pain. Cardiovascular: Positive for palpitations. Gastrointestinal: Positive for constipation and abdominal distention. Skin: Positive for rash. Psychiatric/Behavioral: The patient is nervous/anxious. All other systems reviewed and are negative. Objective: Physical Exam Constitutional: She is oriented to person, place, and time. She appears well-developed and well-nourished. No distress. HENT: Head: Normocephalic and atraumatic. Right Ear: External ear normal. Left Ear: External ear normal. Nose: Nose normal. Mouth/Throat: Oropharynx is clear and moist. No oropharyngeal exudate. Eyes: Conjunctivae and EOM are normal. Pupils are equal, round, and reactive to light. Righ t eye exhibits no discharge. Left eye exhibits no discharge. No scleral icterus. Neck: Normal range of motion. Neck supple. No JVD present. No tracheal deviation present. Cardiovascular: Normal rate, regular rhythm, normal heart sounds and intact distal pulses. Exam reveals no gallop and no friction rub. No murmur heard. Pulmonary/Chest: Effort normal and breath sounds normal. No stridor. No respiratory distres s. She has no wheezes. She has no rales. She exhibits no tenderness. Abdominal: Soft. She exhibits no distension and no mass. There is no tenderness. There is n o rebound and no guarding. Musculoskeletal: Normal range of motion. She exhibits no edema or tenderness. Lymphadenopathy: She has no cervical adenopathy. Neurological: She is alert and oriented to person, place, and time. No cranial nerve defici t. She exhibits normal muscle tone. Coordination normal. Skin: Skin is warm and dry. No rash noted. She is not diaphoretic. No erythema. No pallor. Psychiatric: She has a normal mood and affect. Her behavior is normal. Judgment and thought content normal. Nursing note and vitals reviewed. Assessment: Appropriate candidate for colonoscopy given change in bowel pattern last exam 9 years ago a bnormal weight loss Abnormal weight loss probably secondary to gastroparesis given symptoms of early progresses satiety Other medical problems stable are being addressed by primary care physician Inadequate IV conscious sedation propofol appropriate for that reason and history of diffic ult to control atrial tachycardia Plan: Upper endoscopy colonoscopy with propofol sedation benefits and risks of the procedure are explained to the patient she concurs and she'll be scheduled as an outpatient at her [facility] Portions of this report were transcribed using voice recognition software. Every effort wa s made to ensure accuracy; however, inadvertent computerized peanut sheller errors may be pre sent. documented in this enc ounter Plan of Treatment + + +--------+ + + | Name | Type | Priori | Associated Diagnoses | Order Schedule | | | | ty | | | + + +--------+ + + | Ambulatory referral | Outpatient | Routin | Weight loss | Expected: | | to Gastroenterology | Referral | e | History of | 09/17/2016, Expires: | | (rena) | | | tachycardia | 08/24/2017 | + + +--------+ + + documented as of this encounter Procedures + +--------+ + + + | Procedure Name | Priori | Date/Time | Associated Diagnosis | Comments | | | ty | | | | + +--------+ + + + | LABS - EXTERNAL SCAN | | 09/17/2016 | | Results for this | | | | 12:00 AM | | procedure are in the | | | | PST | | results section. | + +--------+ + + + | DIAGNOSTIC REPORT - | | 09/17/2016 | | Results for this | | EXTERNAL SCAN | | 12:00 AM | | procedure are in the | | | | PST | | results section. | + +--------+ + + + documented in this encounter Results DIAGNOSTIC REPORT - EXTERNAL SCAN (09/17/2016 12:00 AM PST) + + + | Narrative | Performed At | + + + | Ordered by an | | | unspecified provider. | | + + + LABS - EXTERNAL SCAN (09/17/2016 12:00 AM PST) + + + | Narrative | Performed At | + + + | Ordered by an | | | unspecified provider. | | + + + documented in this encounter Visit Diagnoses + + | Diagnosis | + + | Weight loss - Primary Loss of weight | + + | History of tachycardia | + + | Change in bowel habit | + + | Nondiabetic gastroparesis Gastroparesis | + + documented in this encounter
--- OUTSIDE RECORDS SUMMARY | ~2019-11-07 | XMS | Encounter Summary ---
Demographics + + + | Address | [address] | | | [place] [address] | + + + | Home Phone | | + + + | Preferred Language | Unknown | + + + | Marital Status | | + + + | Catholic Affiliation | Unknown | + + + | Race | Unknown | + + + | Ethnic Group | Unknown | + + + Author + + + | Author | [facility] | | | and [place] | + + + | Organization | [facility] | | | and [place] | [...] Team Providers + +------+ + | Care Industry Operations Investigator Name | Role | Phone | + +------+ + | Tomer Wills MD | PCP | | + +------+ + Reason for Visit + + + | Reason | Comments | + + + | Appointment | egd,colon | + + + Encounter Details +--------+ + + + + | Date | Type | Department | Care Team | Description | +--------+ + + + + | 09/10/ | Telephone | [facility] | Lance Aguiar MD | Appointment | | 2015 | | GASTROENTEROLOGY | [address], [place] | (egd,colon) | | | | [address] [place] | [address] [place], [place] | | | | | [address] [place], [place] | [address] | | | | | [address] | | | | | | [phone] | | | +--------+ + + + [...]
--- OUTSIDE RECORDS SUMMARY | ~2019-11-07 | XMS | Encounter Summary ---
Demographics + + + | Address | [address] | | | [place] [address] | + + + | Home Phone | | + + + | Preferred Language | Unknown | + + + | Marital Status | | + + + | Druze Affiliation | Unknown | + + + | Race | Unknown | + + + | Ethnic Group | Unknown | + + + Author + + + | Author | [facility] | | | and [place] | + + + | Organization | [facility] | | | and [...] Team Providers + +------+ + | Care Steeplechase Jockey Name | Role | Phone | + +------+ + | Tomer Wills MD | PCP | | + +------+ + Encounter Details +--------+ + + + + | Date | Type | Department | Care Team | Description | +--------+ + + + + | 06/16/ | Episode | [facility] | Pattie Murcia, | | | 2016 | Changes | ORTHOPEDIC SURGERY | [employer] | | | | | [address] [place] [address] | | | | | | [place] | | | | | | [address] | | | | | | [phone] | | | +--------+ + + + [...]
--- OUTSIDE RECORDS SUMMARY | ~2019-11-07 | XMS | Encounter Summary ---
Demographics + + + | Address | [address] | | | [place] [address] | + + + | Home Phone | | + + + | Preferred Language | Unknown | + + + | Marital Status | | + + + | Christian Affiliation | Unknown | + + + | Race | Unknown | + + + | Ethnic Group | Unknown | + + + Author + + + | Author | [facility] | | | and [place] | + + + | Organization | [facility] | | | and [place] | [...] Team Providers + +------+ + | Care Director Of Compliance Name | Role | Phone | + [...] + + | 04/13/ | Telephone | [facility] | Tyler Florian | Appointment | | 2016 | | ORTHOPEDIC SURGERY | MD Carol [address] [place] [address] | | | | | [address] [facility] | [place] | | | | | [place] | [address] | | | | | [address] | | | | | | [phone] | | | +--------+ + + + [...]
--- OUTSIDE RECORDS SUMMARY | ~2019-11-07 | XMS | Encounter Summary ---
Demographics + + + | Address | [address] | | | [place] [address] | + + + | Home Phone | | + + + | Preferred Language | Unknown | + + + | Marital Status | | + + + | Episcopal Affiliation | Unknown | + + + | Race | Unknown | + + + | Ethnic Group | Unknown | + + + Author + + + | Author | [facility] | | | and [place] | + + + | Organization | [facility] | | [...] Team Providers + +------+ + | Care Herbicide Service Sales Representative Name | Role | Phone | + +------+ + | Tomer Wills MD | PCP | | + +------+ + Reason for Visit +---------+ + | Reason | Comments | +---------+ + | Post Op | hardware removal right knee DOS 02/15/17 | +---------+ + Encounter Details +--------+ + + + + | Date | Type | Department | Care Team | Description | +--------+ + + + + | 02/17/ | Clinical | [facility] | Vj Rutherford | S/P orthopedic | | 2017 | Support | ORTHOPEDIC SURGERY | [address] | surgery, follow-up | | | | [address] [facility] | [address] | exam (Primary Dx) | | | | [place] | [place] [address] | | | | | [address] | [phone] | | | | | [phone] | | | +--------+ + + + [...] + + + + | Temperature | 37.1 C (98.8 F) | 02/17/2017 10:59 AM | | | | | PDT [...] + + + + | Weight | 50.8 kg (112 lb) | 02/17/2017 10:59 AM | | | | | PDT | | + + + + + | Height | 160 cm (5' 3") | 02/17/2017 10:59 AM | | | | | PDT | | + + + + + | Body Mass Index | 19.84 | 02/17/2017 10:59 AM | | | | | PDT | | + + + + + documented in this encounter Progress Vj López PA-C - 02/17/2017 1:52 PM PDTFormatting of this note might be differe nt from the original. Name:Lilian Reynoso Todays Date: 02/17/2017 Age: 61 y.o. PCP: Tomer Wills MD Chief Complaint Patient presents with Post Op hardware removal right knee DOS 02/15/17 SUBJECTIVE: Patient contacted our office stating that she was concerned because her bandages were satur ated with blood. She describes that she had peek under her bandages and was concerned that there may be infection. The pain has decreased as compared to her pain prior to surgery con sisting of a hardware modification consisting of partial pin excision. OBJECTIVE: She has been disturbing the bandages at the right knee. Adonay wrap were removed. Kerlix rem jona. Removed loss and Xeroform gauze. There is actually no acute drainage. There is a sm all amount of dried bloody drainage but is less than 2 to 3 ML's. These is that is healing beautifully and appropriately. No evidence of complication or infection. Redressed the rig ht knee today Imaging/Studies: No studies to review at this time. Filed Vitals: 02/17/17 1059 Temp: 37.1 C (98.8 F) TempSrc: Temporal Height: 1.6 m (5' 3") Weight: 50.803 kg (112 lb) ASSESSMENT/PLAN: 1.Right knee hardware modification, status postop A. Patient is healing appropriately. There is no evidence of acute complication, bleeding or infection. Band-Aids the right knee today strongly recommended that she refrain from to uching the bandages at all until they are to be removed permanently on Wednesday. Continue w ith pain medication as prescribed. Follow-up will be for first formal postoperative visit f or suture emoval. B. Patient is advised that if they have any questions, comments or concerns to contact our office. Electronically signed by: Vj Rutherford PA-C 02/17/2017 13:52 This note was dictated using the [employer] voice recognition system. Minor errors in grammar may have occurred. documented in th is encounter Plan of Treatment Not on filedocumented as of this encounter Visit Diagnoses + + | Diagnosis | + + | S/P orthopedic surgery, follow-up exam - Primary Follow-up examination, following | | other surgery | + + documented in this encounter
--- OUTSIDE RECORDS SUMMARY | ~2019-11-07 | XMS | Encounter Summary ---
Demographics + + + | Address | [address] | | | [place] [address] | + + + | Home Phone | | + + + | Preferred Language | Unknown | + + + | Marital Status | | + + + | Tenriism Affiliation | Unknown | + + + | Race | Unknown | + + + | Ethnic Group | Unknown | + + + Author + + + | Author | [facility] | | | and [place] | + + + | Organization | [facility] | | | and [...] Team Providers + +------+ + | Care Machinist Linotype Name | Role | Phone | + +------+ + PCP | Unavailable | + +------+ + Encounter Details +--------+ + + + + | Date | Type | Department | Care Team | Description | +--------+ + + + + | 06/28/ | Hospital | [facility] | | | | 2006 | Encounter | MED CTR GENERIC OP | | | | | | CONV DEPT [address] | | | | | | [place], | | | | | | [place] [address] | | | | | | [phone] | | | +--------+ + + + [...]
--- OUTSIDE RECORDS SUMMARY | ~2019-11-07 | XMS | Encounter Summary ---
Demographics + + + | Address | [address] | | | [place] [address] | + + + | Home Phone | | + + + | Preferred Language | Unknown | + + + | Marital Status | | + + + | Mormonism Affiliation | Unknown | + + + | Race | Unknown | + + + | Ethnic Group | Unknown | + + + Author + + + | Author | [facility] | | | and [place] | + + + | Organization | [facility] | | | and [...] Team Providers + +------+ + | Care Network Security Consultant Name | Role | Phone | + [...] 2016 | Changes | ORTHOPEDIC SURGERY | Business Services Clerk | | | | | [address] [place] [address] | | | | | | [place] | | | | | | [address] | | | | | | [phone] | | | +--------+ + + + [...]
--- OUTSIDE RECORDS SUMMARY | ~2019-11-07 | XMS | Encounter Summary ---
Demographics + + + | Address | [address] | | | [place] [address] | + + + | Home Phone | | + + + | Preferred Language | Unknown | + + + | Marital Status | | + + + | Yarsani Affiliation | Unknown | + + + | Race | Unknown | + + + | Ethnic Group | Unknown | + + + Author + + + | Author | [facility] | | | and [place] | + + + | Organization | [facility] | | | and [place] [...] Providers + +------+ + | Care Sports Book Writer Name | Role | Phone | + [...] | | | | [facility] [address] | [address] [facility] | | | | | [place], [place] | [place] [address] | | | | | [address] | [phone] | | | | | [phone] | | | +--------+ + + + [...] + | ropivacaine (NAROPIN) 2 mg/mL | 126,823.5 mL | | (0.2%) injection 400 mL [...] + + + | Perine | 12/15/16; 1245 (created via | 12/15/16 1246 by | [...] | 1:200,000 (PF) injection PRN, | | 17 12:20 | | | | | Other, [...]
--- OUTSIDE RECORDS SUMMARY | ~2019-11-07 | XMS | Encounter Summary ---
Demographics + + + | Address | [address] | | | [place] [address] | + + + | Home Phone | | + + + | Preferred Language | Unknown | + + + | Marital Status | | + + + | Jainism Affiliation | Unknown | + + + | Race | Unknown | + + + | Ethnic Group | Unknown | + + + Author + + + | Author | [facility] | | | and [place] | + + + | Organization | [facility] | | | and [place] [...] Team Providers + +------+ + | Care Assessment Consultant Name | Role | Phone | [...] [address] [place] | | | | | [phone] | [place] [address] | | +--------+ + + + + [...]
--- OUTSIDE RECORDS SUMMARY | ~2019-11-07 | XMS | Encounter Summary ---
Demographics + + + | Address | [address] | | | [place] [address] | + + + | Home Phone | | + + + | Preferred Language | Unknown | + + + | Marital Status | | + + + | Cheondoism Affiliation | Unknown | + + + | Race | Unknown | + + + | Ethnic Group | Unknown | + + + Author + + + | Author | [facility] | | | and [place] | + + + | Organization | [facility] | | | and [...] + +------+ + | Care Director Of Reservations Name | Role | Phone | + [...] + + | 02/17/ | Clinical | [facility] | Vj Rutherford | S/P orthopedic | | 2017 | Support | ORTHOPEDIC SURGERY | [address] | surgery, follow-up | | | | [address] [facility] | [address] | exam (Primary Dx) | | | | [place] | [place] [address] | | | | | [address] | [phone] | | | | | [phone] | | | +--------+ + + + [...] 13:52 This note was dictated using the [employer] voice recognition system. Minor errors in grammar may have occurred. documented in th is encounter Plan of Treatment Not on filedocumented as of this encounter Visit Diagnoses + + | Diagnosis | + + | S/P orthopedic surgery, follow-up exam - Primary Follow-up examination, following | | other surgery | + + documented in this encounter
--- OUTSIDE RECORDS SUMMARY | ~2019-11-07 | XMS | Encounter Summary ---
Demographics + + + | Address | [address] | | | [place] [address] | + + + | Home Phone | | + + + | Preferred Language | Unknown | + + + | Marital Status | | + + + | Baptism Affiliation | Unknown | + + + | Race | Unknown | + + + | Ethnic Group | Unknown | + + + Author + + + | Author | [facility] | | | and [place] | + + + | Organization | [facility] | | | and [...] Team Providers + +------+ + | Care Construction Consultant Name | Role | Phone | [...] + + | 02/15/ | Emergency | [facility] | [place], | Closed displaced | | 2017 | | MED CTR OR INTRA OP | John Vazquez MD [address] | fracture of right | | | | [address] | [address] [place] | patella with routine | | | | [place], [place] | [place] [address] | healing, | | | | [address] | [phone] | unspecified fracture | | | | [phone] | | morphology, | | | | | Tyler Florian | subsequent encounter | | | | | MD Carol [address] | (Primary Dx); | | | | | [place] | Encounter for | | | | | [id number] | Jamila wire | | | | [...] mg of acetaminophen (Tylenol) per day. Hydrocodone-acetaminophen (Lincoln ) and Oxycodone-acetaminophen (Percocet) have 325 mg [...] for comparison only - no result from [facility]. | [facility] | + + + [...] for comparison only - no result from [facility]. | [facility] | + + + [...]
--- OUTSIDE RECORDS SUMMARY | ~2019-11-07 | XMS | Encounter Summary ---
Demographics + + + | Address | [address] | | | [place] [address] | + + + | Home Phone | | + + + | Preferred Language | Unknown | + + + | Marital Status | | + + + | Mu-Ism Affiliation | Unknown | + + + | Race | Unknown | + + + | Ethnic Group | Unknown | + + + Author + + + | Author | [facility] | | | and [place] | + + + | Organization | [facility] | | | and [place] | [...] Team Providers + +------+ + | Care Knitting Demonstrator Name | Role | Phone | + +------+ + | Tomer Wills MD | PCP | | + +------+ + Encounter Details +--------+ + + + + | Date | Type | Department | Care Team | Description | +--------+ + + + + | 07/06/ | Hospital | [facility] | Tyler Florian | SOB (shortness of | | 2017 | Encounter | MED CTR [facility] X[facility] | MD Carol [address] | breath) on exertion; | | | | [address] [place] | [place] | Secondary | | | | [place] | [address] | hypertension; | | | | [address] | | Hyperlipidemia, | | | | [phone] | | unspecified | | | | [...] [address] | [place] | [phone] | | [facility] | | [address] | | | - IMAGING | | [...]
--- OUTSIDE RECORDS SUMMARY | ~2019-11-07 | XMS | Encounter Summary ---
Demographics + + + | Address | [address] | | | [place] [address] | + + + | Home Phone | | + + + | Preferred Language | Unknown | + + + | Marital Status | | + + + | Buddhism Affiliation | Unknown | + + + | Race | Unknown | + + + | Ethnic Group | Unknown | + + + Author + + + | Author | [facility] | | | and [place] | + + + | Organization | [facility] | | | and [...] + +------+ + | Care Director Of Flight Operations Name | Role | Phone | + [...] + + | 09/10/ | Telephone | [facility] | Lance Aguiar MD | Appointment | | 2015 | | GASTROENTEROLOGY | [address], [place] | (egd,colon) | | | | [address] [place] | [address] [place], [place] | | | | | [address] [place], [place] | [address] | | | | | [address] | | | | | | [phone] | | | +--------+ + + + [...]
--- OUTSIDE RECORDS SUMMARY | ~2019-11-07 | XMS | Encounter Summary ---
Demographics + + + | Address | [address] | | | [place] [address] | + + + | Home Phone | | + + + | Preferred Language | Unknown | + + + | Marital Status | | + + + | Moravian Affiliation | Unknown | + + + | Race | Unknown | + + + | Ethnic Group | Unknown | + + + Author + + + | Author | [facility] | | | and [place] | + + + | Organization | [facility] | | | and [place] | [...] Team Providers + +------+ + | Care Consumer Affairs Manager Name | Role | Phone | [...] 2016 | Changes | ORTHOPEDIC SURGERY | Secretary Of Police | | | | | [address] [place] [address] | | | | | | [place] | | | | | | [address] | | | | | | [phone] | | | +--------+ + + + [...]
--- OUTSIDE RECORDS SUMMARY | ~2019-11-07 | XMS | Clinical Summary ---
Demographics + + + | Address | [address] | | | [place] [address] | + + + | Home Phone | | + + + | Preferred Language | Unknown | + + + | Marital Status | | + + + | Judaism Affiliation | Unknown | + + + | Race | Unknown | + + + | Ethnic Group | Unknown | + + + Author + + + | Author | [facility] | | | and [place] | + + + | Organization | [facility] | | | and [place] [...] Team Providers + +------+ + | Care Store Loss Prevention Manager Name | Role | Phone | + +------+ + | Tomer Wills MD | PCP | | + +------+ + Allergies + [...] | | | | e | | (FLCARL GUMMIES | day. | | | | | | | OMEGA-3 DHA PO) | | | | | | | + + + +---------+------+------+-------+ | ondansetron | Take 1 tablet by | 2 | 0 | 10/ | | Activ | | (ZOFRAN) 4 mg tablet | mouth as needed for | tablet | | /20 | | e | | | Nausea. [...] | | | + + + +---------+------+------+-------+ +---+ + | | Additional | | | informationPatient | | | taking differently: | | | 4 mg Oral EVERY 12 | | | HOURS PRN, Nausea, | | | Begin bowel prep, if | | | nausea, stop prep, | | | take med and restart | | | prep 1 hr later., | | | Reported on | | | 03/30/2017 10:22 AM | +---+ + + + +--------+---+------+---+-------+ | diazePAM (VALIUM) | Take 5 mg by mouth | | 0 | 03/2 | | Activ | | 5 mg tablet | as needed. | | | 320 | | e | | | | | | 17 | | | + + +--------+---+------+---+-------+ | zolpidem (AMBIEN | Take 6.25 mg by | | 0 | 04/0 | | Activ | | CR) 6.25 mg CR | mouth nightly as | | | /20 | | e | | tablet | needed for Sleep. | | | 17 | | | + + +--------+---+------+---+-------+ | ibuprofen (ADVIL, | Take 200 mg by mouth | | 0 | | | Activ | | MOTRIN) 200 mg | every 8 hours as | | | | | e | | tablet | needed for Pain. | | | | | | + + +--------+---+------+---+-------+ | estradiol | Patch 0.5mg, twice | | 0 | | | Activ | | (VIVELLE-DOT) 0.025 | per week. | | | | | e | | MG/24HR | | | | | | | + + +--------+---+------+---+-------+ | metoprolol | Take 12.5 mg by | | 0 | | | Activ | | tartrate (LOPRESSOR) | mouth 2 times daily. | | | | | e | | 25 mg tablet | | | | | | | + + +--------+---+------+---+-------+ | | Take 1 tablet by | | 0 | | | Activ | | acetaminophen-codein | mouth every 12 hours | | | | | e | | e (TYLENOL #3) | as needed for Pain. | | | | | | | 300-30 mg per tablet | | | | | | | + + +--------+---+------+---+-------+ | aspirin 325 mg | Take 1 tablet by | 30 | 0 | | | Activ | | tablet | mouth Daily. | tablet | | | | e | + + +--------+---+------+---+-------+ Active Problems + + + | Problem [...] + | H/O RIGHT Ankle fracture - 2006 | 02/15/2017 | + + + | [...] | | + + + + + Plan of Treatment + + + + + | Health Maintenance | Due Date | Last Done | Comments | + + + + + | Vaccine: | | | | | Dtap/Tdap/Td (1 - | 6 | | | | Tdap) | | | | + + + + + | Vaccine: Zoster (1 | | | | | of 2) | 5 | | | + + + + + | Breast Cancer | | | | | Screening | 0 | | | + + + + [...] +--------+ +---------+--------+ | PACIFICSOURCE | PACIFI | [phone] | 06/08/20 | [phone] | | Indemn | | | CSOURC | | 17-Pre | 2 | | ity | | | E | | sent | | | | | | ADMIN | | | | | | | | PREF | | | | | | | | PSN | | | | | | + +--------+ +--------+ +---------+--------+ | GEHA | GEHA | [id number] | | [phone] | | PPO | | | AETNA [...] Person | Self | [birth year] | [address] | | [place] | al/Fam | | 1954 | [phone] | [place] [address] | | | vivien | | | 9 (Home) | | + +--------+ +--------+ + + Advance Directives + + + + + | Type | Date Recorded | Patient | Explanation | | | | Board Stacker | | + + + + + | Power of | | | | | Power Machine Operator | | | | + + + + + | Advance | 07/14/2017 9:32 | | | | Directive | AM | | | + + + + + + + + + + | Code Status | Date | Date | Comments | | | Activated | Inactivated | | + + + + + | Full Code | 07/14/2017 | 07/14/2017 | | | | 9:34 AM | 2:18 PM | | + + + + + + + + +---+ | | | | | + + + +---+ | Full Code | 02/15/2017 | 02/15/2017 | | | | 4:08 PM | 8:05 PM | | + + + +---+
--- OUTSIDE RECORDS SUMMARY | ~2019-11-07 | XMS | Encounter Summary ---
Demographics + + + | Address | [address] | | | [place] [address] | + + + | Home Phone | | + + + | Preferred Language | Unknown | + + + | Marital Status | | + + + | Orthodoxy Affiliation | Unknown | + + + | Race | Unknown | + + + | Ethnic Group | Unknown | + + + Author + + + | Author | [facility] | | | and [place] | + + + | Organization | [facility] | | [...] Team Providers + +------+ + | Care Ethanol Operations Manager Name | Role | Phone | + +------+ + PCP | Unavailable | + +------+ + Encounter Details +--------+ + + + + | Date | Type | Department | Care Team | Description | +--------+ + + + + | 05/05/ | Hospital | [facility] | Conversion | Pain | | 2014 | Encounter | [address] | Transaction, | | | | | [address] | Provider Unknown | | | | | [place], [place] | [phone] | | | | | [address] | | | | | | [phone] | | | +--------+ + + + [...] ARM < 1 HOUR | Routin | 09/23/2012 | | Results for this | | | e | 4:39 AM | | procedure are in the | | | | PST | | results section. | + +--------+ + + + documented in this encounter Results [place] C-Arm < 1 Hour (09/23/2012 4:39 AM PST) + + | Specimen | [...]
--- OUTSIDE RECORDS SUMMARY | ~2019-11-07 | XMS | Encounter Summary ---
Demographics + + + | Address | [address] | | | [place] [address] | + + + | Home Phone | | + + + | Preferred Language | Unknown | + + + | Marital Status | | + + + | Sikhism Affiliation | Unknown | + + + | Race | Unknown | + + + | Ethnic Group | Unknown | + + + Author + + + | Author | [facility] | | | and [place] | + + + | Organization | [facility] | | | and [place] [...] Team Providers + +------+ + | Care Collection Systems Modeler Name | Role | Phone | + +------+ + PCP | Unavailable | + +------+ + Encounter Details +--------+ + + + + | Date | Type | Department | Care Team | Description | +--------+ + + + + | 05/05/ | Hospital | [facility] | Conversion | Pain | | 2014 | Encounter | [address]VERSION [address] | Transaction, | | | | | [address] | Provider Unknown | | | | | [place], [place] | [phone] | | | | | [address] | | | | | | [phone] | | | +--------+ + + + [...] ARM < 1 HOUR | Routin | 09/26/2013 | | Results for this | | | e | 4:39 AM | | procedure are in the | | | | PST | | results section. | + +--------+ + + + documented in this encounter Results [place] C-Arm < 1 Hour (09/26/2013 4:39 AM PST) + + | Specimen [...]
--- OUTSIDE RECORDS SUMMARY | ~2019-11-07 | XMS | Encounter Summary ---
Demographics + + + | Address | [address] | | | [place] [address] | + + + | Home Phone | | + + + | Preferred Language | Unknown | + + + | Marital Status | | + + + | Caodaism Affiliation | Unknown | + + + | Race | Unknown | + + + | Ethnic Group | Unknown | + + + Author + + + | Author | [facility] | | | and [place] | + + + | Organization | [facility] | | | and [...] Team Providers + +------+ + | Care Personal Fitness Trainer Name | Role | Phone | + [...] + + | 08/05/ | Office | [facility] | Vj Rutherford | S/P orthopedic | | 2017 | Visit | ORTHOPEDIC SURGERY | [address] | surgery, follow-up | | | | [address] [facility] | [facility] | exam (Primary Dx) | | | | [place] | [place] [address] | | | | | [address] | [phone] | | | | | [phone] | | | +--------+---------+ + + + [...] 13:42 This note was dictated using the [employer] voice recognition system. Minor errors in grammar may have occurred. documented in t his encounter Plan of Treatment Not on filedocumented as of this encounter Visit Diagnoses + + | Diagnosis | + + | S/P orthopedic surgery, follow-up exam - Primary Follow-up examination, following | | other surgery | + + documented in this encounter
--- OUTSIDE RECORDS SUMMARY | ~2019-11-07 | XMS | Encounter Summary ---
Demographics + + + | Address | [address] | | | [place] [address] | + + + | Home Phone | | + + + | Preferred Language | Unknown | + + + | Marital Status | | + + + | Lutheran Affiliation | Unknown | + + + | Race | Unknown | + + + | Ethnic Group | Unknown | + + + Author + + + | Author | [facility] | | | and [place] | + + + | Organization | [facility] [...] Team Providers + +------+ + | Care Videogame Tester Name | Role | Phone | + [...] 2016 | Changes | ORTHOPEDIC SURGERY | [place] | | | | | [address] [place] [address] | | | | | | [place] | | | | | | [address] | | | | | | [phone] | | | +--------+ + + + [...]
--- OUTSIDE RECORDS SUMMARY | ~2019-11-07 | XMS | Encounter Summary ---
Demographics + + + | Address | [address] | | | [place] [address] | + + + | Home Phone | | + + + | Preferred Language | Unknown | + + + | Marital Status | | + + + | Cheondoism Affiliation | Unknown | + + + | Race | Unknown | + + + | Ethnic Group | Unknown | + + + Author + + + | Author | [facility] | | | and [place] | + + + | Organization | [facility] | | | and [...] Team Providers + +------+ + | Care Financial Legal Assistant Name | Role | Phone | + [...] OR INTRA OP | MD Carol [address] [facility] | Right Knee | | | | [address] | [place] | | | | | [place] | [address] | | | | | [address] | | | | | | [phone] | | | +--------+---------+ + + + [...] mg of acetaminophen (Tylenol) per day. Hydrocodone-acetaminophen ([place] ) and Oxycodone-acetaminophen (Percocet) have 325 mg acetaminophen per tablet. Regular [facility] acetaminophen is 325 mg per tablet. Extra [...] for comparison only - no result from [facility]. | [facility] | + + + [...]
--- OUTSIDE RECORDS SUMMARY | ~2019-11-07 | XMS | Encounter Summary ---
Demographics + + + | Address | [address] | | | [place] [address] | + + + | Home Phone | | + + + | Preferred Language | Unknown | + + + | Marital Status | | + + + | Caodaism Affiliation | Unknown | + + + | Race | Unknown | + + + | Ethnic Group | Unknown | + + + Author + + + | Author | [facility] | | | and [place] | + + + | Organization | [facility] | | | and [place] [...] Team Providers + +------+ + | Care Judicial Administrative Assistant Name | Role | Phone | + +------+ + | Tomer Wills MD | PCP | | + +------+ + Encounter Details +--------+ + + + + | Date | Type | Department | Care Team | Description | +--------+ + + + + | 12/16/ | Anesthesia | [facility] | John Munoz | | | 2017 | Event | [facility] | Oscar CORDOBA MD [address] | | | | | [address] [place] | [address] [place] | | | | | [place], [place] | [place] [address] | | | | | [address] | [phone] | | | | | [phone] | | | +--------+ + + + + Anesthesia Record + + + + + | Procedure Name | Responsible | Anesthesia Start | Anesthesia Stop Time | | | Anesthesiologist | Time | | + + + + + | Follow up phone call | | | | + + + + + + + | No events on file. | + + +------+ | Meds | +------+ + + + No medications | on file. | + + + + + | No agents on file. | + + + + | No blood administrations on file. | + + + + | No LDAs on file. | + + documented in this encounter Social [...]
--- OUTSIDE RECORDS SUMMARY | ~2019-11-07 | XMS | Encounter Summary ---
Demographics + + + | Address | [address] | | | [place] [address] | + + + | Home Phone [...] | Organization | [facility] | | | and [place] [...] Team Providers + +------+ + | Care Proof Tester Name | Role | Phone | [...] | | | | | [address] [place] | [address] [place] | | | | | [place], [place] | [place] [address] | | | | | [address] | [phone] | | | | | [phone] | | | +--------+ + + + [...]
--- OUTSIDE RECORDS SUMMARY | ~2019-11-07 | XMS | Encounter Summary ---
Demographics + + + | Address | [address] | | | [place] [address] | + + + | Home Phone | | + + + | Preferred Language | Unknown | + + + | Marital Status | | + + + | Synagogue Affiliation | Unknown | + + + | Race | Unknown | + + + | Ethnic Group | Unknown | + + + Author + + + | Author | [facility] | | | and [place] | + + + | Organization | [facility] | | | and [place] [...] Team Providers + +------+ + | Care Representative Government Relations Name | Role | Phone | + [...] + | 09/23/ | Telephone | [facility] | Lance Aguiar MD | Colonoscopy | | 2015 | | GASTROENTEROLOGY | [address], [place] | | | | | [address] [facility] | [address] [place] | | | | | [address] [place] | [address] | | | | | [address] | | | | | | [phone] | | | +--------+ + + + [...]
--- OUTSIDE RECORDS SUMMARY | ~2019-11-07 | XMS | Encounter Summary ---
Demographics + + + | Address | [address] | | | [place] [address] | + + + | Home Phone | | + + + | Preferred Language | Unknown | + + + | Marital Status | | + + + | Buddhism Affiliation | Unknown | + + + | Race | Unknown | + + + | Ethnic Group | Unknown | + + + Author + + + | Author | [facility] | | | and [place] | + + + | Organization | [facility] | | | and [place] [...] Team Providers + +------+ + | Care Instructor Of Nursing Name | Role | Phone | + [...] | ORTHOPEDIC SURGERY | MD Chanda Medina [facility] | reduction internal | | | | [address] [place] [address] | [place] | fixation) fracture | | | | [place] | [address] | (Primary Dx) | | | | [address] | | | | | | [phone] | | | +--------+---------+ + + + [...] one K wire. She has been attending chemist physical apy faithfully and has regained a functional [...]
--- OUTSIDE RECORDS SUMMARY | ~2019-11-07 | XMS | Clinical Summary ---
Demographics + + + | Address | [address] | | | [place] [address] | + + + | Home Phone | | + + + | Preferred Language | Unknown | + + + | Marital Status | | + + + | Gnosticist Affiliation | Unknown | + + + | Race | Unknown | + + + | Ethnic Group | Unknown | + + + Author + + + | Author | [facility] | | | and [place] | + + + | Organization | [facility] | | | and [place] [...] Team Providers + +------+ + | Care Foreign Languages Department Chair Name | Role | Phone | + [...] +--------+ +---------+--------+ | [employer] | PACIFI | [id number] | 06/08/20 | [phone] | | Indemn | | | CSOURC | | 17-Pre | 2 | | ity | | | E | | sent | | | | | | ADMIN | | | | | | | | PREF | | | | | | | | PSN | | | | | | + +--------+ +--------+ +---------+--------+ | GEHA | GEHA | [id number] | | [phone] | | PPO | | | AETNA [...] Person | Self | [birth year] | [address] | | Gabriella | al/Fam | | 1954 | [phone] | [place] [address] | | | vivien | | | 9 (Home) | | + +--------+ +--------+ + + Advance Directives + + + + + | Type | Date Recorded | Patient | Explanation | | | | Rag Cutting Machine Feeder | | + + + + + | Power of | | | | | Custodial Officer | | | | + + + [...]
--- OUTSIDE RECORDS SUMMARY | ~2019-11-07 | XMS | Encounter Summary ---
Demographics + + + | Address | [address] | | | [place] [address] | + + + | Home Phone | | + + + | Preferred Language | Unknown | + + + | Marital Status | | + + + | Amish Affiliation | Unknown | + + + | Race | Unknown | + + + | Ethnic Group | Unknown | + + + Author + + + | Author | [facility] | | | and [place] | + + + | Organization | [facility] | | | and [place] [...] Team Providers + +------+ + | Care Cuff Stitcher Name | Role | Phone | + [...] + + | 09/30/ | Telephone | [facility] | Lance Aguiar MD | Insurance | | 2015 | | GASTROENTEROLOGY | [address] [place] | Authorization | | | | [address] [facility] | [address] [place] | | | | | [address] [place] | [address] | | | | | [address] | | | | | | [phone] | | | +--------+ + + + [...]
--- OUTSIDE RECORDS SUMMARY | ~2019-11-07 | XMS | Encounter Summary ---
Demographics + + + | Address | [address] | | | [place] [address] | + + + | Home Phone | | + + + | Preferred Language | Unknown | + + + | Marital Status | | + + + | Voodoo Affiliation | Unknown | + + + | Race | Unknown | + + + | Ethnic Group | Unknown | + + + Author + + + | Author | [facility] | | | and [place] | + + + | Organization | [facility] | | | and [place] [...] Team Providers + +------+ + | Care Coagulation Operator Name | Role | Phone | [...] + | 03/02/ | Telephone | [facility] | Tyler Florian | Appointment Question | | 2016 | | ORTHOPEDIC SURGERY | MD Carol [address] [facility] | | | | | [address] [facility] | [place], [place] | | | | | [place], [place] | [address] | | | | | [address] | | | | | | [phone] | | | +--------+ + + + [...]
--- OUTSIDE RECORDS SUMMARY | ~2019-11-07 | XMS | Encounter Summary ---
Demographics + + + | Address | [address] | | | [place] [address] | + + + | Home Phone | | + + + | Preferred Language | Unknown | + + + | Marital Status | | + + + | Presybeterian Affiliation | Unknown | + + + | Race | Unknown | + + + | Ethnic Group | Unknown | + + + Author + + + | Author | [facility] | | | and [place] | + + + | Organization | [facility] | | | and [place] | [...] Providers + +------+ + | Care Manager Radiation Name | Role | Phone | + [...] + + | 08/18/ | Office | [facility] | Vj Rutherford | S/P orthopedic | | 2017 | Visit | ORTHOPEDIC SURGERY | [address] | surgery, follow-up | | | | [address] [facility] | [facility] | exam (Primary Dx); | | | | [place] | [facility] [place] [address] | [place]hiscence of | | | | [address] | [phone] | operative wound, | | | | [phone] | | initial encounter | +--------+---------+ + [...] incision site did dehisce. She went to [facility] where the emergency department physician irrigated the [...] 15:06 This note was dictated using the [email or web address] recognition system. Minor errors in grammar may [...]
--- OUTSIDE RECORDS SUMMARY | ~2019-11-07 | XMS | Encounter Summary ---
Demographics + + + | Address | [address] | | | [place] [address] | + + + | Home Phone [...] [facility] | | | and [...] Team Providers + +------+ + | Care Reworker Name | Role | Phone | + +------+ + PCP | Unavailable | + +------+ + Encounter Details +--------+ + + + + | Date | Type | Department | Care Team | Description | +--------+ + + + + | 07/14/ | Hospital | [facility] | Familia Alonso, | | | 2006 - | Encounter | MED CTR GENERIC IP | MD [address] [facility] | | | | | CONV DEPT [address] | [place], [place] | | | 07/19/ | | [place], | [address] | | | 2005 | | [place] [address] | | | | | | [phone] | | | +--------+ + + + [...]
--- OUTSIDE RECORDS SUMMARY | ~2019-11-07 | XMS | Encounter Summary ---
Demographics + + + | Address | [address] | | | [place] [address] | + + + | Home Phone [...] | Organization | [facility] [...] Team Providers + +------+ + | Care Gifted Teacher Name | Role | Phone | + +------+ + PCP | Unavailable | + +------+ + Encounter Details +--------+ + + + + | Date | Type | Department | Care Team | Description | +--------+ + + + + | 07/13/ | Hospital | [facility] | Familia Alonso, | | | 2006 - | Encounter | MED CTR GENERIC IP | MD [address] [facility] | | | | | CONV DEPT [address] | [place], [place] | | | 07/14/ | | [place], | [address] | | | 2005 | | [place] [address] | | | | | | [phone] | | | +--------+ + + + [...]
--- OUTSIDE RECORDS SUMMARY | ~2019-11-07 | XMS | Encounter Summary ---
Demographics + + + | Address | [address] | | | [place] [address] | + + + | Home Phone | | + + + | Preferred Language | Unknown | + + + | Marital Status | | + + + | Alevism Affiliation | Unknown | + + + | Race | Unknown | + + + | Ethnic Group | Unknown | + + + Author + + + | Author | [facility] | | | and [place] | + + + | Organization | [facility] | | | and [place] | [...] Team Providers + +------+ + | Care Medical Records Library Professor Name | Role | Phone | + +------+ + PCP | Unavailable | + +------+ + Encounter Details +--------+ + + + + | Date | Type | Department | Care Team | Description | +--------+ + + + + | 04/23/ | Hospital | [facility] | | | | 2000 | Encounter | MED CTR EMERGENCY | | | | | | CENTER [address] | | | | | | [place], [place] | | | | | | [address] | | | | | | [phone] | | | +--------+ + + + [...]
--- OUTSIDE RECORDS SUMMARY | ~2019-11-07 | XMS | Encounter Summary ---
Demographics + + + | Address | [address] | | | [place] [address] | + + + | Home Phone [...] | [facility] | | | and [place] [...] Team Providers + +------+ + | Care Block And Case Maker Name | Role | Phone | + +------+ + | Tomer Wills MD | PCP | | + +------+ + Encounter Details +--------+ + + + + | Date | Type | Department | Care Team | Description | +--------+ + + + + | 05/28/ | Orders Only | [facility] | Tyler Florian | S/P ORIF (open | | 2017 | | ORTHOPEDIC SURGERY | MD Carol [address] [facility] | reduction internal | | | | [address] [facility] | BEHZAD RUIZ MD | fixation) fracture | | | | [place], [place] | [address] | (Primary Dx) | | | | [address] | | | | | | [phone] | | | +--------+ + + + [...] Primary | + + documented in this encounter"
--- OUTSIDE RECORDS SUMMARY | ~2019-11-07 | XMS | Encounter Summary ---
Demographics + + + | Address | [email or web address] | | | [place] [address] | + + + | Home Phone | | + + + | Preferred Language | Unknown | + + + | Marital Status | | + + + | Restoration Affiliation | Unknown | + + + | Race | Unknown | + + + | Ethnic Group | Unknown | + + + Author + + + | Author | [facility] | | | and [place] | + + + | Organization | [facility] | | | and [place] [...] Team Providers + +------+ + | Care Asphalt Roller Person Name | Role | Phone | + [...] + + | 07/06/ | Office | [facility] | Tyler Florian | SOB (shortness of | | 2016 | Visit | ORTHOPEDIC SURGERY | MD Carol [address] | breath) on exertion | | | | [address] | [place] | (Primary Dx); | | | | [place], [place] | [address] | Secondary | | | | [address] | | hypertension; | | | | [phone] | | Hyperlipidemia, | | | | [...] ST. | [address] | [place], [place] | [phone] | | [facility] | | [address] | | | - IMAGING | | [...] | | | | g/dL | [facility] | | | | | | MEDICAL [...] [address] | [place] | [phone] | | [facility] | | [address] | | | - LABORATORY | | [...] | | | | MAURICE HUERTA MD ([id number]) | | | | | | on [...]
--- OUTSIDE RECORDS SUMMARY | ~2019-11-07 | XMS | Encounter Summary ---
Demographics + + + | Address | [address] | | | [place] [address] | + + + | Home Phone | | + + + | Preferred Language | Unknown | + + + | Marital Status | | + + + | Advent Affiliation | Unknown | + + + | Race | Unknown | + + + | Ethnic Group | Unknown | + + + Author + + + | Author | [facility] | | | and [place] | + + + | Organization | [facility] | | | and [place] [...] Team Providers + +------+ + | Care Plastic Bubble Packer Name | Role | Phone | + [...] 2016 | Changes | ORTHOPEDIC SURGERY | Coat Maker | | | | | [address] [place] [address] | | | | | | [place] | | | | | | [address] | | | | | | [phone] | | | +--------+ + + + [...]
--- OUTSIDE RECORDS SUMMARY | ~2019-11-07 | XMS | Encounter Summary ---
Demographics + + + | Address | [address] | | | [place] [address] | + + + | Home Phone | | + + + | Preferred Language | Unknown | + + + | Marital Status | | + + + | Jain Affiliation | Unknown | + + + | Race | Unknown | + + + | Ethnic Group | Unknown | + + + Author + + + | Author | [facility] | | | and [place] | + + + | Organization | [facility] | | | and [...] Team Providers + +------+ + | Care Telecommunications Network Engineer Name | Role | Phone | [...] | +--------+ + + + + | 04/09/ | Telephone | [facility] | Tyler Florian | Jen | | 2016 | | ORTHOPEDIC SURGERY | MD Carol [address] [facility] | | | | | [address] [facility] | [place] | | | | | [place] | [address] | | | | | [address] | | | | | | [phone] | | | +--------+ + + + [...]
--- OUTSIDE RECORDS SUMMARY | ~2019-11-07 | XMS | Encounter Summary ---
Demographics + + + | Address | [address] | | | [place] [address] | + + + | Home Phone [...] Organization | [facility] | | [...] Team Providers + +------+ + | Care Operator Prefinish Name | Role | Phone | + [...] + + | 02/25/ | Telephone | [facility] | Lance Aguiar MD | GI Problem | | 2016 | | GASTROENTEROLOGY | [address] [place] | | | | | [address] [facility] | [address] [place] | | | | | [address] [place], [place] | [address] | | | | | [address] | | | | | | [phone] | | | +--------+ + + + [...]
--- OUTSIDE RECORDS SUMMARY | ~2019-11-07 | XMS | Encounter Summary ---
Demographics + + + | Address | [address] | | | [place] [address] | + + + | Home Phone | | + + + | Preferred Language | Unknown | + + + | Marital Status | | + + + | Scientologist Affiliation | Unknown | + + + | Race | Unknown | + + + | Ethnic Group | Unknown | + + + Author + + + | Author | [facility] | | | and [place] | + + + | Organization | [facility] | | | and [...] Team Providers + +------+ + | Care Supervisor Bleach Plant Name | Role | Phone | + [...] [address] | | | | | [place], [place] | [place] [address] | | | | | [address] | [phone] | | | | | [phone] | | | +--------+ + + + [...] Performed At | + + + | [id number] | | | Page 1 RADIOLOGY | | | / | | | O/P [facility] | | | NAME: [place] [address] | | | | | | | | | DATE OF : 1955 ORDER NUMBER: [id number] | | | EXAM DATE/TIME: 06/10/2009 01:10 [...] A A | | | 12:58 P [facility]/surgical specialty hospital-coordinated hlth/[id number]/ cc: DENNISE MARI MD CHRISTIANO | | | MD JOSEFINA REFERRED SELF AVNI [facility], | | | MD | | + + + + + | Procedure Note | + + | Taurus Boles - 07/03/2019 5:13 AM PDT | | [id number] Page 1 | | RADIOLOGY / | | O/P | | [facility] NAME: JONELLE VERA | | [place] [address] | | | | DATE OF : 1955 | | | | ORDER NUMBER: [id number] | | EXAM DATE/TIME: 06/10/2009 01:10 P [...] | A | | P | | [facility] hlth/[id number]/ | | cc: DENNISE MARI MD | | CHRISTIANO ROCHA MD | | REFERRED SELF | | AVNI [facility] MD | + + MRI Thoracic Spine wo Contrast (06/10/2009 12:46 PM PDT) + + | Specimen | + + | | + + + + + | Narrative | Performed At | + + + | [id number] | | | Page 1 RADIOLOGY | | | / | | | O/P [facility] | | | [place]: [place] [address] | | | | | | | | | DATE OF : 1955 ORDER NUMBER: [id number] | | | EXAM DATE/TIME: 06/10/2009 11:14 [...] DT: | | | 06/11/2009 12:48 P JESICA/parvin/[id number]/ cc: DENNISE MARI MD | | | MD AVNI SUAZO MD | | + + + + + | Procedure Note | + + | Taurus Boles - 07/03/2019 5:13 AM PDT | | [id number] Page 1 | | RADIOLOGY / | | O/P | | [facility] NAME: JONELLE VERA | | [place] [address] | | | | DATE OF : 1955 | | | | ORDER NUMBER: [id number] | | EXAM DATE/TIME: 06/10/2009 11:14 A [...] | A | | P | | [facility]/parvin/[id number]/ | | cc: DENNISE MARI MD | | CHRISTIANO ROCHA MD | | AVNI [facility] MD | + + MRI Cervical Spine wo Contrast (06/10/2009 12:31 PM PDT) + + | Specimen | + + | | + + + + + | Narrative | Performed At | + + + | [id number] | | | Page 1 RADIOLOGY | | | / | | | O/P [facility] | | | NAME: [place] [address] | | | | | | | | | DATE OF : 1955 ORDER NUMBER: [id number] | | | EXAM DATE/TIME: 06/10/2009 11:14 A ORDERING PHYSICIAN: | | | AVNI [facility] ORDER DETAIL: [id number] / / [facility] EXAM | | | DESCRIPTION: MRI CERVICAL [...] 07:59 A | | | A P [facility]/parvin/[id number]/ | | | cc: MD CHRISTIANO QUIJANO MD | | | AVNI [facility] MD | | + + + + + | Procedure Note | + + | Taurus Boles - 07/03/2019 5:13 AM PDT | | [id number] Page 1 | | RADIOLOGY / | | O/P | | [facility] NAME: JONELLE VERA | | [place] [address] | | | | DATE OF : 1955 | | | | ORDER NUMBER: [id number] | | EXAM DATE/TIME: 06/10/2009 11:14 A [...] | A | | P | | [facility]//[id number]/ | | cc: DENNISE MARI MD | | CHRISTIANO ROCHA MD | | AVNI [facility] MD | + + documented in this encounter Visit Diagnoses + + | Diagnosis | + + | Cervicalgia | + + documented in this encounter
--- OUTSIDE RECORDS SUMMARY | ~2019-11-07 | XMS | Encounter Summary ---
Demographics + + + | Address | [address] | | | [place] [address] | + + + | Home Phone | | + + + | Preferred Language | Unknown | + + + | Marital Status | | + + + | Mormon Affiliation | Unknown | + + + | Race | Unknown | + + + | Ethnic Group | Unknown | + + + Author + + + | Author | [facility] | | | and [place] | + + + | Organization | [facility] | | | and [...] Providers + +------+ + | Care Physician [facility] Name | Role | Phone | + [...] Early | [address], | | | | | satiety | [place], [place] | [address] [address] | | | | | Personal | [address] [place] | [place], | | | | | history of | [place], [place] | [place] [address] | | | | | other | [address] | Phone: | | | | | specified | Phone: | [phone] | | | | | conditions | [phone] | Fax: | | | | | Procedures | Fax: | [phone] | | | | | [place] | [phone] | | | | | | COLONOSCOPY | | | | | | | FLX DX | | | | | | | W/COLLJ SPEC | | | | | | | WHEN PFRMD | | | | | | | MS | | | | | | | COLONOSCOPY | | | | | | | W/BIOPSY | | | | | | | SINGLE/MULTI | | | | | | | PLE MS | | | | | | | COLSC FLX | | | | | | | W/RMVL OF | | | | | | | TUMOR POLYP | | | | | | | LESION SNARE | | | | | | | TQ MS | | | | | | | ESOPHAGOGAST | | | | | | | RODUODENOSCO | | | | | | | PY TRANSORAL | | | | | | | DIAGNOSTIC | | | | | | | MS EDG | | | | | | | TRANSORAL | | | | | | | BIOPSY | | | | | | | SINGLE/MULTI | | | | | | | PLE MS | | | | | | | ANESTH,INTES | | | | | | | HENRY,SCOPE,L | | | | | | | OW [place] | | | | | | | [...] [place] | | | | | | [place], | [place], [place] | | | | | | [place] | [address] | | | | | | [address] | Phone: | | | | | | Phone: | [phone] | | | | | | [phone] | Fax: | | | | | | Fax: | [phone] | | | | | | [phone] | | +--------+--------+ + + + + Encounter Details +--------+---------+ + + + | Date | Type | Department | Care Team | Description | +--------+---------+ + + + | 08/24/ | Office | [facility] | Lance Aguiar MD | Weight loss (Primary | | 2016 | Visit | GASTROENTEROLOGY | [address] [place] [place] | Dx); History of | | | | [address] [place] | [address] [place] | tachycardia; Change | | | | [address] [place], [place] | [address] | in bowel habit; | | | | [address] | | Nondiabetic | | | | [phone] | | gastroparesis | +--------+---------+ + + [...] be scheduled as an outpatient at her [facility] Portions of this report were transcribed using voice recognition software. Every effort wa s made to ensure accuracy; however, inadvertent computerized radiology aide errors may be pre sent. documented in [...]
--- OUTSIDE RECORDS SUMMARY | ~2019-11-07 | XMS | Encounter Summary ---
Demographics + + + | Address | [address] | | | [place] [address] | + + + | Home Phone | | + + + | Preferred Language | Unknown | + + + | Marital Status | | + + + | Restoration Affiliation | Unknown | + + + | Race | Unknown | + + + | Ethnic Group | Unknown | + + + Author + + + | Author | [facility] | | | and [place] | + + + | Organization | [facility] | | [...] Team Providers + +------+ + | Care Core Carrier Name | Role | Phone | + [...] + + | 06/14/ | Telephone | [facility] | Tyler Florian | Surgery Appointment | | 2017 | | ORTHOPEDIC SURGERY | MD Carol [address] [facility] | | | | | [address] [facility] | [place], [place] | | | | | [place], [place] | [address] | | | | | [address] | | | | | | [phone] | | | +--------+ + + + [...]
--- OUTSIDE RECORDS SUMMARY | ~2019-11-07 | XMS | Encounter Summary ---
Demographics + + + | Address | [address] | | | [place] [address] | + + + | Home Phone | | + + + | Preferred Language | Unknown | + + + | Marital Status | | + + + | Mosque Affiliation | Unknown | + + + | Race | Unknown | + + + | Ethnic Group | Unknown | + + + Author + + + | Author | [facility] | | | and [place] | + + + | Organization | [facility] | | | and [place] [...] Providers + +------+ + | Care Personal Injury Law Specialist Name | Role | Phone | [...] | ORTHOPEDIC SURGERY | MD Carol [address] [facility] | | | | | [address] [facility] | [address] | | | | | [place] | [address] | | | | | [address] | | | | | | [phone] | | | +--------+ + + + [...]
--- OUTSIDE RECORDS SUMMARY | ~2019-11-07 | XMS | Encounter Summary ---
Demographics + + + | Address | [address] | | | [place] [address] | + + + | Home Phone [...] Organization | [facility] | | | and [place] [...] Team Providers + +------+ + | Care Rolling Attendant Name | Role | Phone | + [...] + + | 04/22/ | Office | [facility] | Tyler Wall | S/P orthopedic | | 2016 | Visit | ORTHOPEDIC SURGERY | MD Carol [address] [place] [address] | surgery, follow-up | | | | [address] [facility] | [place] | exam (Primary Dx) | | | | [place] | [address] | | | | | [address] | | | | | | [phone] | | | +--------+---------+ + + + [...] MD - 04/22/2017 12:46 PM PDT [facility] ORTHOPEDIC SURGER Y [address] [facility] [address] OFFICE NOTE TYLER WALL MD Patient: JONELLE VERA Admitting: MR #: [id number] LOC: PT TYPE: Adm Date: 04/22/2017 : [...] primary care physician, Dr. Machelle berrios, in [place], [place]. Today, Jonelle states that her knee [...] therefore will [facility], in late May, for new x-rays of the right knee and tentative scheduling of h ardware removal to follow. TYLER WALL MD Dictated by TYLER WALL MD 04/22/2017 12:46:14 Transcribed on 04/23/2017 05:14:47 by tristen job# [id number] Confirmation #: [id number] cc: ABIEL ROCHA MD enapoorvaon, Tyler Medina MD - 04/22/2017 11:30 AM PDTSee soap note [id number].Electron [email or web address] signed by Tyler Wall MD at 04/22/2017 12:46 PM PDTdocumented in this encoun ter Plan of Treatment Not on filedocumented as of this encounter Visit Diagnoses + + | Diagnosis | + + | S/P orthopedic surgery, follow-up exam - Primary Follow-up examination, following | | other surgery | + + documented in this encounter"
--- OUTSIDE RECORDS SUMMARY | ~2019-11-07 | XMS | Encounter Summary ---
Demographics + + + | Address | [address] | | | [place] [address] | + + + | Home Phone | | + + + | Preferred Language | Unknown | + + + | Marital Status | | + + + | Mandaeism Affiliation | Unknown | + + + | Race | Unknown | + + + | Ethnic Group | Unknown | + + + Author + + + | Author | [facility] | | | and [place] | + + + | Organization | [facility] | | | and [place] [...] Team Providers + +------+ + | Care Commercial Fisher Name | Role | Phone | + +------+ + | Tomer Wills MD | PCP | | + +------+ + Reason for Visit + + + | Reason | Comments | + + + | Gastric Reflux | | + + + Encounter Details +--------+ + + + + | Date | Type | Department | Care Team | Description | +--------+ + + + + | 03/09/ | Telephone | [facility] | Lance Aguiar MD | Gastric Reflux | | 2016 | | GASTROENTEROLOGY | [address] | | | | | [address] | [address] [place], [place] | | | | | [address] [place], [place] | [address] | | | | | [address] | | | | | | [phone] | | | +--------+ + + + [...]
--- OUTSIDE RECORDS SUMMARY | ~2019-11-07 | XMS | Encounter Summary ---
Demographics + + + | Address | [address] | | | [place] [address] | + + + | Home Phone [...] + + | Author | [facility] | | | and [place] | + + + | Organization | [facility] | | | [...] Team Providers + +------+ + | Care Plating Operator Name | Role | Phone | + +------+ + PCP | Unavailable | + +------+ + Encounter Details +--------+ + + + + | Date | Type | Department | Care Team | Description | +--------+ + + + + | 05/05/ | Hospital | [facility] | Conversion | Pain | | 2014 | Encounter | CONVERSION [address] | Transaction, | | | | [address] | Provider Unknown | | | | | [place], [place] | [phone] | | | | | [address] | | | | | | [phone] | | | +--------+ + + + [...]
--- OUTSIDE RECORDS SUMMARY | ~2019-11-07 | XMS | Encounter Summary ---
Demographics + + + | Address | [address] | | | [place] [address] | + + + | Home Phone [...] | Organization | [facility] | | | and [place] [...] Team Providers + +------+ + | Care Pharmacy Clinical Specialist Name | Role | Phone | + +------+ + PCP | Unavailable | + +------+ + Encounter Details +--------+ + + + + | Date | Type | Department | Care Team | Description | +--------+ + + + + | 10/05/ | Hospital | [facility] | Familia Alonso, | | | 2005 | Encounter | MED CTR MP INTRA OP | MD [address] [facility] | | | | | [address] | [place], [place] | | | | | [place], [place] | [address] | | | | | [address] | | | | | | [phone] | | | +--------+ + + + [...]
--- OUTSIDE RECORDS SUMMARY | ~2019-11-07 | XMS | Encounter Summary ---
Demographics + + + | Address | [address] | | | [place] [address] | + + + | Home Phone | | + + + | Preferred Language | Unknown | + + + | Marital Status | | + + + | Buddhism Affiliation | Unknown | + + + | Race | Unknown | + + + | Ethnic Group | Unknown | + + + Author + + + | Author | [facility] | | | and [place] | + + + | Organization | [facility] | [...] Team Providers + +------+ + | Care Ornamental Metalwork Designer Name | Role | Phone | + +------+ + | Tomer Rocha MD | PCP | | + +------+ + Reason for Visit +---------+ + | Reason | Comments | +---------+ + | Post Op | RIGHT KNEE HARDWARE MODIFICATION WITH PARTIAL HARDWARE REMOVAL | | | DOS: 02/15/17 -- ORIF RIGHT PATELLAR FRACTURE WITH DR. PAREKH | | | DOS 12/24/16 | +---------+ + Encounter Details +--------+---------+ + + + | Date | Type | Department | Care Team | Description | +--------+---------+ + + + | 03/30/ | Office | [facility] | Rosa Wall | S/P orthopedic | | 2017 | Visit | ORTHOPEDIC SURGERY | MD Carol [address] [place] [address] | surgery, follow-up | | | | [address] [facility] | [place] | exam (Primary Dx) | | | | [place] | [address] | | | | | [address] | | | | | | [phone] | | | +--------+---------+ + + + [...] + + + + | Temperature | 37.2 C (98.9 F) | 03/30/2017 10:10 AM | | | | | PDT [...] Weight | 50.8 kg (112 lb) | 03/30/2017 10:10 AM | | | | | PDT | | + + + + + | Height | 160 cm (5' 3") | 03/30/2017 10:10 AM | | | | | PDT | | + + + + + | Body Mass Index | 19.84 | 03/30/2017 10:10 AM | | | | | PDT | | + + + + + documented in this encounter Progress Notes Rosa Wall MD - 03/30/2017 7:00 PM PDT [facility]IC SURGER Y [address] [facility] [address] OFFICE NOTE ROSA WALL MD Patient: LILIAN VERA Admitting: MR #: [id number] LOC: PT TYPE: Adm Date: 03/30/2017 : 1955 Lilian returns today for followup of her right patellar fracture that she sustained on 12/2016 and was subsequently treated with hvnugd-df-onysh tension band wiring by Dr. Waylon alonso on 12/14/2016. She was later seen in the emergency room because of hardware related pain and taken to surgery by myself on 02/15/2017 for hardware modification, which included re moval of a protruding prong of a K wire in the region of the superior lateral aspect of her right patella. Today, she comes in walking with a cane. She has been working hard in [employer] therapy and has regained motion from approximately zero to 120 degrees of flexion. She has lost obvious muscle bulk of her quadriceps musculature, but states that she is grad ually regaining her muscle strength. She was reportedly recently seen by Dr. Parekh who f elt that she is making steady progress. ADVICE: Lilian can continue with her rehabilitation. She will likely want her hardware r emoved, but we have advised her that it needs to remain in place for at least 6 months to a [facility] for secure healing of her fracture. She therefore will continue with her rehabilitati on with progressive walking and strengthening and will return for an x-ray check of her ri ght knee in approximately 2 months. ROSA WALL MD Dictated by ROSA WALL MD 03/30/2017 19:00:44 Transcribed on 03/31/2017 16:09:56 by clintg job# [id number] Confirmation #: [id number] cc: TOMER ROCHA MD enapoorvaonRosa MD - 03/30/2017 10:30 AM PDTSee soap note [id number].Electron [email or web address] signed by Rosa Wall MD at 03/30/2017 7:01 PM PDTdocumented in this encoun ter Plan of Treatment Not on filedocumented as of this encounter Visit Diagnoses + + | Diagnosis | + + | S/P orthopedic surgery, follow-up exam - Primary Follow-up examination, following | | other surgery | + + documented in this encounter
--- OUTSIDE RECORDS SUMMARY | ~2019-11-07 | XMS | Encounter Summary ---
Demographics + + + | Address | [address] | | | [place] [address] | + + + | Home Phone [...] + | Organization | [facility] | | | and [...] Providers + +------+ + | Care Manager Strategic Development Name | Role | Phone | + [...] + + + + | 12/15/ | Emergency | [facility] | Jose Angel Forbes | Post-op pain | | 2017 | | [facility] EMER[facility]Y | MD John [address] | (Primary Dx) | | | | CENTER [address] | [facility] | | | | | [address] [place] [address] | [place] [address] | | | | | [address] | [phone] | | | | | [phone] | | | +--------+ + + + [...] + + + | Blood Pressure | 106/68 | 12/15/2016 12:58 PM | | | | | PST | | + + + + + | Pulse | 90 | 12/15/2016 1:00 PM | | | | | PST | | + + + + + | Temperature | 36.7 C (98 F) | 12/15/2016 10:48 AM | | | | | PST | | + + + + + | Respiratory Rate | 14 | 12/15/2016 12:50 PM | | | | | PST | | + + + + + | Oxygen Saturation | 96% | 12/15/2016 1:00 PM | | | | | PST | | + + + + + | Inhaled Oxygen | - | - | | | Concentration | | | | + + + + + | Weight | 50.8 kg (112 lb) | 12/15/2016 10:48 AM | | | | | PST | | + + + + + | Height | 160 cm (5' 3") | 12/15/2016 10:48 AM | | | | | PST | | + + + + + | Body Mass Index | 19.84 | 12/15/2016 10:48 AM | | | | | PST | | + + + + + documented in this encounter Discharge Instructions Instructions Gisela Peña RN - 12/15/2016Formatting of this note might be different fr om the original. Patient discharge instructions: Remove catheter for any redness, swelling, bleeding. Remove catheter in 3 days. May take other pain medicines prescribed with pain catheter in place. Call hospital and ask for on-call anesthesiologist for any other questions. AttachmentsThe following attachments cannot be sent through Care Everywhere.PAIN RESPONSE, UNDERSTANDING (INDONESIAN)PAIN MANAGEMENT AFTER SURGERY (INDONESIAN)PAIN, COMMUNICATING ABOUT (EN GLISH)PAIN, MEASURING YOUR (INDONESIAN)PAIN,MEDICINE FOR (INDONESIAN)documented in this encounte r Medications at Time of Discharge + + [...] | | | | | | (NICOLLE AVILESMIES | day. | | | | | | OMEGA-3 DHA PO) | | | | | | + + + +---------+ + + | simvastatin | Take 20 mg by mouth | | 0 | | | | (ZOCOR) 20 mg tablet | nightly. | | | | | + + + +---------+ + + | | Take 1-3 tablets by | | 0 | 08/19/20 | | | acetaminophen-codein | mouth as needed. | | | 16 | 7 | | e (TYLENOL #3) | | | | | | | 300-30 mg per tablet | | | | | | + + + +---------+ + + | clindamycin | Take 150 mg by mouth | | 0 | 07/09/20 | | | (CLEOCIN) 150 mg | 4 times daily. | | | 16 | 7 | | capsule | | | | | | + [...] 1 patch onto | | 0 | 08/19/20 | | | (VIVELLE-DOT) 0.0375 | the skin Twice a | | | 16 | 7 | | MG/24HR | week. | | | | | + + + +---------+ + + | gabapentin | Take 1 capsule by | 28 | 0 | 12/15/19 | | | (NEURONTIN) 300 mg | mouth 4 times daily | capsule | | 17 | 7 | | capsule | for 7 days. | | | | | + + + +---------+ + + | METOPROLOL | TABS 25-50 mg daily | | 0 | 07/22/20 | 04/10/201 | | TARTRATE PO | | | | 12 | 7 | + + + +---------+ + + | sodium | Take 177 mLs by | 1 kit | 0 | 08/24/20 | | | sulfate-potassium | mouth 2 times daily. | | | 16 | 7 | | sulfate-magnesium | Take 1st dose at | | | | | | sulfate (SUPREP | 4PM And 2nd dose at | | | | | | BOWEL PREP) oral | 8PM or later day | | | | | | solution | prior to procedure | | | | | + + + +---------+ + + | zolpidem (AMBIEN | | | 0 | 08/04/20 | | | CR) 12.5 MG CR | | | | 10 | 7 | | tablet | | | | | | + + + +---------+ + + documented as of this encounter Progress Notes John Munoz II, MD - 12/16/2016 8:38 AM PSTANESTHESIA ACUTE PAIN TELEPHONE FOLLOW- UP I called Ms. Reynoso this morning at her home. She is unable to travel to [place] for follow up of her femoral nerve pain catheter/pump due to weather. She states that she has well controlled pain. Today it is 4/10 prior to taking medications and 2/10 after. She has no numbness other than in savanah leg. She states the site appears c lean and uninfected. She states that the pain ball is shrinking in size from yesterday. Th ere is no fluid leaking around the site. She denies numbness around her lips or mouth. No tinitis or vision changes. No palpitations. She states that now that her pain is controlle d she is able to stay hydrated, eat, and sleep. She had been unable to remain hydrated prio r to the nerve catheter placement yesterday due to pain induced nausea. She states she is v tonia happy with her care and asked me to thank Dr. Parekh as well for "going the extra mile. " My impression is that she has well controlled pain of her patella fracture s/p repair now w ith the femoral nerve catheter. I feel she is unlikely to require more emergency visits due to this intervention when combined with oral analgesics. The plan is to continue the ropivicaine 0.2% infusion through the femoral nerve catheter fo r two more days. Continue gabapentin 300mg PO atc. Continue vicodin PRN. I anticipate she will do well once catheter removed in two days. documented in this encounter Plan of Treatment Not on filedocumented as of this encounter Visit Diagnoses + + | Diagnosis | + + | Post-op pain - Primary Other acute postoperative pain | + + documented in this encounter Administered Medications + +--------+ +------+------+------+ | Medication Order | MAR | Action | Dose | Rate | Site | | | Action | Date | | | | + +--------+ +------+------+------+ | morphine injection 4 mg 4 mg, | Given | 12/15/19 | 4 mg | | | | Intravenous, ONCE, e 12/15/16 at | | 17 11:11 | | | | | 1105, For 1 dose | | AM PST | | | | + +--------+ +------+------+------+ +---+---+ | | | +---+---+ + +-------+ +------+---+---+ | ondansetron (ZOFRAN) injection | Given | 12/15/19 | 4 mg | | | | 4 mg 4 mg, Intravenous, ONCE, | | 17 11:11 | | | | | 12/15/16 at 1105, For 1 dose | | AM PST | | | | + +-------+ +------+---+---+ +---+---+ | | | +---+---+ documented in this encounter
--- OUTSIDE RECORDS SUMMARY | ~2019-11-07 | XMS | Encounter Summary ---
Demographics + + + | Address | [address] | | | [place] [address] | + + + | Home Phone | | + + + | Preferred Language | Unknown | + + + | Marital Status | | + + + | Mormonism Affiliation | Unknown | + + + | Race | Unknown | + + + | Ethnic Group | Unknown | + + + Author + + + | Author | [facility] | | | and [place] | + + + | Organization | [facility] | | | and [...] Team Providers + +------+ + | Care Plate And Weld Inspector Name | Role | Phone | [...] | | | | | | | [place] REMOVAL | | | | | | [...] + + | 07/14/ | Hospital | [facility] | Tyler Florian | Pain from implanted | | 2017 | Encounter | MED CTR OR INTRA OP | MD Carol [address] | hardware, subsequent | | | | [address] | [place], [place] | encounter | | | | [place], [place] | [address] | | | | | [address] | | | | | | [phone] | | | +--------+ + + + [...] You can't be awakened Date Last Reviewed: 08/25/[id number] [employer]. [address] [place] [address], [place] [address]. All righ ts reserved. This information is [...] mg of acetaminophen (Tylenol) per day. Hydrocodone-acetaminophen (Doole ) and Oxycodone-acetaminophen (Percocet) have 325 mg [...]
--- OUTSIDE RECORDS SUMMARY | ~2019-11-07 | XMS | Encounter Summary ---
Demographics + + + | Address | [address] | | | [place] [address] | + + + | Home Phone | | + + + | Preferred Language | Unknown | + + + | Marital Status | | + + + | Baptist Affiliation | Unknown | + + + | Race | Unknown | + + + | Ethnic Group | Unknown | + + + Author + + + | Author | [facility] | | | and [place] | + + + | Organization | [facility] | [...] Team Providers + +------+ + | Care Photoengraving Finisher Name | Role | Phone | + +------+ + PCP | Unavailable | + +------+ + Encounter Details +--------+ + + + + | Date | Type | Department | Care Team | Description | +--------+ + + + + | 05/05/ | Hospital | [facility] | Conversion | Pain | | 2014 | Encounter | CONVERSION [address] | Transaction, | | | | | [address] | Provider Unknown | | | | | [place], [place] | [phone] | | | | | [address] | | | | | | [phone] | | | +--------+ + + + [...] ARM < 1 HOUR | Routin | 11/05/2011 | | Results for this | | | e | 4:39 AM | | procedure are in the | | | | PST | | results section. | + +--------+ + + + documented in this encounter Results [place] C-Arm < 1 Hour (11/05/2011 4:39 AM PST) + + | Specimen [...]
--- OUTSIDE RECORDS SUMMARY | ~2019-11-07 | XMS | Encounter Summary ---
Demographics + + + | Address | [address] | | | [place] [address] | + + + | Home Phone | | + + + | Preferred Language | Unknown | + + + | Marital Status | | + + + | Hinduism Affiliation | Unknown | + + + | Race | Unknown | + + + | Ethnic Group | Unknown | + + + Author + + + | Author | [facility] | | | and [place] | + + + | Organization | [facility] | | [...] Team Providers + +------+ + | Care Cap Maker Name | Role | Phone | [...] 2016 | Changes | ORTHOPEDIC SURGERY | Hardwood Finisher | | | | | [address] [place] [address] | | | | | | [place] | | | | | | [address] | | | | | | [phone] | | | +--------+ + + + [...]
--- OUTSIDE RECORDS SUMMARY | ~2019-11-07 | XMS | Encounter Summary ---
Demographics + + + | Address | [address] | | | [place] [address] | + + + | Home Phone | | + + + | Preferred Language | Unknown | + + + | Marital Status | | + + + | Scientology Affiliation | Unknown | + + + | Race | Unknown | + + + | Ethnic Group | Unknown | + + + Author + + + | Author | [facility] | | | and [place] | + + + | Organization | [facility] | | | and [place] [...] Team Providers + +------+ + | Care Adult Family Home Program Manager Name | Role | Phone | + +------+ + PCP | Unavailable | + +------+ + Encounter Details +--------+ + + + + | Date | Type | Department | Care Team | Description | +--------+ + + + + | 05/05/ | Hospital | [facility] | Conversion | Pain | | 2014 | Encounter | CONVERSION [address] | Transaction, | | | | | [address] | Provider Unknown | | | | | [place], [place] | [phone] | | | | | [address] | | | | | | [phone] | | | +--------+ + + + [...]
--- OUTSIDE RECORDS SUMMARY | ~2019-11-07 | XMS | Encounter Summary ---
Demographics + + + | Address | [address] | | | [place] [address] | + + + | Home Phone [...] [facility] | | | and [place] | + + + | Organization | [facility] | | | and [...] Team Providers + +------+ + | Care Wet Process Miller Name | Role | Phone | + +------+ + | Tomer Wills MD | PCP | | + +------+ + Encounter Details +--------+ + + + + | Date | Type | Department | Care Team | Description | +--------+ + + + + | 06/02/ | Orders Only | [facility] | Tyler Florian | S/P ORIF (open | | 2017 | | ORTHOPEDIC SURGERY | MD Carol [address] | reduction internal | | | | [address] | [place] | fixation) fracture | | | | [place], [place] | [address] | (Primary Dx) | | | | [address] | | | | | | [phone] | | | +--------+ + + + [...]
--- OUTSIDE RECORDS SUMMARY | ~2019-11-07 | XMS | Encounter Summary ---
Demographics + + + | Address | [address] | | | [place] [address] | + + + | Home Phone [...] Organization | [facility] | | | and [place] [...] Team Providers + +------+ + | Care Software Engineer Intern Name | Role | Phone | + +------+ + | Tomer Wills MD | PCP | | + +------+ + Encounter Details +--------+ + + + + | Date | Type | Department | Care Team | Description | +--------+ + + + + | 05/31/ | Hospital | [facility] | Tyler Florian | S/P ORIF (open | | 2017 | Encounter | MED CTR [place] XRAY | MD Carol [address] | reduction internal | | | | [address] | [place] | fixation) fracture | | | | [place] | [address] | | | | | [address] | | | | | | [phone] | | | +--------+ + + + [...] mg by mouth | | 0 | 03/ | | | 5 mg tablet | [...] RIGHT 1 - 2 | Routin | 2017 | S/P ORIF (open | Results for this | | VW | e | 10:34 AM | reduction internal | procedure are in the | | | | PDT | fixation) fracture | results section. | + +--------+ + + + documented in this encounter Results XR Knee Right 1 - 2 Vw (2017 10:34 AM PDT) + + | Specimen | + + | | + + + + + | Narrative | Performed At | + + + | EXAM:XR KNEE RIGHT 1 - 2 VW CLINICAL HISTORY: S/P ORIF RIGHT | [facility] | | PATELLAR DOS 12/24/16 COMPARISON: Right knee radiographs dating to | | | December 10, 2016. FINDINGS: Frontal and lateral views. There | | | are K wire pins and a cerclage wire that are in place transfixing a | | | patellar fracture. The hardware is intact. Minimal lucency remains | | | consistent with interval healing. There is persistent soft tissue | | | swelling diffusely over the anterior aspect of the distal quadriceps | | | tendon, patella, and patellar tendon. There is a joint effusion. | | | IMPRESSION - Healing patellar fracture with intact hardware. | | | Persistent soft tissue thickening and a joint effusion. Dictated | | | and Signed by: Lance Ivan MD Electronically signed: 2017 | | | 10:54 AM | | + + + + + | Procedure Note | + + | Ramana, Rad Results In - 2017 10:57 AM PDT EXAM:XR KNEE RIGHT 1 - 2 VW | | | | CLINICAL HISTORY: S/P ORIF RIGHT PATELLAR DOS 12/24/16 | | | | COMPARISON: Right knee radiographs dating to December 10, 2016. | | | | FINDINGS: Frontal and lateral views. | | | | There are K wire pins and a cerclage wire that are in place transfixing a | | patellar fracture. The hardware is intact. Minimal lucency remains consistent | | with interval healing. There is persistent soft tissue swelling diffusely over | | the anterior aspect of the distal quadriceps tendon, patella, and patellar | | tendon. There is a joint effusion. | | | | IMPRESSION - | | | | Healing patellar fracture with intact hardware. | | | | Persistent soft tissue thickening and a joint effusion. | | | | Dictated and Signed by: Lance Ivan MD | | Electronically signed: 2017 10:54 AM | + + + +---------+ + + | Performing | Address | City/State/Zipcode | Phone Number | | Organization | | | | + +---------+ + + | [facility] | | | | + +---------+ + + documented in this encounter Visit Diagnoses + + | Diagnosis | + + | S/P ORIF (open reduction internal fixation) fracture | + + documented in this encounter"
--- OUTSIDE RECORDS SUMMARY | ~2019-11-07 | XMS | Encounter Summary ---
Demographics + + + | Address | [address] | | | [place] [address] | + + + | Home Phone | | + + + | Preferred Language | Unknown | + + + | Marital Status | | + + + | Jain Affiliation | Unknown | + + + | Race | Unknown | + + + | Ethnic Group | Unknown | + + + Author + + + | Author | [facility] | | | and [place] | + + + | Organization | [facility] [...] Team Providers + +------+ + | Care Egg Breaker Name | Role | Phone | + +------+ + PCP | Unavailable | + +------+ + Encounter Details +--------+ + + + + | Date | Type | Department | Care Team | Description | +--------+ + + + + | 08/29/ | Hospital | [facility] | | | | 2008 | Encounter | MED CTR XRAY [address] | | | | | | [place] | | | | | | [place] [address] | | | | | | [phone] | | | +--------+ + + + [...]
--- OUTSIDE RECORDS SUMMARY | ~2019-11-07 | XMS | Encounter Summary ---
Demographics + + + | Address | [address] | | | [place] [address] | + + + | Home Phone | | + + + | Preferred Language | Unknown | + + + | Marital Status | | + + + | Samaritan Affiliation | Unknown | + + + | Race | Unknown | + + + | Ethnic Group | Unknown | + + + Author + + + | Author | [facility] | | | and [place] | + + + | Organization | [facility] | | | and [place] [...] Team Providers + +------+ + | Care Truck Operator Name | Role | Phone | + +------+ + PCP | Unavailable | + +------+ + Encounter Details +--------+ + + + + | Date | Type | Department | Care Team | Description | +--------+ + + + + | 05/05/ | Hospital | [facility] IP | Conversion | Pain | | 2014 | Encounter | CONVERSION DEP [address] | Transaction, | | | | | [address] | Provider Unknown | | | | | [place], [place] | [phone] | | | | | [address] | | | | | | [phone] | | | +--------+ + + + [...]
--- OUTSIDE RECORDS SUMMARY | ~2019-11-07 | XMS | Encounter Summary ---
Demographics + + + | Address | [address] | | | [place] [address] | + + + | Home Phone [...] + | Author | [facility] | | | and [place] | + + + | Organization | [facility] | | [...] Team Providers + +------+ + | Care Special Skills Officer Name | Role | Phone | + [...] + + | 03/30/ | Office | [facility] | Rosa Wall | S/P orthopedic | | 2017 | Visit | ORTHOPEDIC SURGERY | MD Carol [address] [place] [address] | surgery, follow-up | | | | [address] [facility] | [place] | exam (Primary Dx) | | | | [place] | [address] | | | | | [address] | | | | | | [phone] | | | +--------+---------+ + + + [...] MD - 03/30/2017 7:00 PM PDT [facility] ORTHOPEDIC SURGER Y [address] [facility] [address] OFFICE NOTE ROSA WALL MD Patient: LILIAN VERA Admitting: MR #: [id number] LOC: PT TYPE: Adm Date: 03/30/2017 : 1955 Lilian returns today for followup of her right patellar fracture that she sustained on 12/2016 and was subsequently treated with yeflzn-om-iuduk tension band wiring by Dr. Waylon alonso [...] cane. She has been working hard in lensgen therapy and has regained motion from approximately [...] for at least 6 months to a [facility] for secure healing of her fracture. She therefore will continue with her rehabilitati on with progressive walking and strengthening and will return for an x-ray check of her ri ght knee in approximately 2 months. ROSA WALL MD Dictated by ROSA WALL MD 03/30/2017 19:00:44 Transcribed on 03/31/2017 16:09:56 by clintg job# [id number] Confirmation #: [id number] cc: TOMER ROCHA MD [email or web address] MD - 03/30/2017 10:30 AM PDTSee soap note [id number].Electron [email or web address] signed by Rosa Wall MD at 03/30/2017 7:01 PM PDTdocumented in this encoun ter Plan of Treatment Not on filedocumented as of this encounter Visit Diagnoses + + | Diagnosis | + + | S/P orthopedic surgery, follow-up exam - Primary Follow-up examination, following | | other surgery | + + documented in this encounter
--- OUTSIDE RECORDS SUMMARY | ~2019-11-07 | XMS | Encounter Summary ---
Demographics + + + | Address | [address] | | | [place] [address] | + + + | Home Phone | | + + + | Preferred Language | Unknown | + + + | Marital Status | | + + + | Samaritan Affiliation | Unknown | + + + | Race | Unknown | + + + | Ethnic Group | Unknown | + + + Author + + + | Author | [facility] | | | and [place] | + + + | Organization | [facility] | | | [...] Team Providers + +------+ + | Care Centrifugal Casting Machine Tender Name | Role | Phone | + [...] | +--------+ + + + + | 10/28/ | Telephone | [facility] | Lance Aguiar MD | Insurance | | 2015 | | GASTROENTEROLOGY | [address] | Authorization | | | | [address] [facility] | [address] [place] | | | | | [address] [place], [place] | [address] | | | | | [address] | | | | | | [phone] | | | +--------+ + + + [...]
--- OUTSIDE RECORDS SUMMARY | ~2019-11-07 | XMS | Encounter Summary ---
Demographics + + + | Address | [address] | | | [place] [address] | + + + | Home Phone [...] Organization | [facility] | | [...] Team Providers + +------+ + | Care Bar Tacker Sewing Machine Name | Role | Phone | + +------+ + | Tomer Wills MD | PCP | | + +------+ + Encounter Details +--------+ + + + + | Date | Type | Department | Care Team | Description | +--------+ + + + + | 08/29/ | Orders Only | [facility] | Conversion | | | 2008 | | CONVERSION | Transaction, | | | | | INTERFACES | Provider Unknown | | | | | [phone] | [phone] | | | | | | | [...] MRI LUMBAR SPINE WO | Routin | 08/29/2009 | | Results for this | | CONTRAST | e | 11:05 AM | | procedure are in the | | | | PDT | | results section. | + +--------+ + + + documented in this encounter Results MRI Lumbar Spine wo Contrast (08/29/2009 11:05 AM PDT) + + | Specimen | + + | | + + + + + | Narrative | Performed At | + + + | Study was foreign film entered for reference only. | | + + + + + | Procedure Note | + + | Taurus Boles - 07/03/2019 5:13 AM PDT Study was foreign film entered for | | reference only. | + + documented in this encounter Visit Diagnoses Not on filedocumented in this encounter"
--- OUTSIDE RECORDS SUMMARY | ~2019-11-07 | XMS | Encounter Summary ---
Demographics + + + | Address | [address] | | | [place] [address] | + + + | Home Phone | | + + + | Preferred Language | Unknown | + + + | Marital Status | | + + + | Worship Affiliation | Unknown | + + + | Race | Unknown | + + + | Ethnic Group | Unknown | + + + Author + + + | Author | [facility] | | | and [place] | + + + | Organization | [facility] | | [...] Team Providers + +------+ + | Care Master Coastal Waters Name | Role | Phone | + [...] 2015 | | GASTROENTEROLOGY | [address] | | | | | [address] | [address] [place], [place] | | | | | [address] [place], [place] | [address] | | | | | [address] | | | | | | [phone] | | | +--------+ + + + [...]
--- OUTSIDE RECORDS SUMMARY | ~2019-11-07 | XMS | Encounter Summary ---
Demographics + + + | Address | [address] | | | [place] [address] | + + + | Home Phone | | + + + | Preferred Language | Unknown | + + + | Marital Status | | + + + | Cheondoism Affiliation | Unknown | + + + | Race | Unknown | + + + | Ethnic Group | Unknown | + + + Author + + + | Author | [facility] | | | and [place] | + + + | Organization | [facility] | | | [...] Team Providers + +------+ + | Care Television News Video Editor Name | Role | Phone | + [...] | | | | CENTER [address] | [address] [facility] | | | | | [place] | [place] [address] | | | | | [address] | [phone] | | | | | [phone] | | | +--------+ + + + [...] be sent through Care Everywhere.PAIN RESPONSE, UNDERSTANDING (SWISS)PAIN MANAGEMENT AFTER SURGERY (SWISS)PAIN, COMMUNICATING ABOUT (EN GLISH)PAIN, MEASURING YOUR (SWISS)PAIN,MEDICINE FOR (SWISS)documented in this encounte r Medications at Time [...] home. She is unable to travel to [place] for follow up of her femoral nerve [...]
--- OUTSIDE RECORDS SUMMARY | ~2019-11-07 | XMS | Encounter Summary ---
Demographics + + + | Address | [address] | | | [place] [address] | + + + | Home Phone | | + + + | Preferred Language | Unknown | + + + | Marital Status | | + + + | Sikh Affiliation | Unknown | + + + | Race | Unknown | + + + | Ethnic Group | Unknown | + + + Author + + + | Author | [facility] | | | and [place] | + + + | Organization | [facility] | | | and [...] Team Providers + +------+ + | Care Litigation Legal Assistant Name | Role | Phone | + +------+ + PCP | Unavailable | + +------+ + Encounter Details +--------+ + + + + | Date | Type | Department | Care Team | Description | +--------+ + + + + | 08/29/ | Hospital | [facility] | | | | 2008 | Encounter | MED CTR XRAY [address] | | | | | | [address] | | | | | | [place] [address] | | | | | | [phone] | | | +--------+ + + + [...]
--- OUTSIDE RECORDS SUMMARY | ~2019-11-07 | XMS | Encounter Summary ---
Demographics + + + | Address | [address] | | | [place] [address] | + + + | Home Phone | | + + + | Preferred Language | Unknown | + + + | Marital Status | | + + + | Evangelical Affiliation | Unknown | + + + | Race | Unknown | + + + | Ethnic Group | Unknown | + + + Author + + + | Author | [facility] | | | and [place] | + + + | Organization | [facility] | | | and [...] Team Providers + +------+ + | Care Potato Picker Name | Role | Phone | [...] | | | | | [address] | [place], [place] | | | | | [place] | [address] | | | | | [address] | [phone] | | | | | [phone] | | | +--------+ + + + [...] [address] | | eral | Antecubital; [id number] | Inessa Le RN | Radha Ontiveros [...]
--- OUTSIDE RECORDS SUMMARY | ~2019-11-07 | XMS | Encounter Summary ---
Demographics + + + | Address | [address] | | | [place] [address] | + + + | Home Phone | | + + + | Preferred Language | Unknown | + + + | Marital Status | | + + + | Yazidi Affiliation | Unknown | + + + | Race | Unknown | + + + | Ethnic Group | Unknown | + + + Author + + + | Author | [facility] | | | and [place] | + + + | Organization | [facility] | | | and [...] Team Providers + +------+ + | Care Adjusto Writer Operator Name | Role | Phone | + +------+ + | Tomer Wills MD | PCP | | + +------+ + Encounter Details +--------+ + + + + | Date | Type | Department | Care Team | Description | +--------+ + + + + | 05/31/ | Hospital | [facility] | Tyler Florian | S/P ORIF (open | | 2017 | Encounter | MED CTR N[facility] XRAY | MD Carol [address] | reduction internal | | | | [address] | [place] | fixation) fracture | | | | [place] | [address] | | | | | [address] | | | | | | [phone] | | | +--------+ + + + [...]
--- OUTSIDE RECORDS SUMMARY | ~2019-11-07 | XMS | Clinical Summary ---
Demographics + + + | Address | [address] | | | [place] [address] | + + + | Home Phone [...] + + + | Author | [facility] (Historical as of | | | 06-24-19) | + + + | Organization | [facility] (Historical as of | | | 06-24-19) | + + + | Address | Unknown | + + + | Phone | Unavailable | + + + Support + + + + + | Name | Relationship | Address | Phone | + + + + + | Ricardo Vera | ECON | [address] | | | | | [place] | | | | | [address] | | + + + + + | Diony Escobar | YOLI | Unknown | | + + + + + | Barbara Velásquez | YOLI | Unknown | | + + + + + Care Team Providers + +------+ + | Care Go Go Dancer Name | Role | Phone | + [...] +------+-------+ + | PREMERA | PREMER | [id number] | | | [address] [address] | | | A | [address] | | | [place] | | | [place] | | | | [address] | | | [place] | | | | | | | [place] | | | | | + +--------+ +------+-------+ + | [employer] | FC-NET | [id number] | | | | | | WORK [...] | Self | [birth year] | Home: | [address] | | | al/Fam | | 1955 | [phone] [place] [address] | | | vivien | | | [phone] | | + +--------+ +--------+ + +
--- OUTSIDE RECORDS SUMMARY | ~2019-11-07 | XMS | Encounter Summary ---
Demographics + + + | Address | [address] | | | [place] [address] | + + + | Home Phone | | + + + | Preferred Language | Unknown | + + + | Marital Status | | + + + | Spiritism Affiliation | Unknown | + + + | Race | Unknown | + + + | Ethnic Group | Unknown | + + + Author + + + | Author | [facility] | | | and [place] | + + + | Organization | [facility] | [...] Providers + +------+ + | Care Sales Review Clerk Name | Role | Phone | + [...] Provider Unknown | | | | | [phone] | [phone] | | | | | | | [...]
--- OUTSIDE RECORDS SUMMARY | ~2019-11-07 | XMS | Encounter Summary ---
Demographics + + + | Address | [address] | | | [place] [address] | + + + | Home Phone | | + + + | Preferred Language | Unknown | + + + | Marital Status | | + + + | Zoroastrianism Affiliation | Unknown | + + + | Race | Unknown | + + + | Ethnic Group | Unknown | + + + Author + + + | Author | [facility] | | | and [place] | + + + | Organization | [facility] | | | and [place] | [...] Team Providers + +------+ + | Care Cnc Mill Programmer Name | Role | Phone | + [...] ORTHOPEDIC SURGERY | MD Carol [address] | reduction internal | | | | [address] [facility] | [place] | fixation) fracture | | | | [place], [place] | [address] | (Primary Dx) | | | | [address] | | | | | | [phone] | | | +--------+ + + + [...]
--- OUTSIDE RECORDS SUMMARY | ~2019-11-07 | XMS | Encounter Summary ---
Demographics + + + | Address | [address] | | | [place] [address] | + + + | Home Phone | | + + + | Preferred Language | Unknown | + + + | Marital Status | | + + + | Faith Affiliation | Unknown | + + + | Race | Unknown | + + + | Ethnic Group | Unknown | + + + Author + + + | Author | [facility] | | | and [place] | + + + | Organization | [facility] | | | and [...] Team Providers + +------+ + | Care Ict Trainer Name | Role | Phone | + +------+ + PCP | Unavailable | + +------+ + Encounter Details +--------+ + + + + | Date | Type | Department | Care Team | Description | +--------+ + + + + | 05/05/ | Hospital | [facility] GENER[facility] IP | Conversion | Pain | | 2014 | Encounter | CONVERSION [address]P [address] | Transaction, | | | | [address] | Provider Unknown | | | | | [place], [place] | [phone] | | | | | [address] | | | | | | [phone] | | | +--------+ + + + [...] Procedure Note | + + | Taurus oBles - 06/24/2019 1:02 AM PDT This is a non-reportable procedure | | without a radiologist report and isused for image storage only | + + documented in this encounter Visit Diagnoses + + | Diagnosis | + + | Pain Generalized pain | + + documented in this encounter"
--- OUTSIDE RECORDS SUMMARY | ~2019-11-07 | XMS | Encounter Summary ---
Demographics + + + | Address | [email or web address] | | | [place] [address] | + + + | Home Phone [...] | Organization | [facility] | | | and [...] Team Providers + +------+ + | Care Prn Physical Therapist Name | Role | Phone | + [...] + + | 03/09/ | Telephone | [facility] | Lance Aguiar MD | Gastric Reflux | | 2016 | | GASTROENTEROLOGY | [address] | | | | | [address] | [address] [place], [place] | | | | | [address] [place], [place] | [address] | | | | | [address] | | | | | | [phone] | | | +--------+ + + + [...]
--- OUTSIDE RECORDS SUMMARY | ~2019-11-07 | XMS | Encounter Summary ---
Demographics + + + | Address | [address] | | | [place] [address] | + + + | Home Phone [...] Organization | [facility] | | | and [place] [...] Team Providers + +------+ + | Care Axle Turner Name | Role | Phone | + [...] + + | 10/28/ | Telephone | [facility] | Lance Aguiar MD | Insurance | | 2015 | | GASTROENTEROLOGY | [address] | Authorization | | | | [address] [facility] | [address] [place] | | | | | [address] [place], [place] | [address] | | | | | [address] | | | | | | [phone] | | | +--------+ + + + [...]
--- OUTSIDE RECORDS SUMMARY | ~2019-11-07 | XMS | Encounter Summary ---
Demographics + + + | Address | [address] | | | [place] [address] | + + + | Home Phone | | + + + | Preferred Language | Unknown | + + + | Marital Status | | + + + | Latter-Day Affiliation | Unknown | + + + | Race | Unknown | + + + | Ethnic Group | Unknown | + + + Author + + + | Author | [facility] | | | and [place] | + + + | Organization | [facility] | | | and [...] Team Providers + +------+ + | Care See Wheeler Name | Role | Phone | + +------+ + PCP | Unavailable | + +------+ + Encounter Details +--------+ + + + + | Date | Type | Department | Care Team | Description | +--------+ + + + + | 06/28/ | Hospital | [facility] | | | | 2006 | Encounter | MED CTR GENERIC OP | | | | | | CONV DEPT [address] | | | | | | [place], | | | | | | [place] [address] | | | | | | [phone] | | | +--------+ + + + [...]
--- OUTSIDE RECORDS SUMMARY | ~2019-11-07 | XMS | Encounter Summary ---
Demographics + + + | Address | [address] | | | [place] [address] | + + + | Home Phone [...] | Organization | [facility] [...] Providers + +------+ + | Care Plate Maker Name | Role | Phone | [...] | ORTHOPEDIC SURGERY | MD Carol [address] | | | | | [address] | [place] | | | | | [place] | [address] | | | | | [address] | | | | | | [phone] | | | +--------+ + + + [...]
--- OUTSIDE RECORDS SUMMARY | ~2019-11-07 | XMS | Encounter Summary ---
Demographics + + + | Address | [address] | | | [place] [address] | + + + | Home Phone [...] + | Organization | [facility] | | | and [...] Team Providers + +------+ + | Care Meat Grader Name | Role | Phone | + [...] | ORTHOPEDIC SURGERY | MD Carol [address] | reduction internal | | | | [address] [facility] | [place] | fixation) fracture | | | | [place], [place] | [address] | (Primary Dx) | | | | [address] | | | | | | [phone] | | | +--------+ + + + [...]
--- OUTSIDE RECORDS SUMMARY | ~2019-11-07 | XMS | Encounter Summary ---
Demographics + + + | Address | [address] | | | [place] [address] | + + + | Home Phone | | + + + | Preferred Language | Unknown | + + + | Marital Status | | + + + | Cheondoism Affiliation | Unknown | + + + | Race | Unknown | + + + | Ethnic Group | Unknown | + + + Author + + + | Author | [facility] | | | and [place] | + + + | Organization | [facility] | | | and [...] Team Providers + +------+ + | Care Clinical Appeals Reviewer Name | Role | Phone | + [...] + + | 08/11/ | Telephone | [facility] | Tyler Florian | Appointment | | 2016 | | ORTHOPEDIC SURGERY | MD Carol [address] [place] [address] | | | | | [address] [facility] | [place] | | | | | [place] | [address] | | | | | [address] | | | | | | [phone] | | | +--------+ + + + [...]
--- OUTSIDE RECORDS SUMMARY | 2019-11-07 09:18 | XMS ---
PreManage Notification: JONELLE VERA Security Maintenance Of Way Clerk Events No recent Security Events currently on file CRITERIA MET - [facility] - Has Care Guidelines - PDMP CARE PROVIDERS JOSEFINA, [facility] Medicine 01/23/2019-Current [facility] [employer] PHONE: [phone] Primary Care Primary Care Current PHONE: Unknown Keyshawn has no Care Guidelines for this patient. Care History Medical/Surgical 02/17/2019 [facility] - W SPOKE WITH PATIENT PCP OFFICE- PATIENT LAST SEEN BY PCP IN DECEMBER 2018. - PATIENT HAS A NEUROLOGIST DR DEL RIO IN [place], [place]. - PER PATIENT - PATIENT HAS A TICKET SPECULATOR IN [place]. PCP WAS NOT AWARE OF THE TICKET SPECULATOR - THEY ARE AWARE NOW. E.D. VISIT COUNT (12 MO.) 3 [facility] TOTAL 3 NOTE: Visits indicate total known visits. ED/UCC VISIT TRACKING (12 MO.) 11/07/2019 09:15 [facility] [place] TYPE: Emergency COMPLAINT: - RAPID HEART RATE 02/17/2019 06:10 [facility] [place] TYPE: Emergency COMPLAINT: - SOB DIAGNOSES: - Allergy status to sulfonamides status - Allergy status to oth drug/meds/biol subst status - Unspecified atrial fibrillation - Acquired absence of both cervix and uterus - Tachycardia, unspecified - Other senior care (current) drug therapy 01/21/2019 09:00 [facility] [place] TYPE: Emergency COMPLAINT: - RAPID HEART RATE DIAGNOSES: - Palpitations - Other shredding specialist (current) drug therapy - Supraventricular tachycardia - Acquired absence of both cervix and uterus - Allergy status to sulfonamides status - Unspecified atrial fibrillation - Allergy status to oth drug/meds/biol subst status INPATIENT VISIT TRACKING (12 MO.) No inpatient visits to display in this time frame [email or web address]
[2019-11-07] MEDS ORDERED: [UNRECOGNIZED DRUG - OTHER] PO (09:29)
[2019-11-07] MEDS ORDERED: CARTIA XT120 MG PO (09:31)
[2019-11-07] MEDS ORDERED: AZITHROMYCIN500 MG PO (10:56)
--- NOTE | 2019-11-08 06:23 | EKG ---
[facility] [address] [facility] [place], [place] [address] Signed Sinus tachycardia Otherwise normal ECG When compared with ECG of 17-FEB-2019 06:14, No significant change was found Confirmed by EMMANUEL DAS MD ([id number]) on 11/08/2019 6:22:50 AM Electronically Signed By: EMMANUEL DAS MD 11/08/19622 PATIENT NAME: JONELLE VERA Electrocardiogram DATE OF : 55 PHYSICIAN: EMMANUEL ADS MD REPORT #: [id number] REPORT IS CONFIDENTIAL AND NOT TO BE RELEASED WITHOUT AUTHORIZATION
== END 2019-11-07 11:49 | disposition home or self-care (01) ==
LOC: ED 09:15
DX: R00.0 Tachycardia, unspecified (principal); R00.2 Palpitations; I48.91 Unspecified atrial fibrillation; Z88.2 Allergy status to sulfonamides; Z88.8 Allergy status to other drugs, medicaments and biological substances; Z79.899 Other long term (current) drug therapy
CPT/HCPCS: 71045; 80053; 83735; 83880; 84484; 85025; 93005; 93010; 99284-25; J7030

== ENCOUNTER 2021-03-28 23:44 | Emergency (ER) | payer MEDICARE, OTHER ==
[~2021-03-28] VITALS: Ht 160 cm; Wt 49.9 kg
[~2021-03-28 23:44] MED LIST changes: +AZITHROMYCIN500 MG PO; +CARTIA XT120 MG PO; +[UNRECOGNIZED DRUG - OTHER] PO
--- OUTSIDE RECORDS SUMMARY | 2021-03-28 23:48 | XMS ---
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 Care History Medical/Surgical 02/17/2019 [facility] - [facility] SPOKE WITH PATIENT PCP OFFICE- PATIENT LAST SEEN BY PCP IN DECEMBER 2018. - PATIENT HAS A NEUROLOGIST DR DEL RIO IN [place], [place]. - PER PATIENT - PATIENT HAS A WARP PLACER IN [place]. PCP WAS NOT AWARE OF THE WARP PLACER - THEY ARE AWARE NOW. E.D. VISIT COUNT (12 MO.) [address] [place] [address] TOTAL 1 NOTE: Visits indicate total known visits. ED/UCC VISIT TRACKING (12 MO.) 03/28/2021 23:45 [facility] [place] TYPE: Emergency COMPLAINT: - IRREGULAR HEART BEAT INPATIENT VISIT TRACKING (12 MO.) No inpatient visits to display in this time frame [email or web address]
--- NOTE | 2021-03-30 11:31 | EKG ---
[facility] [address] [facility] [place] [address] Signed Sinus rhythm with 1st degree AV block Possible Left atrial enlargement Septal infarct , age undetermined Abnormal ECG When compared with ECG of 07-NOV-2019 09:50, Septal infarct is now present Confirmed by EMMANUEL DAS MD ([id number]) on 03/30/2021 11:31:16 AM Electronically Signed By: EMMANUEL DAS MD 03/30/21 1131 PATIENT NAME: JONELLE VERA Electrocardiogram DATE OF : 55 PHYSICIAN: EMMANUEL DAS MD REPORT #: [id number] REPORT IS CONFIDENTIAL AND NOT TO BE RELEASED WITHOUT AUTHORIZATION
== END 2021-03-29 01:51 | disposition home or self-care (01) ==
LOC: ED 23:44
DX: R00.0 Tachycardia, unspecified (principal); I48.91 Unspecified atrial fibrillation; Z88.2 Allergy status to sulfonamides; Z88.8 Allergy status to other drugs, medicaments and biological substances; Z79.899 Other long term (current) drug therapy
CPT/HCPCS: 80053; 83735; 84484; 85025; 93005; 93010; 99285-25

== ENCOUNTER 2023-01-25 15:16 | Emergency (ER) | payer OTHER, MEDICARE ==
[~2023-01-25] VITALS: Ht 160 cm; Wt 49.9 kg
--- OUTSIDE RECORDS SUMMARY | 2023-01-25 15:18 | XMS ---
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 Care History Medical/Surgical 02/17/2019 [facility] - [facility] SPOKE WITH PATIENT PCP OFFICE- PATIENT LAST SEEN BY PCP IN DECEMBER 2018. - PATIENT HAS A NEUROLOGIST DR DEL RIO IN [place], [place]. 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 PCP WAS NOT AWARE OF THE FUEL OIL CLERK - THEY ARE AWARE NOW. E.D. VISIT COUNT (12 MO.) 1 MARIBEL Gomez TOTAL 1 NOTE: Visits indicate total known visits. ED/UCC VISIT TRACKING (12 MO.) 01/25/2023 15:17 [facility] [place] TYPE: Emergency COMPLAINT: - FALL, HEAD INJURY INPATIENT VISIT TRACKING (12 MO.) No inpatient visits to display in this time frame [id number]
--- NOTE | 2023-01-26 19:29 | EKG ---
[facility] [address] [facility] [place] [address] Signed Sinus tachycardia Low voltage QRS Cannot rule out Anterior infarct (cited on or before 28-MAR-2021) Abnormal ECG When compared with ECG of 28-MAR-2021 23:55, Nonspecific T wave abnormality now evident in Inferior leads Nonspecific T wave abnormality, worse in Anterolateral leads Confirmed by Gena Og MD () on 01/26/2023 7:29:36 PM Electronically Signed By: GENA OG MD 01/26/23 192 PATIENT NAME: JONELLE VERA Electrocardiogram DATE OF : 55 PHYSICIAN: GENA OG MD REPORT #: [id number] REPORT IS CONFIDENTIAL AND NOT TO BE RELEASED WITHOUT AUTHORIZATION
== END 2023-01-25 17:28 | disposition home or self-care (01) ==
LOC: ED 15:16
DX: S01.01XA Laceration without foreign body of scalp, initial encounter (principal); F10.129 Alcohol abuse with intoxication, unspecified; W01.10XA Fall on same level from slipping, tripping and stumbling with subsequent striking against unspecified object, initial encounter; Y90.8 Blood alcohol level of 240 mg/100 ml or more; I48.91 Unspecified atrial fibrillation; Z88.2 Allergy status to sulfonamides; Z88.8 Allergy status to other drugs, medicaments and biological substances; Z79.899 Other long term (current) drug therapy
CPT/HCPCS: 36415; 70450; 72125; 80053; 81001; 85025; 90471; 90714; 93005; 93010; 96374; 96375; 99284-25; G0480; J1170; J2405

== ENCOUNTER 2024-04-05 17:16 | Emergency (ER) | payer OTHER, MEDICARE ==
[~2024-04-05] VITALS: Ht 160 cm; Wt 51.5 kg
[2024-04-05] MEDS ORDERED: ondansetron HCL 4 MG/2 ML VIAL IV ONE (17:45)
[2024-04-05] MEDS ORDERED: ATORVASTATIN CA20 MG PO (17:47)
[2024-04-05] MEDS ORDERED: TIZANIDINE HCL2 MG PO (17:48)
[2024-04-05 18:27] LABS: BASOPHILS 0.9 % (0-2); EOSINOPHILS 0.2 % (0-6); HEMATOCRIT 43.4 % (35.0-50.0); HEMOGLOBIN 14.7 g/dL (12.0-18.0); LYMPHOCYTES 13.8 % (24-44); MCH 35.4 (27-36); MCHC 33.8 g/dl (30-36); MCV 104.9 fl (81-99); MONOCYTES 5.8 % (0-12); NEUTROPHILS 79.3 % (39-80); PLATELET COUNT 235 K/uL (140-440); RBC 4.14 M/ul (4.3-5.7); RDW 13.7 (10.5-15.0)
[2024-04-05 18:37] LABS: ALBUMIN 3.9 g/dL (3.4-5.0); ALBUMIN/GLOBULIN RATIO 1.15 (1.1-2.4); ANION GAP 20.9 (7-21); BILIRUBIN, TOTAL 0.4 ng/dL (0.2-1.0); BUN/CREATININE RATIO 12.5 (6.0-28.6); CALCIUM 8.1 mg/dL (8.5-10.1); CREATININE, SERUM 0.64 mg/dL (0.55-1.02); POTASSIUM 3.9 mmol/L (3.5-5.1); PROTEIN, TOTAL 7.3 g/dL (6.4-8.2)
[2024-04-05 18:57] LABS: ABO O; RH NEGATIVE
[2024-04-05 18:58] LABS: ANTIBODY SCREEN NEGATIVE
[2024-04-05 19:27] VITALS: BP 120/79
== END 2024-04-05 19:28 | disposition home or self-care (01) ==
LOC: ED 17:16
PROVIDERS: Emergency Medicine
DX: S00.03XA Contusion of scalp, initial encounter (principal); W18.30XA Fall on same level, unspecified, initial encounter; Z88.2 Allergy status to sulfonamides; Z88.8 Allergy status to other drugs, medicaments and biological substances; Z79.899 Other long term (current) drug therapy
CPT/HCPCS: 36415; 70450; 72125; 80053; 80307; 85025; 86850; 86900; 86901; 96374; 99284-25; G0480; J2405